=== PATIENT | male | born 1940 | race Caucasian/White ===

== ENCOUNTER 2024-06-07 18:46 | Emergency (ER) | payer MEDICARE ==
[2024-06-07 19:01] VITALS: RESP 18
--- NOTE | 2024-06-07 19:43 | ED ---
Abdominal Pain HPI - General Chief Complaint: Abdominal Pain Stated Complaint: abd pain Time Seen by Provider: 06/07/24 19:05 Source: patient, family, EMS, RN notes reviewed Mode of arrival: EMS Limitations: no limitations - History of Present Illness Initial Comments: This is an 83-year-old male who presents to the emergency department for abdominal pain. Patient reports that he has been having pain in the right groin region for several days and has also had a rash to this area. Today he noticed that when he stood up the pain became severe in the groin and right lower quadrant and he was unable to walk. Per his sister they also noticed him to be short of breath. EMS was ultimately contacted to bring the patient to the emergency department. Denies any nausea or vomiting. He does note increased urinary frequency. Denies any changes in bowel habits. His sister also notes that over the last few weeks his balance seems to be off. His Depakote was just increased and she is unsure if it may be related to that. MD Complaint: abdominal pain - Related Data Home Medications Medication Instructions Recorded Confirmed Aspirin EC [Ecotrin Low Dose] 81 mg PO DAILY@1200 06/07/24 06/07/24 Divalproex Sodium [Divalproex 500 mg PO BID 06/07/24 06/07/24 Sodium ER] Donepezil [Aricept] 10 mg PO DAILY 06/07/24 06/07/24 Nystatin 100,000 Unit/gm Powd 1 applic TOPICAL BID 06/07/24 06/07/24 [Mycostatin Powder] amLODIPine [Norvasc] 5 mg PO DAILY@1200 06/07/24 06/07/24 levETIRAcetam [Keppra] 1,000 mg PO Q12HR 06/07/24 06/07/24 Allergies Allergy/AdvReac Type Severity Reaction Status Date / Time No Known Allergies Allergy Verified 06/07/24 20:15 Review of Systems ROS Statement: Those systems with pertinent positive or pertinent negative responses have been documented in the HPI. ROS Other: All systems not noted in ROS Statement are negative. Past Medical History Past Medical History: Unable to Obtain, Hypertension History of Any Multi-Drug Resistant Organisms: None Reported Past Surgical History: Unable to Obtain Past Psychological History: No Psychological Hx Reported Smoking Status: Never smoker Past Alcohol Use History: Rare Past Drug Use History: None Reported General Exam Limitations: no limitations General appearance: alert, in no apparent distress Head exam: Present: atraumatic, normocephalic, normal inspection Respiratory exam: Present: normal lung sounds bilaterally. Absent: respiratory distress, wheezes, rales, rhonchi, stridor Cardiovascular Exam: Present: regular rate, normal rhythm, normal heart sounds. Absent: systolic murmur, diastolic murmur, rubs, gallop, clicks GI/Abdominal exam: Present: soft, tenderness (RLQ), normal bowel sounds, hernia. Absent: distended Neurological exam: Present: alert, oriented X3, CN II-XII intact Psychiatric exam: Present: normal affect, normal mood Skin exam: Present: warm, dry, intact, normal color. Absent: rash Course Vital Signs 06/07/24 06/07/24 18:57 21:53 Temperature 97.7 F 97.8 F Pulse Rate 58 L 63 Respiratory 18 18 Rate Blood Pressure 143/69 135/98 O2 Sat by Pulse 95 94 L Oximetry Medical Decision Making - Medical Decision Making This is an 83 year old male who presents to the emergency department for abdominal pain. Was pt. sent in by a medical professional or institution? @ -[facility] Did you speak to anyone other than the patient for history? @ -His sister provided the information about the Depakote level and shortness of breath Did you review nursing and triage notes? @ -Yes, and I agree, it is accurate with regards to the patient's symptoms. Were old charts reviewed? @ -No Differential Diagnosis? @ -Differential Dyspnea: Coronary syndrome, arrhythmia, tamponade, asthma, COPD, pulmonary embolism, pneumonia, pneumothorax, pulmonary effusion, anaphylaxis, diabetic ketoacidosis, flailed chest, pulmonary contusion, diaphragmatic rupture, anemia, neuromuscular, this is not meant to be an all-inclusive list. EKG interpreted by me (3pts min.)? @ -EKG interpreted by me demonstrating the following: Sinus bradycardia. Ventricular rate 59 bpm, NH interval 203 ms, QRS duration 103 ms, QTc 426 ms. X-rays interpreted by me (1pt min.)? @ -Chest x-ray obtained, my interpretation identifies no localized consolidations or infiltrates. CT interpreted by me (1pt min.)? @ -CT scan of the abdomen and pelvis obtained. My interpretation identifies a right inguinal hernia. U/S interpreted by me (1pt. min.)? @ -Not obtained What testing was considered but not performed? (CT, X-rays, U/S, labs)? Why? @ -None What meds were considered but not given? Why? @ -None Did you discuss the management of the patient with other professionals? @ -No Did you reconcile home meds? @ -No Was smoking cessation discussed for >3mins.? @ -No Was critical care preformed (if so, how long)? @ -No Were there social determinants of health that impacted care today? How? (Homelessness, low income, unemployed, alcoholism, drug addiction, transportation, low edu. Level, literacy, decrease access to med. care, [facility], rehab)? @ -No Was there de-escalation of care discussed even if they declined? (Discuss DNR or withdrawal of care, Hospice)? @ -No What co-morbidities impacted this encounter? (DM, HTN, Smoking, COPD, CAD, Cancer, CVA, Hep., AIDS, mental health diagnosis, sleep apnea, morbid obesity)? @ -HTN, seizure disorder Was patient admitted / discharged? @ -Discharged. Lab work unremarkable aside from Depakote level, which appears to be subtherapeutic. Urinalysis negative for signs of infection. Chest x-ray reveals no acute process. CT scan of the abdomen pelvis demonstrates a right inguinal hernia containing a loop of small bowel. No evidence of obstruction was identified. They advised correlation with physical exam for incarceration. He did have an inguinal hernia on exam, however this was easily reducible. P froylan was also not in any distress at that time. Advised that because this is reducible he can be discharged home. He was given information for follow-up with general surgery regarding the hernia and we discussed return parameters regarding it. Case discussed with ED attending, Dr. Gomes. Return precautions reviewed in depth, the patient is instructed to return to the emergency department with any new, worsening, or concerning symptoms. Patient verbalized understanding. Undiagnosed new problem with uncertain prognosis? @ -None Drug Therapy requiring intensive monitoring for toxicity (Heparin, Nitro, Insulin, Cardizem)? @ -None Were any procedures done? @ -None Diagnosis/symptom? @ -Right inguinal hernia Acute, or Chronic, or Acute on Chronic? @ -Acute Uncomplicated (without systemic symptoms) or Complicated (systemic symptoms)? @ -Uncomplicated Side effects of treatment? @ -None Exacerbation, Progression, or Severe Exacerbation] @ -Not applicable Poses a threat to life or bodily function? @ -No - Lab Data Result diagrams: 06/07/24 19:43 06/07/24 19:43 Lab Results 06/07/24 06/07/24 06/07/24 Range/Units 19:43 19:43 19:43 WBC 3.6 L (3.8-10.6) k/uL RBC 5.29 (4.30-5.90) m/uL Hgb 15.8 (13.0-17.5) gm/dL Hct 46.7 (39.0-53.0) % MCV 88.3 (80.0-100.0) fL MCH 29.8 (25.0-35.0) pg MCHC 33.8 (31.0-37.0) g/dL RDW 13.3 (11.5-15.5) % Plt Count 144 L (150-450) k/uL MPV 8.3 Neutrophils % 65 % Lymphocytes % 24 % Monocytes % 6 % Eosinophils % 3 % Basophils % 1 % Neutrophils # 2.3 (1.3-7.7) k/uL Lymphocytes # 0.9 L (1.0-4.8) k/uL Monocytes # 0.2 (0-1.0) k/uL Eosinophils # 0.1 (0-0.7) k/uL Basophils # 0.0 (0-0.2) k/uL Sodium 137 (137-145) mmol/L Potassium 4.1 (3.5-5.1) mmol/L Chloride 105 (98-107) mmol/L Carbon Dioxide 27 (22-30) mmol/L Anion Gap 5 mmol/L BUN 15 (9-20) mg/dL Creatinine 0.99 (0.66-1.25) mg/dL Est GFR (CKD-EPI)AfAm 82 (>60 ml/min/1.73 sqM) Est GFR (CKD-EPI)NonAf 71 (>60 ml/min/1.73 sqM) Glucose 111 H (74-99) mg/dL Plasma Lactic Acid Ryland 1.1 (0.7-2.0) mmol/L Calcium 9.3 (8.4-10.2) mg/dL Magnesium 2.3 (1.6-2.3) mg/dL Total Bilirubin 0.6 (0.2-1.3) mg/dL AST 29 (17-59) U/L ALT 23 (4-49) U/L Alkaline Phosphatase 63 (38-126) U/L Troponin I (0.000-0.034) ng/mL Total Protein 6.9 (6.3-8.2) g/dL Albumin 4.2 (3.5-5.0) g/dL Amylase 87 (30-110) U/L Lipase 73 (23-300) U/L Urine Color Urine Appearance (Clear) Urine pH (5.0-8.0) Ur Specific [place] (1.001-1.035) Urine Protein (Negative) Urine Glucose (UA) (Negative) Urine Ketones (Negative) Urine Blood (Negative) Urine Nitrite (Negative) Urine Bilirubin (Negative) Urine Urobilinogen (<2.0) mg/dL Ur Leukocyte Esterase (Negative) Valproic Acid 42.4 ug/mL 06/07/24 06/07/24 Range/Units 19:43 19:43 WBC (3.8-10.6) k/uL RBC (4.30-5.90) m/uL Hgb (13.0-17.5) gm/dL Hct (39.0-53.0) % MCV (80.0-100.0) fL MCH (25.0-35.0) pg MCHC (31.0-37.0) g/dL RDW (11.5-15.5) % Plt Count (150-450) k/uL MPV Neutrophils % % Lymphocytes % % Monocytes % % Eosinophils % % Basophils % % Neutrophils # (1.3-7.7) k/uL Lymphocytes # (1.0-4.8) k/uL Monocytes # (0-1.0) k/uL Eosinophils # (0-0.7) k/uL Basophils # (0-0.2) k/uL Sodium (137-145) mmol/L Potassium (3.5-5.1) mmol/L Chloride (98-107) mmol/L Carbon Dioxide (22-30) mmol/L Anion Gap mmol/L BUN (9-20) mg/dL Creatinine (0.66-1.25) mg/dL Est GFR (CKD-EPI)AfAm (>60 ml/min/1.73 sqM) Est GFR (CKD-EPI)NonAf (>60 ml/min/1.73 sqM) Glucose (74-99) mg/dL Plasma Lactic Acid [place] (0.7-2.0) mmol/L Calcium (8.4-10.2) mg/dL Magnesium (1.6-2.3) mg/dL Total Bilirubin (0.2-1.3) mg/dL AST (17-59) U/L ALT (4-49) U/L Alkaline Phosphatase (38-126) U/L Troponin I <0.012 (0.000-0.034) ng/mL Total Protein (6.3-8.2) g/dL Albumin (3.5-5.0) g/dL Amylase (30-110) U/L Lipase (23-300) U/L Urine Color Colorless Urine Appearance Clear (Clear) Urine pH 7.0 (5.0-8.0) Ur Specific [place] 1.017 (1.001-1.035) Urine Protein Negative (Negative) Urine Glucose (UA) Negative (Negative) Urine Ketones Trace H (Negative) Urine Blood Negative (Negative) Urine Nitrite Negative (Negative) Urine Bilirubin Negative (Negative) Urine Urobilinogen <2.0 (<2.0) mg/dL Ur Leukocyte Esterase Negative (Negative) Valproic Acid ug/mL - Radiology Data Radiology results: report reviewed, image reviewed Disposition Clinical Impression: Right inguinal hernia Disposition: HOME SELF-CARE Instructions (If sedation given, give patient instructions): Inguinal Hernia (ED) Additional Instructions: Return to the emergency department with any new, worsening, or concerning symptoms, especially if you develop severe pain over the right groin region or the bulge will not go back in. Contact the general surgery office listed below first thing tomorrow morning. Let them know that you were seen in the emergency department for right groin pain and found to have an inguinal hernia containing bowel loops that may need repair. Is patient prescribed a controlled substance at d/c from ED?: No Referrals: Willian Solis MD [Primary Care Provider] - 1-2 days Derek Madrid MD [STAFF PHYSICIAN] - 1-2 days Time of Disposition: 21:41
[2024-06-07 20:14] LABS: Appearance,Urine Clear (Clear); Bilirubin,Urine Negative (Negative); Blood,Urine Negative (Negative); Color,Urine Colorless; Glucose,Urine (UA) Negative (Negative); Ketones,Urine Trace (Negative); Leukocyte Esterase,Urine Negative (Negative); Nitrite,Urine Negative (Negative); Protein,Urine Negative (Negative); Specific Gravity,Urine 1.017 (1.001-1.035); Urobilinogen,Urine <2.0 mg/dL (<2.0)
[2024-06-07 20:24] LABS: Basophils % (A) 1 %; Eosinophils # (A) 0.1 k/uL (0-0.7); Eosinophils % (A) 3 %; HCT 46.7 % (39.0-53.0); HGB 15.8 gm/dL (13.0-17.5); Lymphocytes # (A) 0.9 k/uL (1.0-4.8); Lymphocytes % (A) 24 %; MCH 29.8 pg (25.0-35.0); MCHC 33.8 g/dL (31.0-37.0); MCV 88.3 fL (80.0-100.0); Mean Platelet Volume 8.3; Monocytes # (A) 0.2 k/uL (0-1.0); Monocytes % (A) 6 %; Neutrophils # (A) 2.3 k/uL (1.3-7.7); Neutrophils % (A) 65 %; Platelet Count 144 k/uL (150-450); RBC 5.29 m/uL (4.30-5.90); RDW 13.3 % (11.5-15.5); WBC 3.6 k/uL (3.8-10.6)
[2024-06-07 20:28] LABS: ALT 23 U/L (4-49); AST 29 U/L (17-59); African American GFR (CKD) 82 (>60 ml/min/1.73 sqM); Albumin 4.2 g/dL (3.5-5.0); Alkaline Phosphatase 63 U/L (38-126); Amylase 87 U/L (30-110); Anion Gap 5 mmol/L; Blood Urea Nitrogen 15 mg/dL (9-20); Calcium 9.3 mg/dL (8.4-10.2); Carbon Dioxide 27 mmol/L (22-30); Chloride 105 mmol/L (98-107); Glucose 111 mg/dL (74-99); Lipase 73 U/L (23-300); Magnesium 2.3 mg/dL (1.6-2.3); Non-African American GFR(CKD) 71 (>60 ml/min/1.73 sqM); Potassium 4.1 mmol/L (3.5-5.1); Sodium 137 mmol/L (137-145); Total Bilirubin 0.6 mg/dL (0.2-1.3); Total Protein 6.9 g/dL (6.3-8.2)
[2024-06-07 20:33] LABS: Valproic Acid (Depakene) 42.4 ug/mL
--- NOTE | 2024-06-07 20:42 | XR ---
EXAMINATION TYPE: XR chest 2V DATE OF EXAM: 06/07/2024 8:33 PM CLINICAL INDICATION:Male, 83 years old with history of LETTY; [facility] COMPARISON: None TECHNIQUE: XR chest 2V Frontal and lateral views of the chest. FINDINGS: Lungs/Pleura: There is no evidence of pleural effusion, focal consolidation, or pneumothorax. Pulmonary vascularity: Unremarkable. Heart/mediastinum: Cardiomediastinal silhouette is unremarkable. Musculoskeletal: No acute osseous pathology. IMPRESSION: No acute cardiopulmonary disease/process.
--- NOTE | 2024-06-07 21:16 | CT ---
EXAMINATION TYPE: CT abdomen pelvis w con CT DLP: 1124.3 mGycm, Automated exposure control for dose reduction was used. DATE OF EXAM: 06/07/2024 9:05 PM COMPARISON: None. CLINICAL INDICATION:Male, 83 years old with history of RLQ and right groin pain; RLQ and Rt side groi n pain. TECHNIQUE: Axial CT of the abdomen and pelvis. Sagittal and coronal reformats were created on a [employer] workstation. Contrast used:100ml mL of Isovue 300 with IV Contrast, (none if empty) Oral contrast used: without Oral Contrast (none if empty) FINDINGS: LOWER CHEST: Unremarkable ABDOMEN LIVER: Hepatic cysts are identified. GALLBLADDER AND BILE DUCTS: Unremarkable. PANCREAS: Unremarkable. SPLEEN: Unremarkable. ADRENAL GLANDS: Unremarkable. KIDNEYS AND URETERS: No evidence of hydronephrosis or renal calculus. The ureters are unremarkable. PELVIS BLADDER: Unremarkable REPRODUCTIVE: Prostate is enlarged in size measuring 6.5 cm in transverse dimension. ABDOMEN & PELVIS STOMACH AND BOWEL: Stomach and duodenum are unremarkable. There is a right normal hernia identified w ith a loop of small bowel seen entering. No evidence of upstream bowel dilation. The amount of simple fluid is noted within the hernia sac. Colonic diverticula are identified without inflammatory change . PERITONEUM/RETROPERITONEUM: No evidence of pneumoperitoneum or free fluid. VASCULATURE: No evidence of aortic aneurysm. MUSCULOSKELETAL: No acute osseous abnormalities. Mild disc degeneration changes are present throughou t the thoracolumbar spine. LYMPH NODES: No gross evidence for lymphadenopathy. SOFT TISSUE/ABDOMINAL WALL: Unremarkable IMPRESSION: 1. Right inguinal hernia containing a loop of small bowel. No evidence of obstruction. Correlate with physical exam findings for incarceration. 2. Prostatomegaly. 3. Colonic diverticulosis.
[2024-06-07 21:55] VITALS: BP 135/98; PULSE 63; TEMP 97.8
== END 2024-06-07 21:53 | disposition home or self-care (01) ==
LOC: EC 18:46
CPT/HCPCS: 36415; 71046; 74177; 80053; 80164; 81003; 82150; 83605; 83690; 83735; 84484; 85025; 93005; 99285

== ENCOUNTER 2024-06-28 10:30 | Emergency (ER) | payer MEDICARE ==
--- NOTE | 2024-06-28 11:59 | ED ---
Abdominal Pain HPI - General Chief Complaint: Abdominal Pain Stated Complaint: Abd/groin pain Time Seen by Provider: 06/28/24 11:50 Source: patient, family, RN notes reviewed Mode of arrival: ambulatory Limitations: no limitations - History of Present Illness Initial Comments: This is an 83-year-old male who presents to the emergency department for abdom inal pain. Patient was diagnosed with a right inguinal hernia last month. He has surgery scheduled with Dr. Madrid to have this repaired on 07/04. States that he was essentially asymptomatic after being discharged on the up until yesterday, when he started to develop pain to the right groin again. This is starting to spread across the abdomen. Denies any nausea, vomiting, diarrhea, or constipation. MD Complaint: abdominal pain - Related Data Home Medications Medication Instructions Recorded Confirmed Aspirin EC [Ecotrin Low Dose] 81 mg PO DAILY@1600 06/07/24 06/28/24 Divalproex Sodium [Divalproex 250 mg PO DAILY 06/07/24 06/28/24 Sodium ER] Nystatin 100,000 Unit/gm Powd 1 applic TOPICAL BID 06/07/24 06/28/24 [Mycostatin Powder] amLODIPine [Norvasc] 5 mg PO DAILY@1200 06/07/24 06/28/24 levETIRAcetam [Keppra] 1,000 mg PO Q12HR 06/07/24 06/28/24 Divalproex ER [Depakote ER] 500 mg PO HS 06/28/24 06/28/24 Donepezil [Aricept] 10 mg PO DAILY 06/28/24 06/28/24 Ginkgo Biloba [place] Extract [Ginkgo 125 mg PO PC-BRKFST 06/28/24 06/28/24 Biloba] Multivitamins, Thera [Multivitamin 1 tab PO DAILY 06/28/24 06/28/24 (formulary)] Vitamin B Complex 1 cap PO PC-BRKFST 06/28/24 06/28/24 Allergies Allergy/AdvReac Type Severity Reaction Status Date / Time No Known Allergies Allergy Verified 06/28/24 13:13 Review of Systems ROS Statement: Those systems with pertinent positive or pertinent negative responses have been documented in the HPI. ROS Other: All systems not noted in ROS Statement are negative. Past Medical History Past Medical History: Unable to Obtain, Hypertension, Prostate Disorder History of Any Multi-Drug Resistant Organisms: None Reported Past Surgical History: Unable to Obtain Past Psychological History: No Psychological Hx Reported Smoking Status: Never smoker Past Alcohol Use History: Rare Past Drug Use History: None Reported General Exam - General Exam Comments Initial Comments: Visual Physical Exam Vital signs reviewed General: Well-appearing, nontoxic, no acute distress. Head: Normocephalic, atraumatic Eyes: PERRLA, EOMI ENT: Airway patent Chest: Nonlabored breathing Skin: No visual rash, normal skin tone Neuro: Alert and oriented 3 Musculoskeletal: No gross abnormalities Limitations: no limitations General appearance: alert, in no apparent distress Head exam: Present: atraumatic, normocephalic, normal inspection Respiratory exam: Present: normal lung sounds bilaterally. Absent: respiratory distress, wheezes, rales, rhonchi, stridor Cardiovascular Exam: Present: regular rate, normal rhythm, normal heart sounds. Absent: systolic murmur, diastolic murmur, rubs, gallop, clicks GI/Abdominal exam: Present: soft, normal bowel sounds. Absent: distended, tenderness, guarding, rebound, rigid exam: Present: other (Right inguinal hernia) Neurological exam: Present: alert, oriented X3, CN II-XII intact Psychiatric exam: Present: normal affect, normal mood Skin exam: Present: warm, dry, intact, normal color. Absent: rash Course Vital Signs 06/28/24 06/28/24 06/28/24 10:39 13:43 15:48 Temperature 97.3 F L 98 F Pulse Rate 50 L 58 L 70 Respiratory 18 18 16 Rate Blood Pressure 131/72 128/74 150/88 O2 Sat by Pulse 96 96 98 Oximetry Medical Decision Making - Medical Decision Making This is an 83 year old male who presents to the emergency department for abdominal pain. Was pt. sent in by a medical professional or institution? @ -No Did you speak to anyone other than the patient for history? @ -No Did you review nursing and triage notes? @ -Yes, and I agree, it is accurate with regards to the patient's symptoms. Were old charts reviewed? @ -No Differential Diagnosis? @ -Differential Abdominal Pain Men: Appendicitis, cholecystitis, diverticulosis, ischemic bowel, pancreatitis, hepatitis, UTI, gastroenteritis, AAA, incarcerated hernia, bowel obstruction, constipation, inflammatory bowel, hepatitis, peptic ulcer disease, splenic infarction, perforated viscus, testicular torsion, this is not meant to be an all-inclusive list EKG interpreted by me (3pts min.)? @ -EKG interpreted by me demonstrating the following: Sinus rhythm. Ventric ular rate 60 bpm, MO interval 238 ms, QRS duration 116 ms, QTc 458 ms. X-rays interpreted by me (1pt min.)? @ -Not obtained CT interpreted by me (1pt min.)? @ -Not obtained U/S interpreted by me (1pt. min.)? @ -Ultrasound of the groin obtained. My interpretation identifies an inguinal hernia. What testing was considered but not performed? (CT, X-rays, U/S, labs)? Why? @ -None What meds were considered but not given? Why? @ -None Did you discuss the management of the patient with other professionals? @ -No Did you reconcile home meds? @ -No Was smoking cessation discussed for >3mins.? @ -No Was critical care preformed (if so, how long)? @ -No Were there social determinants of health that impacted care today? How? (Homelessness, low income, unemployed, alcoholism, drug addiction, transportation, low edu. Level, literacy, decrease access to med. care, longterm, rehab)? @ -No Was there de-escalation of care discussed even if they declined? (Discuss DNR or withdrawal of care, Hospice)? @ -No What co-morbidities impacted this encounter? (DM, HTN, Smoking, COPD, CAD, Cancer, CVA, Hep., AIDS, mental health diagnosis, sleep apnea, morbid obesity)? @ -None Was patient admitted / discharged? @ -Discharged. Lab work unremarkable. Urinalysis negative for signs of infection. Symptoms resolved with a dose of Toradol. Ultrasound of the groin obtained demonstrating the inguinal hernia, which was easily reduced with the ultrasound prope. On exam the hernia was easily reducible as well. Discussed with the patient that because the hernia is able to be reduced and there is no sign of strangulation or incarceration, he can be discharged home to follow-up outpatient. However, should he develop increasing pain or the hernia is nonreducible, he is advised he should return to the emergency department for further evaluation. Patient discharged home in stable condition. Case discussed with ED attending Dr. Adler. Return precautions reviewed in depth, the patient is instructed to return to the emergency department with any new, worsening, or concerning symptoms. Patient verbalized understanding. Undiagnosed new problem with uncertain prognosis? @ -None Drug Therapy requiring intensive monitoring for toxicity (Heparin, Nitro, Insulin, Cardizem)? @ -None Were any procedures done? @ -None Diagnosis/symptom? @ -Right inguinal hernia Acute, or Chronic, or Acute on Chronic? @ -Acute Uncomplicated (without systemic symptoms) or Complicated (systemic symptoms)? @ -Uncomplicated Side effects of treatment? @ -None Exacerbation, Progression, or Severe Exacerbation] @ -Not applicable Poses a threat to life or bodily function? @ -No - Lab Data Result diagrams: 06/28/24 11:49 06/28/24 11:49 Lab Results 06/28/24 06/28/24 06/28/24 Range/Units 11:49 11:49 11:49 WBC 5.8 (3.8-10.6) k/uL RBC 5.23 (4.30-5.90) m/uL Hgb 15.4 (13.0-17.5) gm/dL Hct 46.5 (39.0-53.0) % MCV 88.8 (80.0-100.0) fL MCH 29.3 (25.0-35.0) pg MCHC 33.0 (31.0-37.0) g/dL RDW 13.1 (11.5-15.5) % Plt Count 167 (150-450) k/uL MPV 7.6 Neutrophils % 79 % Lymphocytes % 13 % Monocytes % 5 % Eosinophils % 1 % Basophils % 0 % Neutrophils # 4.6 (1.3-7.7) k/uL Lymphocytes # 0.7 L (1.0-4.8) k/uL Monocytes # 0.3 (0-1.0) k/uL Eosinophils # 0.1 (0-0.7) k/uL Basophils # 0.0 (0-0.2) k/uL Sodium 140 (137-145) mmol/L Potassium 4.4 (3.5-5.1) mmol/L Chloride 103 (98-107) mmol/L Carbon Dioxide 28 (22-30) mmol/L Anion Gap 9 mmol/L BUN 19 (9-20) mg/dL Creatinine 1.11 (0.66-1.25) mg/dL Est GFR (CKD-EPI)AfAm 71 (>60 ml/min/1.73 sqM) Est GFR (CKD-EPI)NonAf 62 (>60 ml/min/1.73 sqM) Glucose 60 L (74-99) mg/dL Plasma Lactic Acid [place] (0.7-2.0) mmol/L Calcium 9.4 (8.4-10.2) mg/dL Total Bilirubin 0.6 (0.2-1.3) mg/dL AST 30 (17-59) U/L ALT 27 (4-49) U/L Alkaline Phosphatase 50 (38-126) U/L Total Protein 6.9 (6.3-8.2) g/dL Albumin 4.3 (3.5-5.0) g/dL Urine Color Yellow Urine Appearance Clear (Clear) Urine pH 6.0 (5.0-8.0) Ur Specific [place] 1.027 (1.001-1.035) Urine Protein Trace H (Negative) Urine Glucose (UA) Negative (Negative) Urine Ketones Negative (Negative) Urine Blood Negative (Negative) Urine Nitrite Negative (Negative) Urine Bilirubin Negative (Negative) Urine Urobilinogen <2.0 (<2.0) mg/dL Ur Leukocyte Esterase Negative (Negative) 06/28/24 Range/Units 11:49 WBC (3.8-10.6) k/uL RBC (4.30-5.90) m/uL Hgb (13.0-17.5) gm/dL Hct (39.0-53.0) % MCV (80.0-100.0) fL MCH (25.0-35.0) pg MCHC (31.0-37.0) g/dL RDW (11.5-15.5) % Plt Count (150-450) k/uL MPV Neutrophils % % Lymphocytes % % Monocytes % % Eosinophils % % Basophils % % Neutrophils # (1.3-7.7) k/uL Lymphocytes # (1.0-4.8) k/uL Monocytes # (0-1.0) k/uL Eosinophils # (0-0.7) k/uL Basophils # (0-0.2) k/uL Sodium (137-145) mmol/L Potassium (3.5-5.1) mmol/L Chloride (98-107) mmol/L Carbon Dioxide (22-30) mmol/L Anion Gap mmol/L BUN (9-20) mg/dL Creatinine (0.66-1.25) mg/dL Est GFR (CKD-EPI)AfAm (>60 ml/min/1.73 sqM) Est GFR (CKD-EPI)NonAf (>60 ml/min/1.73 sqM) Glucose (74-99) mg/dL Plasma Lactic Acid [place] 1.1 (0.7-2.0) mmol/L Calcium (8.4-10.2) mg/dL Total Bilirubin (0.2-1.3) mg/dL AST (17-59) U/L ALT (4-49) U/L Alkaline Phosphatase (38-126) U/L Total Protein (6.3-8.2) g/dL Albumin (3.5-5.0) g/dL Urine Color Urine Appearance (Clear) Urine pH (5.0-8.0) Ur Specific [place] (1.001-1.035) Urine Protein (Negative) Urine Glucose (UA) (Negative) Urine Ketones (Negative) Urine Blood (Negative) Urine Nitrite (Negative) Urine Bilirubin (Negative) Urine Urobilinogen (<2.0) mg/dL Ur Leukocyte Esterase (Negative) - Radiology Data Radiology results: report reviewed, image reviewed Disposition Clinical Impression: Right inguinal hernia Disposition: HOME SELF-CARE Instructions (If sedation given, give patient instructions): Inguinal Hernia (ED) Additional Instructions: Return to the emergency department with any new, worsening, or concerning symptoms. Take Tylenol as needed for pain relief. Follow-up with Dr. Madrid for surgery as scheduled. Is patient prescribed a controlled substance at d/c from ED?: No Referrals: Willian Solis MD [Primary Care Provider] - 1-2 days Time of Disposition: 14:56
[2024-06-28 12:43] LABS: Basophils % (A) 0 %; Eosinophils # (A) 0.1 k/uL (0-0.7); Eosinophils % (A) 1 %; HCT 46.5 % (39.0-53.0); HGB 15.4 gm/dL (13.0-17.5); Lymphocytes # (A) 0.7 k/uL (1.0-4.8); Lymphocytes % (A) 13 %; MCH 29.3 pg (25.0-35.0); MCV 88.8 fL (80.0-100.0); Mean Platelet Volume 7.6; Monocytes # (A) 0.3 k/uL (0-1.0); Monocytes % (A) 5 %; Neutrophils # (A) 4.6 k/uL (1.3-7.7); Neutrophils % (A) 79 %; Platelet Count 167 k/uL (150-450); RBC 5.23 m/uL (4.30-5.90); RDW 13.1 % (11.5-15.5); WBC 5.8 k/uL (3.8-10.6)
[2024-06-28 12:59] LABS: ALT 27 U/L (4-49); AST 30 U/L (17-59); African American GFR (CKD) 71 (>60 ml/min/1.73 sqM); Albumin 4.3 g/dL (3.5-5.0); Alkaline Phosphatase 50 U/L (38-126); Anion Gap 9 mmol/L; Blood Urea Nitrogen 19 mg/dL (9-20); Calcium 9.4 mg/dL (8.4-10.2); Carbon Dioxide 28 mmol/L (22-30); Chloride 103 mmol/L (98-107); Glucose 60 mg/dL (74-99); Non-African American GFR(CKD) 62 (>60 ml/min/1.73 sqM); Potassium 4.4 mmol/L (3.5-5.1); Sodium 140 mmol/L (137-145); Total Bilirubin 0.6 mg/dL (0.2-1.3); Total Protein 6.9 g/dL (6.3-8.2)
[2024-06-28] MEDS: KETOROLAC 15 MG/ML 1 ML VIAL IVP STA (13:35)
[2024-06-28 13:46] LABS: Appearance,Urine Clear (Clear); Bilirubin,Urine Negative (Negative); Blood,Urine Negative (Negative); Color,Urine Yellow; Glucose,Urine (UA) Negative (Negative); Ketones,Urine Negative (Negative); Leukocyte Esterase,Urine Negative (Negative); Nitrite,Urine Negative (Negative); Protein,Urine Trace (Negative); Specific Gravity,Urine 1.027 (1.001-1.035); Urobilinogen,Urine <2.0 mg/dL (<2.0)
--- NOTE | 2024-06-28 14:19 | US ---
EXAMINATION TYPE: US groin RT DATE OF EXAM: 06/28/2024 COMPARISON: CT 06/07/2024 CLINICAL INDICATION: Male, 83 years old with history of Increased pain with hernia; known hernia, mor e painful TECHNIQUE: several images taken at area of concern FINDINGS: there is a large bowel containing hernia at the right groin, herniating into the scrotum. It is mobile with valsalva maneuver, reducible with transducer pressure, and exhibits peristalsing kelsey wel. Neck measures 1.9cm, unable to obtain accurate size measurements due to large size extending beyond f ield of view. estimates made using curvilinear transducer: 9.4x5.9cm comparable to CT IMPRESSION: Large bowel containing hernia extending down into the scrotum as seen on prior CT 06/07/20 24. No wall thickening definitively visualized consider surgical evaluation. [facility], , 06/28/2024 2:17 PM
[2024-06-28 15:49] VITALS: BP 150/88; PULSE 70; RESP 16; TEMP 98
== END 2024-06-28 15:48 | disposition home or self-care (01) ==
LOC: EC 10:30
DX: K40.90 Unilateral inguinal hernia, without obstruction or gangrene, not specified as recurrent (principal)
CPT/HCPCS: 36415; 80053; 81003; 83605; 85025; 93005; 96374; 99284

== ENCOUNTER 2024-07-04 07:09 | Day surgery (SDC) | payer MEDICARE ==
[2024-06-30 08:44] VITALS: BMI 29.3
[2024-07-04] MEDS: LACTATED RINGERS 1,000 ML IV SCH (08:30)
[2024-07-04] MEDS: TAMSULOSIN 0.4 MG CAP.ER.24H PO STA (08:34)
[2024-07-04] MEDS: ONDANSETRON 4 MG/2 ML VIAL IVP STA (08:37)
[2024-07-04] MEDS: DEXAMETHASONE SOD PHOSPHATE 4 MG/ML 1 ML VIAL IVP STA (08:38)
[2024-07-04] MEDS: MIDAZOLAM 2 MG/2 ML VIAL IVP ONE (08:51)
--- NOTE | 2024-07-04 08:58 | P.ANPRN ---
Procedure Note - Anesthesia - Nerve Block Performed Bilateral Erector Spinae Single Time Out Performed: Yes (0850) Date of Procedure: 07/04/24 Procedure Start Time: 08:53 Procedure Stop Time: 09:00 Location of Patient: PreOp Indication: Acute Post-Operative Pain, Requested by Surgeon Sedation Type: Sedate with meaningful contact maintained Preparation: Sterile Prep, Sterile Dressing Position: Prone Catheter: None Needle Gauge: 21 Ultrasound used to visualize needle placement: Yes Ultrasound used to observe medication spread: Yes Injectate: 0.5% Ropivacaine (see comment for volume) (20 mL of block solution on each side. Preservative-free normal saline the block solution containing 10 mL of 0.5% ropivacaine mixed with 10 mL of) Blood Aspirated: No Pain Paresthesia on Injection Noted: No Resistance on Injection: Normal Image Stored and Saved: Yes Events: Uneventful and Well Tolerated
[2024-07-04] MEDS: HEPARIN SODIUM,PORCINE 5,000 UNIT/ML 1 ML VIAL SQ STA (09:15)
[2024-07-04] MEDS ORDERED: LIDOCAINE 1% INJ 10MG/ML (20 ML MDV) ONE (09:17)
[2024-07-04] MEDS ORDERED: GLYCOPYRROLATE 0.2 MG/ML 2 ML VIAL ONE (09:17)
[2024-07-04] MEDS ORDERED: ROPIVACAINE 5 MG/ML 30 ML VIAL ONE (09:17)
[2024-07-04] MEDS ORDERED: SUCCINYLCHOLINE CHLORIDE 200 MG/10 ML VIAL IV ONE (09:17)
[2024-07-04] MEDS ORDERED: fentaNYL (PF) 50 MCG/ML 2 ML AMP ONE (09:17)
[2024-07-04] MEDS ORDERED: PROPOFOL 10 MG/ML 20 ML VIAL IV ONE (09:17)
[2024-07-04] MEDS ORDERED: ROCURONIUM 10 MG/ML (5 ML VIAL) IV ONE (09:17)
[2024-07-04] MEDS ORDERED: SODIUM CHLORIDE 0.9% (PF) 10 ML VIAL ONE (09:17)
[2024-07-04] MEDS ORDERED: SUGAMMADEX SODIUM 200 MG/2 ML SDV IV ONE (09:17)
[2024-07-04] MEDS ORDERED: NEOSTIGMINE 1 MG/ML 10 ML VIAL ONE (09:17)
[2024-07-04] MEDS: LIDOCAINE 1%-EPI 1:100,000 20 ML VIAL SQ ONE (09:39)
--- NOTE | 2024-07-04 10:16 | P.OP ---
Date of Procedure: 07/04/24 Preoperative Diagnosis: right inguinal hernia Postoperative Diagnosis: Right inguinal hernia Procedure(s) Performed: Laparoscopic robotic cyst repair of right inguinal hernia Excision of cord lipoma Transversus abdominis plane block Anesthesia: NICK Surgeon: Derek Madrid Estimated Blood Loss (ml): 5 Pathology: other (Cord lipoma) Condition: stable Disposition: PACU Description of Procedure: The patient's placed on the operating table in the supine position. The patient received general anesthesia. The patient's abdomen was prepped and draped in usual sterile fashion. The skin was anesthetized 1% local Xylocaine at the incision sites. Using an 11 blade a skin incision was made at the umbilicus. The fascia was grasped with a Cintia and then the peritoneal cavity was entered with the Veress needle. Position of the Veress needle was confirmed with a positive drop test. After adequate insufflation a 5 mm trocar was placed into the peritoneal cavity. The Laparoscope was placed the peritoneal cavity. And a robotic 8 mm trocar was placed in the right lateral position and then another 8 mm robotic trochars placed in the left lateral position. The original 5 mm trocar was exchanged for a 12 mm trocar. The patient was placed in reverse Trendelenburg and then the patient was docked to the robot. A four-quadrant transversus abdominis plane block was performed 1% local Xylocaine. Next the peritoneum over top of the hernia was incised and then using blunt and sharp dissection and electrocautery the hernia sac was dissected free from the floor of the inguinal canal. Cord lipoma dissected free sent to pathology. The hernia sac was completely reduced into the peritoneal cavity. And then using the Pro deputy court clerk mesh the hernia was repaired. The peritoneum was then sutured with 20V lock suture. The patient was then undocked the robot. The needle was w ithdrawn from the peritoneal cavity. The umbilical trocar site was closed with 0 Ethibond suture. The skin was closed interrupted 3-0 Monocryl suture. Dermabond dressing was applied. Patient was sent to recovery in stable condition.
[2024-07-04 10:37] VITALS: TEMP 97.2
[2024-07-04] MEDS: HYDROmorphone 0.5 MG/0.5 ML SYRINGE IVP PRN (11:17)
[2024-07-04 14:20] VITALS: BP 111/73; PULSE 70; RESP 16
== END 2024-07-04 15:21 | disposition home or self-care (01) ==
LOC: OR 07:09
PROVIDERS: ATTEND Surgery
DX: K40.90 Unilateral inguinal hernia, without obstruction or gangrene, not specified as recurrent
CPT/HCPCS: 49650; 64999; 88304; S2900

== ENCOUNTER 2024-11-28 08:13 | Inpatient (IN) | payer MEDICARE ==
--- NOTE | 2024-11-28 08:44 | ED ---
General Adult HPI - General Chief complaint: Fall Stated complaint: Fall Time Seen by Provider: 11/28/24 08:15 Source: patient, EMS, RN notes reviewed Mode of arrival: EMS Limitations: no limitations - History of Present Illness Initial comments: Patient is an 84-year-old male present to the emergency department with concerns for being found on the ground. Patient states he does remember waking up this morning however does not recall how he got on the ground. Patient denies any trauma. No injury or pain. Patient states he feels normal at this time. Patient unclear last time he had a seizure. Patient does not feel confused or fatigued or achy. Patient did not bite his tongue or urinate on himself. No chest pain or dyspnea. No abdominal or back pain. No headache or weakness or confusion. - Related Data Home Medications Medication Instructions Recorded Confirmed Aspirin EC [Ecotrin Low Dose] 81 mg PO DAILY@1200 06/07/24 11/28/24 Divalproex Sodium [Divalproex 250 mg PO DAILY 06/07/24 11/28/24 Sodium ER] Nystatin 100,000 Unit/gm Powd 1 applic TOPICAL BID 06/07/24 11/28/24 [Mycostatin Powder] amLODIPine [Norvasc] 5 mg PO DAILY@1200 06/07/24 11/28/24 levETIRAcetam [Keppra] 1,000 mg PO Q12HR 06/07/24 11/28/24 Divalproex ER [Depakote ER] 500 mg PO HS 06/28/24 11/28/24 Donepezil [Aricept] 10 mg PO DAILY 06/28/24 11/28/24 Tamsulosin [Flomax] 0.4 mg PO PC-BID 11/28/24 11/28/24 Allergies Allergy/AdvReac Type Severity Reaction Status Date / Time No Known Allergies Allergy Verified 11/28/24 09:50 Review of Systems ROS Statement: Those systems with pertinent positive or pertinent negative responses have been documented in the HPI. ROS Other: All systems not noted in ROS Statement are negative. Constitutional: Denies: fever Eyes: Denies: eye pain ENT: Denies: ear pain Respiratory: Denies: dyspnea Cardiovascular: Denies: chest pain Endocrine: Denies: fatigue Gastrointestinal: Denies: abdominal pain Musculoskeletal: Denies: back pain Neurological: Reports: as per HPI. Denies: headache, weakness Past Medical History Past Medical History: Hypertension, Prostate Disorder History of Any Multi-Drug Resistant Organisms: None Reported Past Surgical History: Unable to Obtain Past Psychological History: No Psychological Hx Reported Smoking Status: Never smoker Past Alcohol Use History: None Reported Past Drug Use History: None Reported General Exam Limitations: no limitations General appearance: alert, in no apparent distress Head exam: Present: atraumatic, normocephalic Eye exam: Present: normal appearance, PERRL, EOMI ENT exam: Present: mucous membranes dry Neck exam: Present: normal inspection. Absent: tenderness Respiratory exam: Present: normal lung sounds bilaterally Cardiovascular Exam: Present: regular rate, normal rhythm, normal heart sounds Expanded Peripheral pulses: 2+: Radial (R), Radial (L), Posterior Tibialis (R), Posterior Tibialis (L) GI/Abdominal exam: Present: soft. Absent: tenderness Extremities exam: Present: normal inspection. Absent: pedal edema, calf tenderness Neurological exam: Present: alert, oriented X3. Absent: motor sensory deficit Expanded Neurological exam: Present: protecting the airway Patient oriented to: Present: person, place, time Speech: Present: fluid speech Cranial nerves: EOM's Intact: Normal, Facial Palsy with Forehead Movement: Abnormal Left (Forehead movement is normal) Motor strength exam: RUE: 5, LUE: 5, RLE: 5, LLE: 5 Eye Response: (4) open spontaneously Motor Response: (6) obeys commands Verbal Response: (5) oriented Psychiatric exam: Present: normal affect, normal mood Skin exam: Present: normal color Course Vital Signs 11/28/24 11/28/24 08:20 09:23 Temperature 98.1 F Pulse Rate 79 80 Respiratory 16 18 Rate Blood Pressure 136/78 136/76 O2 Sat by Pulse 92 L 97 Oximetry EKG Findings - EKG Results: EKG: interpreted by ERMD (Frequent PVCs), sinus rhythm, normal axis, normal QRS, normal ST/T Medical Decision Making - Medical Decision Making On exam there does appear to be mild left facial weakness. Patient last known well is unclear and therefore is not considered candidate for tenecteplase. Risks felt to outweigh the benefits. Was pt. sent in by a medical professional or institution (, PA, SUBSTATION OPERATOR TRANSFORMING, urgent care, hospital, or snf...) When possible be specific @ -Patient sent from snf Did you speak to anyone other than the patient for history (EMS, parent, family, police, friend...)? What history was obtained from this source @ -No Did you review nursing and triage notes (agree or disagree)? Why? @ -I reviewed and agree with nursing and triage notes Were old charts reviewed (outside hosp., previous admission, EMS record, old EKG, old radiological studies, urgent care reports/EKG's, snf records)? Report findings @ -No old charts were reviewed Differential Diagnosis (chest pain, altered mental status, abdominal pain women, abdominal pain men, vaginal bleeding, weakness, fever, dyspnea, syncope, headache, dizziness, GI bleed, back pain, seizure, CVA, palpatations, mental health, musculoskeletal)? @ -Differential Syncope: Valvular disease, hypertrophic cardiomyopathy, pulmonary embolism, tamponade, tachycardia, bradycardia, IL, hypovolemia, hemorrhage, dissection, anemia, intracranial hemorrhage, seizure, hypoglycemia, carbon monoxide poisoning, this is not meant to be an all-inclusive list. EKG interpreted by me (3pts min.). @ -As above X-rays interpreted by me (1pt min.). @ -Chest x-ray shows no acute process CT interpreted by me (1pt min.). @ -CT scan of brain and cervical spine without acute abnormality U/S interpreted by me (1pt. min.). @ -None done What testing was considered but not performed or refused? (CT, X-rays, U/S, labs)? Why? @ -None What meds were considered but not given or refused? Why? @ -None Did you discuss the management of the patient with other professionals (professionals i.e. , PA, SUBSTATION OPERATOR TRANSFORMING, lab, RT, psych nurse, director social welfare, admiralty lawyer, teacher, fire officer, case specialist)? Give summary @ -Case discussed with Dr. Butts who will admit covering Dr. Solis Was smoking cessation discussed for >3mins.? @ -No Was critical care preformed (if so, how long)? @ -No Were there social determinants of health that impacted care today? How? (Homelessness, low income, unemployed, alcoholism, drug addiction, tra nsportation, low edu. Level, literacy, decrease access to med. care, [facility], rehab)? @ -No Was there de-escalation of care discussed even if they declined (Discuss DNR or withdrawal of care, Hospice)? DNR status @ -No What co-morbidities impacted this encounter? (DM, HTN, Smoking, COPD, CAD, Cancer, CVA, ARF, Chemo, Hep., AIDS, mental health diagnosis, sleep apnea, morbid obesity)? @ -History of seizure disorder Was patient admitted / discharged? Hospital course, mention meds given and route, prescriptions, significant lab abnormalities, going to OR and other pertinent info. @ -Patient presents found on the floor. Unclear if patient could have had seizure or syncope. Patient has no complaints at this time. Troponin is slightly elevated. Patient will be admitted with consults with both cardiology and neurology. Patient reevaluated. Patient and family updated. Undiagnosed new problem with uncertain prognosis? @ -No Drug Therapy requiring intensive monitoring for toxicity (Heparin, Nitro, Insulin, Cardizem)? @ -No Were any procedures done? @ -No Diagnosis/symptom? @ -Syncope versus seizure Acute, or Chronic, or Acute on Chronic? @ -Acute Uncomplicated (without systemic symptoms) or Complicated (systemic symptoms)? @ -Default Side effects of treatment? @ -No Exacerbation, Progression, or Severe Exacerbation? @ -No Poses a threat to life or bodily function? How? (Chest pain, USA, IL, pneumonia, PE, COPD, DKA, ARF, appy, cholecystitis, CVA, Diverticulitis, Homicidal, Suicidal, threat to staff... and all critical care pts) @ -Threat to neurological or cardiac function - Lab Data Result diagrams: 11/28/24 08:42 11/28/24 08:42 Lab Results 11/28/24 11/28/24 11/28/24 Range/Units 08:42 08:42 08:42 WBC 6.9 (3.8-10.6) k/uL RBC 4.93 (4.30-5.90) m/uL Hgb 14.5 (13.0-17.5) gm/dL Hct 43.2 (39.0-53.0) % MCV 87.6 (80.0-100.0) fL MCH 29.5 (25.0-35.0) pg MCHC 33.6 (31.0-37.0) g/dL RDW 13.4 (11.5-15.5) % Plt Count 122 L (150-450) k/uL MPV 7.8 Neutrophils % 82 % Lymphocytes % 8 % Monocytes % 8 % Eosinophils % 0 % Basophils % 0 % Neutrophils # 5.6 (1.3-7.7) k/uL Lymphocytes # 0.5 L (1.0-4.8) k/uL Monocytes # 0.6 (0-1.0) k/uL Eosinophils # 0.0 (0-0.7) k/uL Basophils # 0.0 (0-0.2) k/uL PT 11.9 (10.0-12.5) sec INR 1.1 (<1.2) APTT 24.8 (22.0-30.0) sec Sodium 139 (137-145) mmol/L Potassium 3.3 L (3.5-5.1) mmol/L Chloride 108 H (98-107) mmol/L Carbon Dioxide 23 (22-30) mmol/L Anion Gap 8 mmol/L BUN 21 H (9-20) mg/dL Creatinine 0.91 (0.66-1.25) mg/dL Est GFR (CKD-EPI)AfAm 90 (>60 ml/min/1.73 sqM) Est GFR (CKD-EPI)NonAf 78 (>60 ml/min/1.73 sqM) Glucose 84 (74-99) mg/dL Calcium 8.2 L (8.4-10.2) mg/dL Magnesium 1.9 (1.6-2.3) mg/dL Total Bilirubin 0.9 (0.2-1.3) mg/dL AST 185 H (17-59) U/L ALT 90 H (4-49) U/L Alkaline Phosphatase 52 (38-126) U/L Troponin I (0.000-0.034) ng/mL Total Protein 5.8 L (6.3-8.2) g/dL Albumin 3.3 L (3.5-5.0) g/dL Valproic Acid 31.1 ug/mL 11/28/24 Range/Units 08:42 WBC (3.8-10.6) k/uL RBC (4.30-5.90) m/uL Hgb (13.0-17.5) gm/dL Hct (39.0-53.0) % MCV (80.0-100.0) fL MCH (25.0-35.0) pg MCHC (31.0-37.0) g/dL RDW (11.5-15.5) % Plt Count (150-450) k/uL MPV Neutrophils % % Lymphocytes % % Monocytes % % Eosinophils % % Basophils % % Neutrophils # (1.3-7.7) k/uL Lymphocytes # (1.0-4.8) k/uL Monocytes # (0-1.0) k/uL Eosinophils # (0-0.7) k/uL Basophils # (0-0.2) k/uL PT (10.0-12.5) sec INR (<1.2) APTT (22.0-30.0) sec Sodium (137-145) mmol/L Potassium (3.5-5.1) mmol/L Chloride (98-107) mmol/L Carbon Dioxide (22-30) mmol/L Anion Gap mmol/L BUN (9-20) mg/dL Creatinine (0.66-1.25) mg/dL Est GFR (CKD-EPI)AfAm (>60 ml/min/1.73 sqM) Est GFR (CKD-EPI)NonAf (>60 ml/min/1.73 sqM) Glucose (74-99) mg/dL Calcium (8.4-10.2) mg/dL Magnesium (1.6-2.3) mg/dL Total Bilirubin (0.2-1.3) mg/dL AST (17-59) U/L ALT (4-49) U/L Alkaline Phosphatase (38-126) U/L Troponin I 0.072 H* (0.000-0.034) ng/mL Total Protein (6.3-8.2) g/dL Albumin (3.5-5.0) g/dL Valproic Acid ug/mL Disposition Clinical Impression: Syncope Disposition: ADMITTED IP TO THIS [facility] Is patient prescribed a controlled substance at d/c from ED?: No Referrals: Willian Solis MD [Primary Care Provider] - 1-2 days Time of Disposition: 10:30
[2024-11-28 09:18] LABS: Basophils % (A) 0 %; Eosinophils % (A) 0 %; HCT 43.2 % (39.0-53.0); HGB 14.5 gm/dL (13.0-17.5); Lymphocytes # (A) 0.5 k/uL (1.0-4.8); Lymphocytes % (A) 8 %; MCH 29.5 pg (25.0-35.0); MCHC 33.6 g/dL (31.0-37.0); MCV 87.6 fL (80.0-100.0); Mean Platelet Volume 7.8; Monocytes # (A) 0.6 k/uL (0-1.0); Monocytes % (A) 8 %; Neutrophils # (A) 5.6 k/uL (1.3-7.7); Neutrophils % (A) 82 %; Platelet Count 122 k/uL (150-450); RBC 4.93 m/uL (4.30-5.90); RDW 13.4 % (11.5-15.5); WBC 6.9 k/uL (3.8-10.6)
[2024-11-28 09:41] LABS: INR 1.1 (<1.2); Partial Thromboplastin Time 24.8 sec (22.0-30.0); Prothrombin Time 11.9 sec (10.0-12.5)
--- NOTE | 2024-11-28 09:47 | CT ---
EXAMINATION TYPE: CT brain cspine wo con DATE OF EXAM: 11/28/2024 9:19 AM COMPARISON: None. CLINICAL INDICATION: Male, 84 years old with history of syncope, Fall, possible seizure, pain TECHNIQUE: CT of the brain is performed utilizing 3 mm thick sections through the posterior fossa and 3 mm thick sections through the remaining calvarium. Study is performed within 24 hours of arrival to the hospital. Motion artifact causes some limitation. Contrast used: mL of , (none if empty) CT DLP: 1577.5 mGycm, Automated exposure control for dose reduction was used. FINDINGS: No abnormal hyperdensity is present to suggest an acute intracranial hemorrhage. No mass lesion is evident. No acute infarcts are evident. Some periventricular white matter hypodensity is present, likely on t he basis of chronic white matter ischemic changes. Ventricles and sulci are prominent for the patient age. There may be some soft tissue swelling over the right posterior parietal vertex. No underlying fractu res evident. Paranasal sinuses and mastoid air cells within the [id number] are clear. IMPRESSIONS: 1. No acute intracranial process. Follow-up MRI can be performed as clinically indicated. 2. Atrophy with chronic appearing periventricular white matter ischemic type changes. CT cervical spine. COMPARISON: None TECHNIQUE: CT of the cervical spine is performed in the axial plane at 2 mm thick sections. Reconstr ucted images in the coronal, and sagittal plane are reviewed on the computer. FINDINGS: No acute fractures are evident. Vertebral body alignment is normal. There is narrowing of the disc height at C5-6. Mild posterior endplate spurring is present. Small kaley tral spur is present without spinal canal stenosis C5-6. Vertebral body heights are preserved. No spinal canal stenosis is evident. Uncovertebral joint hypertrophy on the right at C3-4 has moderate to severe foraminal narrowing. Bila teral foraminal narrowing is present C5-6, greater on the left. IMPRESSION: 1. No acute osseous abnormality cervical spine. 2. Mild degenerative disc changes C5-6. 3. Foraminal narrowing discussed above, greatest on the right at C3-4. [facility], , 11/28/2024 9:45 AM
--- NOTE | 2024-11-28 10:01 | XR ---
EXAMINATION TYPE: XR chest 2V DATE OF EXAM: 11/28/2024 9:19 AM COMPARISON: 06/07/2024 CLINICAL INDICATION: Male, 84 years old with history of syncope, TECHNIQUE: XR chest 2V view(s) obtained. FINDINGS: The heart size is normal. The pulmonary vasculature is normal. The lungs are clear. IMPRESSION: 1. No acute pulmonary process. [facility], , 11/28/2024 9:59 AM
[2024-11-28 10:06] LABS: ALT 90 U/L (4-49); AST 185 U/L (17-59); African American GFR (CKD) 90 (>60 ml/min/1.73 sqM); Albumin 3.3 g/dL (3.5-5.0); Alkaline Phosphatase 52 U/L (38-126); Anion Gap 8 mmol/L; Blood Urea Nitrogen 21 mg/dL (9-20); Calcium 8.2 mg/dL (8.4-10.2); Carbon Dioxide 23 mmol/L (22-30); Chloride 108 mmol/L (98-107); Glucose 84 mg/dL (74-99); Magnesium 1.9 mg/dL (1.6-2.3); Non-African American GFR(CKD) 78 (>60 ml/min/1.73 sqM); Potassium 3.3 mmol/L (3.5-5.1); Sodium 139 mmol/L (137-145); Total Bilirubin 0.9 mg/dL (0.2-1.3); Total Protein 5.8 g/dL (6.3-8.2)
[2024-11-28 10:11] LABS: Valproic Acid (Depakene) 31.1 ug/mL
[2024-11-28] MEDS ORDERED: NALOXONE 0.4 MG/ML 1 ML VIAL IV PRN (10:30)
[2024-11-28] MEDS: ASPIRIN 81 MG PO STA (10:41)
[2024-11-28] MEDS: SODIUM CHLORIDE 0.9% 1,000 ML IV SCH (10:42)
[2024-11-28 12:12] LABS: Creatine Kinase 13667 U/L (55-170)
[2024-11-28] MEDS: amLODIPine 5 MG TAB PO SCH (12:23)
[2024-11-28] MEDS: POTASSIUM CHLORIDE ER 20 MEQ TAB.ER PO STA (12:23)
--- NOTE | 2024-11-28 14:15 | P.CRDCN ---
History of Present Illness Consult date: 11/28/24 Reason for Consult (text): Syncope versus seizure History of present illness: This is an 84-year-old male patient with past medical history of hypertension, dementia, seizure disorder. We have been asked to evaluate the patient for syncope versus seizure. Patient's sister Eve is at the bedside and she states that she saw the patient last evening at around 4:00 and then when staff went into his room at [facility] at 7:30 in the morning, they found him on the ground. Patient does not remember anything that happened. He does not recall having chest pain, shortness of breath, palpitations, lightheadedness or dizziness. He denies any nausea or vomiting. He apparently did have some diarrhea yesterday and had an accident in his bed and was feeling tired most of the day. Patient sister states that he has been having seizures for the past 3 years where he has major blacking out episodes and feels tired afterwards. When patient is asked why he is here he states that he is here because he had a seizure but this episode was not witnessed. Blood pressure 114/71, heart rate 84, pulse ox 96% on 2 L nasal cannula. Patient is seen today in the emergency center waiting for bed on the observation unit. -EKG: Sinus rhythm with frequent PVCs. -Chest x-ray: No acute process. -CT brain and cervical spine: No acute intracranial process. Chronic white matter ischemic changes. No acute osseous abnormality of the cervical spine. Mild degenerative disc disease. Foraminal narrowing. -Laboratory studies: WBC 6.9, hemoglobin 14.5, platelet count 122. Sodium 139, potassium 3.3, BUN 21 creatinine 0.91. Troponin 0.072, AST 185, ALT 90. -Home cardiac medications: Amlodipine 5 mg daily at noon, aspirin 81 mg daily at noon. Review Of Systems: At the time of my exam: CONSTITUTIONAL: Denies fever or chills. HEENT: Denies blurred vision, vision changes, or eye pain. Denies hemoptysis CARDIOVASCULAR: Denies chest pain. Denies orthopnea. Denies PND. Denies palpitations RESPIRATORY: Denies shortness of breath. GASTROINTESTINAL: Denies abdominal pain. Denies nausea or vomiting. HEMATOLOGIC: Denies bleeding disorders. GENITOURINARY: Denies any blood in urine. SKIN: Denies puritis. Denies rash. Physical examination: Gen: This is an 84-year-old male in no acute distress VS: reviewed HEENT: Head is atraumatic, normocephalic. Pupils equal, round. Sclerae is anicteric. NECK: Supple. No JVD. LUNGS: Clear to auscultation. No wheezes or rhonchi. No intercostal retractions. HEART: Regular rate and rhythm. No murmur. ABDOMEN: Soft No tenderness. EXTREMITIES: No pedal edema. No calf tenderness. NEUROLOGICAL: Patient is awake, alert and oriented x2. Assessment: Seizure versus syncope. Seizure is most likely due to patient's history Diarrhea Thrombocytopenia Hypertension Dementia Seizure disorder Plan: Resume patient's home cardiac medications Obtain 2-D echocardiogram and Doppler study to assess cardiac structure and function Continue telemetry monitoring Further recommendations to follow based upon clinical course Thank you kindly for this consultation. Nurse practitioner note has been reviewed, I agree with documented findings and plan of care. Patient was seen and examined. Past Medical History Past Medical History: Hypertension, Prostate Disorder Additional Past Medical History / Comment(s): dementia History of Any Multi-Drug Resistant Organisms: None Reported Past Surgical History: Unable to Obtain Past Psychological History: No Psychological Hx Reported Smoking Status: Never smoker Past Alcohol Use History: None Reported Past Drug Use History: None Reported Medications and Allergies Home Medications Medication Instructions Recorded Confirmed Type Aspirin EC [Ecotrin Low Dose] 81 mg PO DAILY@1200 06/07/24 11/28/24 History Divalproex Sodium [Divalproex 250 mg PO DAILY 06/07/24 11/28/24 History Sodium ER] Nystatin 100,000 Unit/gm Powd 1 applic TOPICAL BID 06/07/24 11/28/24 History [Mycostatin Powder] amLODIPine [Norvasc] 5 mg PO DAILY@1200 06/07/24 11/28/24 History levETIRAcetam [Keppra] 1,000 mg PO Q12HR 06/07/24 11/28/24 History Divalproex ER [Depakote ER] 500 mg PO HS 06/28/24 11/28/24 History Donepezil [Aricept] 10 mg PO DAILY 06/28/24 11/28/24 History Tamsulosin [Flomax] 0.4 mg PO PC-BID 11/28/24 11/28/24 History Allergies Allergy/AdvReac Type Severity Reaction Status Date / Time No Known Allergies Allergy Verified 11/28/24 09:50 Physical Exam Vitals: Vital Signs Temp Pulse Resp BP Pulse Ox 11/28/24 10:30 84 18 114/71 96 11/28/24 09:23 80 18 136/76 97 11/28/24 08:20 98.1 F 79 16 136/78 92 L Intake and Output 11/27/24 11/28/24 11/28/24 22:59 06:59 14:59 Other: Weight 99.79 kg Results 11/28/24 08:42 11/28/24 08:42 Cardiac Enzymes 11/28/24 11/28/24 Range/Units 08:42 08:42 AST 185 H (17-59) U/L Troponin I 0.072 H* (0.000-0.034) ng/mL Coagulation 11/28/24 Range/Units 08:42 PT 11.9 (10.0-12.5) sec APTT 24.8 (22.0-30.0) sec CBC 11/28/24 Range/Units 08:42 WBC 6.9 (3.8-10.6) k/uL RBC 4.93 (4.30-5.90) m/uL Hgb 14.5 (13.0-17.5) gm/dL Hct 43.2 (39.0-53.0) % Plt Count 122 L (150-450) k/uL Comprehensive Metabolic Panel 11/28/24 Range/Units 08:42 Sodium 139 (137-145) mmol/L Potassium 3.3 L (3.5-5.1) mmol/L Chloride 108 H (98-107) mmol/L Carbon Dioxide 23 (22-30) mmol/L BUN 21 H (9-20) mg/dL Creatinine 0.91 (0.66-1.25) mg/dL Glucose 84 (74-99) mg/dL Calcium 8.2 L (8.4-10.2) mg/dL AST 185 H (17-59) U/L ALT 90 H (4-49) U/L Alkaline Phosphatase 52 (38-126) U/L Total Protein 5.8 L (6.3-8.2) g/dL Albumin 3.3 L (3.5-5.0) g/dL Current Medications Generic Name Dose Route Start Last Admin Trade Name Freq PRN Reason Stop Dose Admin Amlodipine Besylate 5 mg 11/28/24 12:00 Amlodipine 5 Mg Tab PO DAILY@1200 BÁRBARA Aspirin 81 mg 11/29/24 12:00 Aspirin 81 Mg PO DAILY@1200 BÁRBARA Divalproex Sodium 250 mg 11/29/24 09:00 Divalproex Er 250 Mg Tab.Er.24h PO DAILY BÁRBARA Divalproex Sodium 500 mg 11/28/24 21:00 Divalproex Er 500 Mg Tab.Er.24h PO HS BÁRBARA Donepezil HCl 10 mg 11/29/24 09:00 Donepezil 10 Mg Tab PO DAILY [facility] Sodium Chloride 1,000 mls @ 75 mls/hr 11/28/24 10:30 11/28/24 10:42 Saline 0.9% IV 75 mls/hr .[id number] BÁRBARA Administration Levetiracetam 1,000 mg 11/28/24 21:00 Levetiracetam 500 Mg Tab PO Q12HR BÁRBARA Naloxone HCl 0.2 mg 11/28/24 10:30 Naloxone 0.4 Mg/Ml 1 Ml Vial IV Q2M PRN Opioid Reversal Tamsulosin HCl 0.4 mg 11/28/24 18:30 Tamsulosin 0.4 Mg Cap.Er.24h PO PC-BID BÁRBARA Intake and Output 11/27/24 11/28/24 11/28/24 22:59 06:59 14:59 Other: Weight 99.79 kg Patient Weight 11/29/24 06:59 Weight 99.79 kg 11/28/24 08:42 11/28/24 08:42
--- NOTE | 2024-11-28 14:41 | P.HPIM ---
History of Present Illness 84-year-old male came in with a questionable syncope versus seizure. Patient was admitted for evaluation was found found on the ground patient did not have any witnessed seizure but he does have seizure history on Keppra patient had few similar episodes where he blacks out followed by tiredness afterwards patient denied any loss of bowel or bladder continence or tongue biting at this time denied any chest pain shortness of breath palpitations. Patient had diarrhea yesterday. Lactic acid was not obtained but patient's anion gap was within normal limits CT of the brain and cervical spine did not show any significant abnormality chest x-ray no significant abnormality patient has elevated troponin to 0.060 because of which cardiology was consulted they evaluated the patient patient does not have any type I ND may have type II myocardial infarction AST and ALT are elevated to 185 and 90 respectively. Patient has highly elevated CK of 12,000. I do not have any urine available at this time valproic acid level was obtained which is 31 patient is also on valproic acid along with Keppra. 31 years below the therapeutic level of 50 REVIEW OF SYSTEMS: All other systems are negative except those mentioned in the HPI PHYSICAL EXAMINATION: GENERAL: The patient is alert and oriented x3, not in any acute distress. Well developed, well nourished. HEENT: Pupils are round and equally reacting to light. EOMI. No scleral icterus. No conjunctival pallor. Normocephalic, atraumatic. No pharyngeal erythema. No thyromegaly. CARDIOVASCULAR: S1 and S2 present. No murmurs, rubs, or gallops. PULMONARY: Chest is clear to auscultation, no wheezing or crackles. ABDOMEN: Soft, nontender, nondistended, normoactive bowel sounds. No palpable organomegaly. MUSCULOSKELETAL: No joint swelling or deformity. EXTREMITIES: No cyanosis, clubbing, or pedal edema. NEUROLOGICAL: Gross neurological examination did not reveal any focal deficits. SKIN: No rashes. Assessment and plan -Possibility of seizure neurology was consulted patient will need EEG titration of Keppra and valproic acid as per neurology -Elevated CK possible rhabdomyolysis will obtain urine myoglobin, urine analysis patient's IV fluids will be increased to 100 cc/h monitor CK and kidney function -Troponin elevation probably type II ND, cardiology evaluated the patient, echocardiogram will be obtained -Thrombocytopenia -Hypokalemia potassium will be supplemented -Mild transaminitis will repeat liver enzymes again tomorrow can be secondary to valproic acid -History of dementia DVT prophylaxis: Lovenox Past Medical History Past Medical History: Hypertension, Prostate Disorder Additional Past Medical History / Comment(s): dementia History of Any Multi-Drug Resistant Organisms: None Reported Past Surgical History: Unable to Obtain Past Psychological History: No Psychological Hx Reported Smoking Status: Never smoker Past Alcohol Use History: None Reported Past Drug Use History: None Reported Medications and Allergies Home Medications Medication Instructions Recorded Confirmed Type Aspirin EC [Ecotrin Low Dose] 81 mg PO DAILY@1200 06/07/24 11/28/24 History Divalproex Sodium [Divalproex 250 mg PO DAILY 06/07/24 11/28/24 History Sodium ER] Nystatin 100,000 Unit/gm Powd 1 applic TOPICAL BID 06/07/24 11/28/24 History [Mycostatin Powder] amLODIPine [Norvasc] 5 mg PO DAILY@1200 06/07/24 11/28/24 History levETIRAcetam [Keppra] 1,000 mg PO Q12HR 06/07/24 11/28/24 History Divalproex ER [Depakote ER] 500 mg PO HS 06/28/24 11/28/24 History Donepezil [Aricept] 10 mg PO DAILY 06/28/24 11/28/24 History Tamsulosin [Flomax] 0.4 mg PO PC-BID 11/28/24 11/28/24 History Allergies Allergy/AdvReac Type Severity Reaction Status Date / Time No Known Allergies Allergy Verified 11/28/24 09:50 Physical Exam Vitals: Vital Signs Temp Pulse Resp BP Pulse Ox 11/28/24 12:00 81 18 130/80 96 11/28/24 10:30 84 18 114/71 96 11/28/24 09:23 80 18 136/76 97 11/28/24 08:20 98.1 F 79 16 136/78 92 L Intake and Output 11/27/24 11/28/24 11/28/24 22:59 06:59 14:59 Other: Weight 99.79 kg Results CBC & Chem 7: 11/28/24 08:42 11/28/24 08:42 Labs: Abnormal Lab Results - Last 24 Hours (Table) 11/28/24 11/28/24 11/28/24 Range/Units 08:42 08:42 08:42 Plt Count 122 L (150-450) k/uL Lymphocytes # 0.5 L (1.0-4.8) k/uL Potassium 3.3 L (3.5-5.1) mmol/L Chloride 108 H (98-107) mmol/L BUN 21 H (9-20) mg/dL Calcium 8.2 L (8.4-10.2) mg/dL AST 185 H (17-59) U/L ALT 90 H (4-49) U/L Creatine Kinase 69761 H* (55-170) U/L Troponin I 0.072 H* (0.000-0.034) ng/mL Total Protein 5.8 L (6.3-8.2) g/dL Albumin 3.3 L (3.5-5.0) g/dL 11/28/24 Range/Units 11:56 Plt Count (150-450) k/uL Lymphocytes # (1.0-4.8) k/uL Potassium (3.5-5.1) mmol/L Chloride (98-107) mmol/L BUN (9-20) mg/dL Calcium (8.4-10.2) mg/dL AST (17-59) U/L ALT (4-49) U/L Creatine Kinase (55-170) U/L Troponin I 0.060 H* (0.000-0.034) ng/mL Total Protein (6.3-8.2) g/dL Albumin (3.5-5.0) g/dL
[2024-11-28] MEDS: TAMSULOSIN 0.4 MG CAP.ER.24H PO SCH (19:54)
[2024-11-28] MEDS: DIVALPROEX ER 500 MG TAB.ER.24H PO SCH (20:35)
[2024-11-28] MEDS: levETIRAcetam 500 MG TAB PO SCH (20:35)
[2024-11-29 06:25] LABS: HCT 43.8 % (39.0-53.0); HGB 14.6 gm/dL (13.0-17.5); MCH 29.3 pg (25.0-35.0); MCHC 33.4 g/dL (31.0-37.0); Platelet Count 105 k/uL (150-450); RBC 4.98 m/uL (4.30-5.90); RDW 13.4 % (11.5-15.5); WBC 6.4 k/uL (3.8-10.6)
[2024-11-29 06:41] LABS: ALT 114 U/L (4-49); AST 193 U/L (17-59); African American GFR (CKD) 29 (>60 ml/min/1.73 sqM); Albumin 3.1 g/dL (3.5-5.0); Alkaline Phosphatase 41 U/L (38-126); Anion Gap 11 mmol/L; Blood Urea Nitrogen 31 mg/dL (9-20); Calcium 8.2 mg/dL (8.4-10.2); Carbon Dioxide 20 mmol/L (22-30); Chloride 109 mmol/L (98-107); Glucose 97 mg/dL (74-99); Non-African American GFR(CKD) 25 (>60 ml/min/1.73 sqM); Sodium 140 mmol/L (137-145); Total Bilirubin 0.8 mg/dL (0.2-1.3); Total Protein 5.5 g/dL (6.3-8.2)
--- NOTE | 2024-11-29 07:59 | CA ---
Transthoracic Echo Report Name: Colby Calles Age: 84 Gender: M : 1940 Exam Date: 11/28/2024 17:35 Exam Location: [facility] Ht (in): 72 Wt (lb): 220 Ordering Physician: Kaila Monson Attending/Referring Phys: [id number], Ermias Teletypewriter Installer Elana Howard RDCS Procedure CPT: Indications: LVF, valvular abnormality, syncope Cardiac Hx: Technical Quality: Fair Contrast 1: Total Dose (mL): Contrast 2: Total Dose (mL): MEASUREMENTS (Male / Female) Normal Values 2D ECHO LV Diastolic Diameter PLAX 5.1 cm 4.2 - 5.9 / 3.9 - 5.3 cm LV Systolic Diameter PLAX 3.5 cm IVS Diastolic Thickness 1.4 cm 0.6 - 1.0 / 0.6 - 0.9 cm LVPW Diastolic Thickness 1.2 cm 0.6 - 1.0 / 0.6 - 0.9 cm LV Relative Wall Thickness 0.5 RV Internal Dim ED PLAX 3.6 cm LA Systolic Diameter LX 4.9 cm 3.0 - 4.0 / 2.7 - 3.8 cm M-MODE Aortic Root Diameter MM 3.7 cm DOPPLER AV Peak Velocity 114.2 cm/s AV Peak Gradient 5.2 mmHg MV Area PHT 3.2 cm??? Mitral E Point Velocity 67.9 cm/s Mitral A Point Velocity 107.4 cm/s Mitral E to A Ratio 0.6 MV Deceleration Time 236.5 ms TR Peak Velocity 277.8 cm/s TR Peak Gradient 30.9 mmHg Right Ventricular Systolic Press 35.9 mmHg FINDINGS Left Ventricle Left ventricular ejection fraction is estimated at 55-60 %. Left ventricular cavity size normal. Mildly increased septal wall thickness. No obvious regional wall motion abnormalities. Right Ventricle Mild right ventricular dilatation. Mild pulmonary hypertension. Right Atrium Normal right atrial size. No right atrial thrombus or mass seen. Left Atrium Moderately increased left atrial diameter. Mildly increased left atrial area. No left atrial thrombus or mass present. Mitral Valve Structurally normal mitral valve. Mild mitral regurgitation. Aortic Valve Thickened aortic valve without stenosis. Tricuspid Valve Structurally normal tricuspid valve. Mild tricuspid regurgitation. Pulmonic Valve Pulmonic valve not well visualized. No pulmonic regurgitation. Pericardium No pericardial effusion. Aorta Normal size aortic root and proximal ascending aorta. CONCLUSIONS Technically difficult study for interpretation Normal LV systolic function Poorly visualized intracardiac valves No pericardial effusion Normal aortic root and proximal ascending aorta Previewed by: Dr. Irving Martinez MD (Electronically Signed) Final Date: 29 November 2024 07:58
[2024-11-29] MEDS: ENOXAPARIN 40 MG/0.4 ML SYRINGE SQ SCH (09:29)
[2024-11-29] MEDS: DIVALPROEX ER 250 MG TAB.ER.24H PO SCH (09:29)
[2024-11-29] MEDS: DONEPEZIL 10 MG TAB PO SCH (09:29)
--- NOTE | 2024-11-29 10:23 | P.PN ---
Subjective HISTORY OF PRESENT ILLNESS: This is an 84-year-old male patient with past medical history of hypertension, dementia, seizure disorder. We have been asked to evaluate the patient for syncope versus seizure. Patient's sister Eve is at the bedside and she states that she saw the patient last evening at around 4:00 and then when staff went into his room at [facility] at 7:30 in the morning, they found him on the ground. Patient does not remember anything that happened. He does not recall having chest pain, shortness of breath, palpitations, lightheadedness or dizziness. He denies any nausea or vomiting. He apparently did have some d iarrhea yesterday and had an accident in his bed and was feeling tired most of the day. Patient sister states that he has been having seizures for the past 3 years where he has major blacking out episodes and feels tired afterwards. When patient is asked why he is here he states that he is here because he had a seizure but this episode was not witnessed. Blood pressure 114/71, heart rate 84, pulse ox 96% on 2 L nasal cannula. Patient is seen today in the emergency center waiting for bed on the observation unit. -EKG: Sinus rhythm with frequent PVCs. -Chest x-ray: No acute process. -CT brain and cervical spine: No acute intracranial process. Chronic white matter ischemic changes. No acute osseous abnormality of the cervical spine. Mild degenerative disc disease. Foraminal narrowing. -Laboratory studies: WBC 6.9, hemoglobin 14.5, platelet count 122. Sodium 139, potassium 3.3, BUN 21 creatinine 0.91. Troponin 0.072, AST 185, ALT 90. -Home cardiac medications: Amlodipine 5 mg daily at noon, aspirin 81 mg daily at noon. 11/29/2024 Patient examined this morning at the bedside in the emergency room. Patient currently denies any chest pain or pressure. He denies any shortness of breath. Creatinine today worsened at 2.34. Patient has been receiving IV fluids at 100 cc an hour. Vital signs are stable. Echocardiogram completed revealing ejection fraction 55 to 60%, no obvious regional wall motion abnormalities, mild pulmonary hypertension, mild MR, mild TR, no pericardial effusion. Per nursing, patient did have issues with urinary retention overnight and required insertion of indwelling urinary catheter PHYSICAL EXAM: VITAL SIGNS: Reviewed. GENERAL: Well-developed in no acute distress. NECK: Supple. No JVD or thyromegaly LUNGS: Respirations even and unlabored. Lungs essentially clear to auscultation bilaterally. HEART: Regular rate and rhythm. S1 and S2 heard. EXTREMITIES: Normal range of motion. No clubbing or cyanosis. Peripheral pulses intact. No lower extremity edema ASSESSMENT: Seizure versus syncope. Seizure is most likely due to patient's history Elevated creatinine kinase, suspected rhabdomyolysis Acute renal failure Diarrhea Thrombocytopenia Hypertension Dementia Seizure disorder Mild pulmonary hypertension Urinary retention requiring indwelling urinary catheter insertion PLAN: 2D echo obtained and reviewed Continue telemetry monitoring Continue current cardiac medications Continue IV fluids Repeat BMP and creatinine kinase in a.m. Further recommendations pending patient course Nurse practitioner note has been reviewed by physician. Signing provider agrees with the documented findings, assessment, and plan of care documented by SEWING TEACHER as a scribe. Objective - Vital Signs Vital signs: Vital Signs Temp 98.2 F 11/29/24 06:21 Pulse 68 11/29/24 07:47 Resp 18 11/29/24 07:47 BP 134/83 11/29/24 06:21 Pulse Ox 95 11/29/24 06:21 FiO2 Intake & Output 11/28/24 11/29/24 11/29/24 18:59 06:59 18:59 Output Total 1000 Balance -1000 Weight 99.79 kg Output: Urine 1000 Uretheral (Cabrera) 1000 Other: Voiding Method Indwelling Catheter - Labs CBC & Chem 7: 11/29/24 06:06 11/29/24 06:06 Labs: Abnormal Lab Results - Last 24 Hours (Table) 11/28/24 11/28/24 11/28/24 Range/Units 08:42 08:42 08:42 Plt Count 122 L (150-450) k/uL Lymphocytes # 0.5 L (1.0-4.8) k/uL Potassium 3.3 L (3.5-5.1) mmol/L Chloride 108 H (98-107) mmol/L Carbon Dioxide (22-30) mmol/L BUN 21 H (9-20) mg/dL Creatinine (0.66-1.25) mg/dL Calcium 8.2 L (8.4-10.2) mg/dL AST 185 H (17-59) U/L ALT 90 H (4-49) U/L Creatine Kinase [id number] H* (55-170) U/L Troponin I 0.072 H* (0.000-0.034) ng/mL Total Protein 5.8 L (6.3-8.2) g/dL Albumin 3.3 L (3.5-5.0) g/dL 11/28/24 11/28/24 11/29/24 Range/Units 11:56 14:41 06:06 Plt Count 105 L (150-450) k/uL Lymphocytes # (1.0-4.8) k/uL Potassium (3.5-5.1) mmol/L Chloride (98-107) mmol/L Carbon Dioxide (22-30) mmol/L BUN (9-20) mg/dL Creatinine (0.66-1.25) mg/dL Calcium (8.4-10.2) mg/dL AST (17-59) U/L ALT (4-49) U/L Creatine Kinase (55-170) U/L Troponin I 0.060 H* 0.045 H* (0.000-0.034) ng/mL Total Protein (6.3-8.2) g/dL Albumin (3.5-5.0) g/dL 11/29/24 Range/Units 06:06 Plt Count (150-450) k/uL Lymphocytes # (1.0-4.8) k/uL Potassium (3.5-5.1) mmol/L Chloride 109 H (98-107) mmol/L Carbon Dioxide 20 L (22-30) mmol/L BUN 31 H (9-20) mg/dL Creatinine 2.34 H (0.66-1.25) mg/dL Calcium 8.2 L (8.4-10.2) mg/dL AST 193 H (17-59) U/L ALT 114 H (4-49) U/L Creatine Kinase (55-170) U/L Troponin I (0.000-0.034) ng/mL Total Protein 5.5 L (6.3-8.2) g/dL Albumin 3.1 L (3.5-5.0) g/dL
[2024-11-29] MEDS: ASPIRIN 81 MG PO SCH (11:51)
--- NOTE | 2024-11-29 20:40 | EEG ---
ELECTROENCEPHALOGRAM REPORT PREAMBLE: This is an 84-year-old male with breakthrough seizure. CURRENT MEDICATIONS: 1. Depakote. 2. Keppra. 3. Flomax. EEG FINDINGS: This is a 21-channel digital EEG recorded with video component, utilizing 10/20 international system with referential and bipolar montages. Background consists of moderately well-developed and regulated, predominantly low amplitude 5 to 6 hertz theta activity seen in bihemispheric region. Background does not seem to be clearly reactive to eye opening or closing. Photic driving response was not clearly seen. Some stage 2 sleep was seen with presence of sleep spindles. No focal or generalized epileptiform activity was seen. IMPRESSION: This is an abnormal EEG due to background slowing of mild to moderate degree. This is suggestive of generalized cerebral dysfunction as can be seen with various encephalopathy of metabolic, vascular, or degenerative etiology. Clinical correlation is recommended. No epileptiform activity was seen. MMODL / IJN: [id number] /
--- NOTE | 2024-11-30 05:51 | P.PN ---
Subjective Progress Note Date: 11/29/24 84-year-old male came in with a questionable syncope versus seizure. Patient was admitted for evaluation was found found on the ground patient did not have any witnessed seizure but he does have seizure history on Keppra patient had few similar episodes where he blacks out followed by tiredness afterwards patient denied any loss of bowel or bladder continence or tongue biting at this time denied any chest pain shortness of breath palpitations. Patient had diarrhea yesterday. Lactic acid was not obtained but patient's anion gap was within normal limits CT of the brain and cervical spine did not show any significant abnormality chest x-ray no significant abnormality patient has elevated troponin to 0.060 because of which cardiology was consulted they evaluated the patient patient does not have any type I [place] may have type II myocardial infarction AST and ALT are elevated to 185 and 90 respectively. Patient has highly elevated CK of 12,000. I do not have any urine available at this time valproic acid level was obtained which is 31 patient is also on valproic acid along with Keppra. 31 years below the therapeutic level of 50 11/29/2024 Patient is seen in follow-up this morning with cardiology following ordered 2D echo which is pending. Apparently per nursing staff patient had some retention overnight requiring indwelling Cabrera catheter and has had large volume output. Creatinine worsened up to 2.3 today likely secondary to retention. Will continue IV hydration and follow-up on repeat labs. Patient will need PT/OT therapy evaluation and at the bedside reports plans on returning to [facility] where he resides. Continue indwelling Cabrera catheter for now and will add Flomax. Patient does have history of enlarged prostate. No further seizure-like activity noted. Review of systems: Constitutional: No reports of fatigue, fever, or chills Cardiovascular: No reports of chest pain or palpitations Respiratory: No reports of shortness of breath or cough GI: No reports of nausea, vomiting, or diarrhea : No reports of dysuria, reports improved retention after Cabrera catheter placement Neurovascular: reports of weakness All medications have been reviewed PHYSICAL EXAMINATION: GENERAL: The patient is alert and oriented x 23, baseline. Well developed, well nourished. Elderly appearing HEENT: Pupils are round and equally reacting to light. EOMI. No scleral icterus. No conjunctival pallor. Normocephalic, atraumatic. No pharyngeal erythema. No thyromegaly. CARDIOVASCULAR: S1 and S2 muffled PULMONARY: Diminished breath sounds bilaterally otherwise chest is clear to auscultation, no wheezing or crackles. ABDOMEN: Soft, nontender, nondistended, normoactive bowel sounds. No palpable organomegaly. MUSCULOSKELETAL: No joint swelling or deformity. EXTREMITIES: No cyanosis, clubbing, or pedal edema. NEUROLOGICAL: Gross neurological examination did not reveal any focal deficits. Diffusely weak SKIN: No rashes. Pale Assessment: -Possibility of seizure, possible breakthrough seizure as patient does have history of seizure disorder. -Elevated CK, rhabdomyolysis, traumatic with fall and prolonged downtime -Troponin elevation, type II WA, per cardiology -Thrombocytopenia -Hypokalemia potassium will be supplemented -Mild transaminitis will repeat liver enzymes again tomorrow can be secondary to valproic acid -History of dementia DVT prophylaxis: Lovenox all Plan: Neurology following undergoing further workup and patient is status post EEG awaiting official report. Medications being adjusted including titration of Keppra and valproic acid as per neurology Kidney functions worsened overnight and patient was noted to be retaining requ iring indwelling Cabrera catheter with large amounts of output. Will add Flomax and continue Cabrera for now Cardiology following recommending to continue current regimen Continue telemetry monitoring and patient awaiting a MedSurg bed Will continue gentle hydration and follow-up with repeat labs and monitor kidney functions. Replace electrolytes per protocol Recommend PT/OT therapy evaluation with social work consult as patient does reside at [facility] with plans on returning. Patient may need rehab and will await PT/OT therapy evaluation The impression and plan of care has been dictated by Mellisa Sharp, Nurse Practitioner as directed. Dr. Carmen MD I have performed a history and examination and MDM of this patient, discussed the same with the dictator, and agree with the dictator's assessment and plan as written ,documented as a scribe. Based on total visit time, I have performed more than 50% of the visit. Objective - Vital Signs Vital signs: Vital Signs Temp 98.2 F 11/29/24 06:21 Pulse 67 11/29/24 09:00 Resp 18 11/29/24 09:00 BP 150/92 11/29/24 09:00 Pulse Ox 95 11/29/24 09:00 FiO2 Intake & Output 02/18/25 02/19/25 02/19/25 18:59 06:59 18:59 Output Total 1000 500 Balance -1000 -500 Weight 99.79 kg Output: Urine 1000 500 Uretheral (Cabrera) 1000 500 Other: Voiding Method Indwelling Catheter - Labs CBC & Chem 7: 11/29/24 06:06 11/29/24 06:06 Labs: Abnormal Lab Results - Last 24 Hours (Table) 11/28/24 11/28/24 11/28/24 Range/Units 08:42 11:56 14:41 Plt Count (150-450) k/uL Potassium 3.3 L (3.5-5.1) mmol/L Chloride 108 H (98-107) mmol/L Carbon Dioxide (22-30) mmol/L BUN 21 H (9-20) mg/dL Creatinine (0.66-1.25) mg/dL Calcium 8.2 L (8.4-10.2) mg/dL AST 185 H (17-59) U/L ALT 90 H (4-49) U/L Creatine Kinase [id number] H* (55-170) U/L Troponin I 0.060 H* 0.045 H* (0.000-0.034) ng/mL Total Protein 5.8 L (6.3-8.2) g/dL Albumin 3.3 L (3.5-5.0) g/dL 11/29/24 11/29/24 Range/Units 06:06 06:06 Plt Count 105 L (150-450) k/uL Potassium (3.5-5.1) mmol/L Chloride 109 H (98-107) mmol/L Carbon Dioxide 20 L (22-30) mmol/L BUN 31 H (9-20) mg/dL Creatinine 2.34 H (0.66-1.25) mg/dL Calcium 8.2 L (8.4-10.2) mg/dL AST 193 H (17-59) U/L ALT 114 H (4-49) U/L Creatine Kinase (55-170) U/L Troponin I (0.000-0.034) ng/mL Total Protein 5.5 L (6.3-8.2) g/dL Albumin 3.1 L (3.5-5.0) g/dL
--- NOTE | 2024-11-30 08:32 | P.CNNES ---
History of Present Illness Consult date: 11/29/24 Requesting physician: Anmol Valentin Reason for Consult: seizure v syncope, questionable L facial droop History of Present Illness: Patient is a 84-year-old right-handed male with history of seizure disorder, came to the hospital by ambulance yesterday at 8:13 AM for a fall. Patient's sister who is a caregiver was present by the bedside. Patient is very hard of hearing. His sister mentioned that patient had a bout of diarrhea started Wednesday afternoon and continued till Wednesday morning. As a result he was feeling very weak. She got him to eat some applesauce yogurt and juice. Later in the afternoon on Wednesday, he was feeling okay. Patient's sister states that he is currently living in [facility]. Someone checks on him 3 times a day. Yesterday, on Wednesday, when the caregiver came, saw him on the floor on his hands and knees, undressed. He just had his room on which was out. He was confused, not aware of what was going on therefore he was brought to the hospital. Unsure if he had a seizure or passed out. As per EMS flowsheet, when EMS arrived, staff mentioned they found patient on his knees and was not able to get himself up. Per staff it appears patient crawled out of the bathroom. Patient was unable to recall what happened. Patient was lethargic and answers alert oriented x 2-3. Patient is unable to stand on his own. Per staff normally patient is independent. There was no obvious injuries. Denied any neck head or back pain. Denied hitting his head. There was no chest pain or shortness of breath. Patient's vitals at the scene was blood pressure 122/71, pulse rate 90, respiration 28, saturation 93%. Temperature 99.0. Vital signs on arrival blood pressure 136/78 pulse is 79 temperature 98.1. Blood test shows normal CBC, PT PTT, normal sodium, potassium 3.3. Renal function with BUN 21 creatinine 0.91. AST 185, ALT 90. CK was 13,000 667. Troponins elevated. Depakote level 31.1 and Keppra 14.7 (3-60). Patient's CT head showed no acute intracranial process. Atrophy with chronic appearing periventricular white matter ischemic type changes. I personally reviewed CT head, agree with the findings. There is definite generalized cerebral atrophy left slightly more prominent than the right.. CT of the cervical spine showed no acute osseous abnormality of the cervical spine. Mild degenerative disc changes C5-6. Foraminal narrowing greatest on the right at C3-4. Chest x-ray showed no acute pulmonary process. Patient has not urinated all night. Once Cabrera's was placed, the whole bag was full. He has enlarged prostate. He was quite uncomfortable yesterday evening but today is better. Home medications include Depakote 500 mg at bedtime and 250 mg the morning. Aricept 10 mg, Keppra 1000 mg every 12 hours, aspirin 81 mg and amlodipine. Patient sister says that he has history of seizures for the last 3 years. Initially it was thought that he was having a TIA. 1 time he was sitting and patient's [id number] witnessed an event, in which she was having repetitive movement of his head mouth and hands which look very much like a seizure. He started following up with Dr. Mccullough. With his seizure, he blanks out for about 1 to 3 minutes. He has an appointment with his neurologist in January 2025. His last seizure was about a few months ago. Patient is not , has no children. He used to live in [place], and moved to [place] in January 2024. Review of Systems All pertinent positive and negative review of systems mentioned in the HPI. Past Medical History Past Medical History: Hypertension, Prostate Disorder Additional Past Medical History / Comment(s): dementia History of Any Multi-Drug Resistant Organisms: None Reported Past Surgical History: Unable to Obtain Past Psychological History: No Psychological Hx Reported Smoking Status: Never smoker Past Alcohol Use History: None Reported Past Drug Use History: None Reported Medications and Allergies Home Medications Medication Instructions Recorded Confirmed Type Aspirin EC [Ecotrin Low Dose] 81 mg PO DAILY@1200 06/07/24 11/28/24 History Divalproex Sodium [Divalproex 250 mg PO DAILY 06/07/24 11/28/24 History Sodium ER] Nystatin 100,000 Unit/gm Powd 1 applic TOPICAL BID 06/07/24 11/28/24 History [Mycostatin Powder] amLODIPine [Norvasc] 5 mg PO DAILY@1200 06/07/24 11/28/24 History levETIRAcetam [Keppra] 1,000 mg PO Q12HR 06/07/24 11/28/24 History Divalproex ER [Depakote ER] 500 mg PO HS 06/28/24 11/28/24 History Donepezil [Aricept] 10 mg PO DAILY 06/28/24 11/28/24 History Tamsulosin [Flomax] 0.4 mg PO PC-BID 11/28/24 11/28/24 History Allergies Allergy/AdvReac Type Severity Reaction Status Date / Time No Known Allergies Allergy Verified 11/28/24 09:50 Physical Examination - Vital Signs Vital Signs: Vital Signs Temp Pulse Pulse Resp BP Pulse Ox 11/29/24 18:20 61 16 110/61 98 11/29/24 15:00 66 16 114/61 98 11/29/24 14:00 58 L 18 11/29/24 09:00 67 18 150/92 95 11/29/24 07:47 68 18 11/29/24 06:21 98.2 F 72 18 134/83 95 11/29/24 00:51 137/67 11/29/24 00:00 81 18 11/28/24 23:00 88 18 161/78 Intake and Output 11/29/24 11/29/24 11/29/24 06:59 14:59 22:59 Output Total 1000 1700 400 Balance -1000 -1700 -400 Output: Urine 1000 1700 400 Uretheral (Cabrera) 1000 500 400 Other: Voiding Method Indwelling Catheter Patient is an elderly male, in no acute distress. Patient is alert awake oriented to time place and person. He knows it is November 2024 and that he is in [facility] in [facility]. At first he thought he was in [facility] but then he was able to tolerate his [facility]. Speech and language functions are normal. Patient can name all objects presented and repeat very well. No aphasia or dysarthria. Attention, concentration and fund of knowledge is adequate. On cranial nerve examination, pupils are equal, round and reacting to light, visual johns are full on confrontation, with no neglect on double simultaneous stimulation. Extraocular muscles are intact with no nystagmus. Face is symmetric, tongue protrudes to the midline. Palatal elevation and sensation normal, hearing is moderately decreased and shoulder shrug normal, facial sensation normal. On muscle strength testing, there is no pronator drift and the strength is normal in arms and legs distally and proximally. Deep tendon reflexes are symmetric 1 all over and plantars downgoing. Sensory to touch is equal with no neglect on double simultaneous stimulation. Cerebellar function showed no ataxia for [id number] testing. No dysdiadochokinesia. No ataxia for [id number] testing on either side. Tone and bulk of muscles normal. Patient has mild metabolic tremors of outstretched hands. Gait deferred.. On general examination, there is no carotid bruit or murmur, S1-S2 audible. Chest is clear on consultation. Abdomen is soft nontender. No organomegaly, bowel sounds present. Peripheral pulses are present. No peripheral edema. Results - Laboratory Findings CBC and BMP: 11/29/24 06:06 11/29/24 06:06 Abnormal Lab Findings: Abnormal Labs 11/28/24 11/28/24 11/28/24 08:42 08:42 08:42 Plt Count 122 L Lymphocytes # 0.5 L Potassium 3.3 L Chloride 108 H Carbon Dioxide BUN 21 H Creatinine Calcium 8.2 L AST 185 H ALT 90 H Creatine Kinase 35920 H* Troponin I 0.072 H* Total Protein 5.8 L Albumin 3.3 L 11/28/24 11/28/24 11/29/24 11:56 14:41 06:06 Plt Count 105 L Lymphocytes # Potassium Chloride Carbon Dioxide BUN Creatinine Calcium AST ALT Creatine Kinase Troponin I 0.060 H* 0.045 H* Total Protein Albumin 11/29/24 06:06 Plt Count Lymphocytes # Potassium Chloride 109 H Carbon Dioxide 20 L BUN 31 H Creatinine 2.34 H Calcium 8.2 L AST 193 H ALT 114 H Creatine Kinase Troponin I Total Protein 5.5 L Albumin 3.1 L Assessment and Plan Assessment: * 84-year-old male came with syncopal episode and loss of memory. Rule out syncope versus seizure. Patient does have history of seizure disorder, therefore seizure more likely possibility. Breakthrough seizure likely due to metabolic reason from severe diarrhea, dehydration and acute kidney injury. * Acute kidney injury * Rhabdomyolysis * Thrombocytopenia * Elevated cardiac enzymes * Hypertension * Seizure disorder * BPH with urinary retention Plan: * Patient had an EEG performed today, which was abnormal due to background slowing of mild to moderate degree. This suggestive of generalized cerebral dysfunction as can be seen with various encephalopathy of metabolic, vascular or degenerative etiology. Clinical correlation is recommended. No epileptiform activity was seen. * Patient currently on Keppra 1000 mg twice daily, and Depakote 250 mg in the morning, 500 mg at night. * Keppra level is 14.7 (3-60), Depakote level 31.1 (50-100). * Patient has acute kidney failure, therefore Keppra dose needs to be adjusted. We will decrease Keppra to 750 mg twice daily. Once renal function normalizes, can go back to Keppra 1000 mg twice daily. * D echo revealed normal LV systolic function with EF 55 to 60%. Mildly increased septal wall thickness. No obvious regional wall motion abn ormalities. Moderately increased left atrial diameter. Poorly visualized intracardiac valves. * We will check carotid Doppler. * Neurology will follow. Thank you for the consult.
[2024-11-30] MEDS: ENOXAPARIN 30 MG/0.3 ML SYRINGE SQ SCH (08:52)
[2024-11-30] MEDS ORDERED: levETIRAcetam 500 MG TAB PO SCH (09:00)
[2024-11-30 09:17] LABS: Blood Urea Nitrogen 20.2 mg/dL (9.0-27.0); Carbon Dioxide 23.5 mmol/L (21.6-31.8); Chloride 114 mmol/L (96-109); Creatine Kinase 1962 U/L (35-257); Glucose 78 mg/dL (70-110); Potassium 3.7 mmol/L (3.5-5.5); Sodium 148 mmol/L (135-145)
--- NOTE | 2024-11-30 09:36 | US ---
EXAMINATION TYPE: US carotid duplex BILAT DATE OF EXAM: 11/30/2024 Exam done portable COMPARISON: NONE CLINICAL INDICATION: Male, 84 years old with history of Syncope; TECHNIQUE: Grayscale, color Doppler and spectral Doppler evaluation of the bilateral carotid systems and vertebral arteries. Indirect Doppler criteria was utilized. FINDINGS: EXAM MEASUREMENTS: RIGHT: Peak Systolic Velocity (PSV) cm/sec ----- Right CCA: 82.0 ----- Right ICA: 93.2 ----- Right ECA: 93.7 ICA/CCA ratio: 1.1 RIGHT: End Diastole cm/sec ----- Right CCA: 16.0 ----- Right ICA: 19.7 ----- Right ECA: 4.5 LEFT: Peak Systolic Velocity (PSV) cm/sec ----- Left CCA: 98.6 ----- Left ICA: 102.5 ----- Left ECA: 83.2 ICA/CCA ratio: 1.0 LEFT: End Diastole cm/sec ----- Left CCA: 14.0 ----- Left ICA: 23.4 ----- Left ECA: 7.7 VERTEBRALS (direction of flow): Right Vertebral: Antegrade Left Vertebral: Antegrade Rhythm: Arrhythmia Distal right ICA not visualized due to patient position and vessel depth IMPRESSION: 1. Atheromatous plaquing without significant flow-limiting stenosis based on velocities within the ca rotid bifurcations. Criteria for Assigning % of Stenosis / Diameter reduction (Estimation based on the indirect measurements of the internal carotid artery velocities (ICA PSV). 1. Normal (no stenosis)=ICA PSV < 125 cm/s: ratio < 2.0: ICA EDV<40 cm/s. 2. Less than 50% stenosis=ICA PSV < 125 cm/s: ratio < 2.0: ICA EDV<40 cm/s. 3. 50 to 69% stenosis=ICA PSV of 125 to 230 cm/s: ration 2.0 ? 4.0: ICA EDV 40-100 cm/s. 4. Greater than 70% stenosis to near occlusion= ICA PSV > 230 cm/s: ratio > 4.0: ICA EDV > 100 cm/s. 5. Near occlusion= ICA PSV velocities may be low or undetectable: variable ratio and ICA EDV. 6. Total occlusion=unable to detect flow. [facility], , 11/30/2024 9:33 AM
--- NOTE | 2024-11-30 10:15 | P.PN ---
Subjective Progress Note Date: 11/30/24 HISTORY OF PRESENT ILLNESS: This is an 84-year-old male patient with past medical history of hypertension, dementia, seizure disorder. We have been asked to evaluate the patient for syncope versus seizure. Patient's sister Eve is at the bedside and she states that she saw the patient last evening at around 4:00 and then when staff went into his room at [facility] at 7:30 in the morning, they found him on the ground. Patient does not remember anything that happened. He does not recall having chest pain, shortness of breath, palpitations, lightheadedness or dizziness. He denies any nausea or vomiting. He apparently did have some diarrhea yesterday and had an accident in his bed and was feeling tired most of the day. Patient sister states that he has been having seizures for the past 3 years where he has major blacking out episodes and feels tired afterwards. When patient is asked why he is here he states that he is here because he had a seizure but this episode was not witnessed. Blood pressure 114/71, heart rate 84, pulse ox 96% on 2 L nasal cannula. Patient is seen today in the emergency center waiting for bed on the observation unit. -EKG: Sinus rhythm with frequent PVCs. -Chest x-ray: No acute process. -CT brain and cervical spine: No acute intracranial process. Chronic white matter ischemic changes. No acute osseous abnormality of the cervical spine. Mild degenerative disc disease. Foraminal narrowing. -Laboratory studies: WBC 6.9, hemoglobin 14.5, platelet count 122. Sodium 139, potassium 3.3, BUN 21 creatinine 0.91. Troponin 0.072, AST 185, ALT 90. -Home cardiac medications: Amlodipine 5 mg daily at noon, aspirin 81 mg daily at noon. 11/29/2024 Patient examined this morning at the bedside in the emergency room. Patient currently denies any chest pain or pressure. He denies any shortness of breath. Creatinine today worsened at 2.34. Patient has been receiving IV fluids at 100 cc an hour. Vital signs are stable. Echocardiogram completed revealing ejection fraction 55 to 60%, no obvious regional wall motion abnormalities, mild pulmonary hypertension, mild MR, mild TR, no pericardial effusion. Per nursing, patient did have issues with urinary retention overnight and required insertion of indwelling urinary catheter 11/30 Patient seen and examined on the [facility] floor. Patient is currently on oxygen. He denies shortness of breath. No chest pain or chest pressure. Blood pressure 153/77, heart rate 56, pulse ox 95% on 2 L nasal cannula. Repeat blood work reveals sodium 148, potassium 3.7, creatinine is improved at 1.0. CK is 1962 which is improved. Echocardiogram reveals technically difficult study, normal LV systolic function, poorly visualized intracardiac valves. No pericardial effusion. Normal aorta root and proximal ascending aorta. PHYSICAL EXAM: VITAL SIGNS: Reviewed. GENERAL: Well-developed in no acute distress. NECK: Supple. No JVD or thyromegaly LUNGS: Respirations even and unlabored. Lungs essentially clear to auscultation bilaterally. HEART: Regular rate and rhythm. S1 and S2 heard. EXTREMITIES: Normal range of motion. No clubbing or cyanosis. Peripheral pulses intact. No lower extremity edema ASSESSMENT: Seizure versus syncope. Seizure is most likely due to patient's history Rhabdomyolysis Acute renal failure Elevated troponins most likely secondary to acute kidney injury and rhabdomyoly sis Diarrhea Thrombocytopenia Hypertension Dementia Seizure disorder Mild pulmonary hypertension Urinary retention requiring indwelling urinary catheter insertion PLAN: Continue current cardiac medications No statin due to elevated CK No further cardiac workup at this time Plan is for medical treatment of elevated troponins in the face of acute renal failure and patient is chest pain-free. Cardiology will sign off this case and follow on an as-needed basis. Please reconsult for any new concerns. Patient may follow-up in the office in one to [address] Martinez. Nurse practitioner note has been reviewed by physician. Signing provider agrees with the documented findings, assessment, and plan of care documented by TELEPHONE TRIAGE NURSE as a scribe. Objective - Vital Signs Vital signs: Vital Signs Temp 97.7 F 11/30/24 07:12 Pulse 56 L 11/30/24 07:12 Resp 18 11/30/24 07:12 BP 153/77 11/30/24 07:12 Pulse Ox 95 11/30/24 07:12 FiO2 Intake & Output 11/29/24 11/30/24 11/30/24 18:59 06:59 18:59 Intake Total 240 Output Total 2100 800 Balance -2100 -560 Weight 85.5 kg Intake: Oral 240 Output: Urine 2100 800 Uretheral (Cabrera) 900 Other: Voiding Method Indwelling Catheter Indwelling Catheter - Labs CBC & Chem 7: 11/29/24 06:06 11/30/24 04:20 Labs: Abnormal Lab Results - Last 24 Hours (Table) 11/30/24 Range/Units 04:20 Sodium 148 H (135-145) mmol/L Chloride 114 H (96-109) mmol/L BUN/Creatinine Ratio 20.20 H (12.00-20.00) Ratio Calcium 8.0 L (8.7-10.3) mg/dL Creatine Kinase 1962 H (35-257) U/L
[2024-11-30] MEDS: levETIRAcetam 500 MG TAB PO SCH (20:36)
--- NOTE | 2024-12-01 05:30 | P.PN ---
Subjective Progress Note Date: 11/30/24 84-year-old male came in with a questionable syncope versus seizure. Patient was admitted for evaluation was found found on the ground patient did not have any witnessed seizure but he does have seizure history on Keppra patient had few similar episodes where he blacks out followed by tiredness afterwards patient denied any loss of bowel or bladder continence or tongue biting at this time denied any chest pain shortness of breath palpitations. Patient had diarrhea yesterday. Lactic acid was not obtained but patient's anion gap was within normal limits CT of the brain and cervical spine did not show any significant abnormality chest x-ray no significant abnormality patient has elevated troponin to 0.060 because of which cardiology was consulted they evaluated the patient patient does not have any type I WA may have type II myocardial infarction AST and ALT are elevated to 185 and 90 respectively. Patient has highly elevated CK of 12,000. I do not have any urine available at this time valproic acid level was obtained which is 31 patient is also on valproic acid along with Keppra. 31 years below the therapeutic level of 50 11/29/2024 Patient is seen in follow-up this morning with cardiology following ordered 2D echo which is pending. Apparently per nursing staff patient had some retention overnight requiring indwelling Cabrera catheter and has had large volume output. Creatinine worsened up to 2.3 today likely secondary to retention. Will continue IV hydration and follow-up on repeat labs. Patient will need PT/OT therapy evaluation and at the bedside reports plans on returning to [facility] where he resides. Continue indwelling Cabrera catheter for now and will add Flomax. Patient does have history of enlarged prostate. No further seizure-like activity noted. 11/30/2024 Patient is seen in follow-up today with cardiology following. Kidney functions have improved maintained on hydration although sodium slightly up we will discontinue fluids as patient is eating and drinking. Monitor CPK and repeat labs in AM. Patient reports to feeling significantly weak and discussing possible ECF prior to returning to [facility]. Await PT/OT therapy evaluation and case management is following. Patient will require 3 night hospitalization according to Medicare guidelines prior to discharging to ECF. Review of systems: Constitutional: No reports of fatigue, fever, or chills Cardiovascular: No reports of chest pain or palpitations Respiratory: No reports of shortness of breath or cough GI: No reports of nausea, vomiting, or diarrhea : No reports of dysuria, reports improved retention after Cabrera catheter placement Neurovascular: reports of weakness All medications have been reviewed PHYSICAL EXAMINATION: GENERAL: The patient is alert and oriented x 23, baseline. Well developed, well nourished. Elderly appearing HEENT: Pupils are round and equally reacting to light. EOMI. No scleral icterus. No conjunctival pallor. Normocephalic, atraumatic. No pharyngeal erythema. No thyromegaly. CARDIOVASCULAR: S1 and S2 muffled PULMONARY: Diminished breath sounds bilaterally otherwise chest is clear to auscultation, no wheezing or crackles. ABDOMEN: Soft, nontender, nondistended, normoactive bowel sounds. No palpable organomegaly. MUSCULOSKELETAL: No joint swelling or deformity. EXTREMITIES: No cyanosis, clubbing, or pedal edema. NEUROLOGICAL: Gross neurological examination did not reveal any focal deficits. Diffusely weak SKIN: No rashes. Pale Assessment: -Possibility of seizure, possible breakthrough seizure as patient does have history of seizure disorder. -Elevated CK, rhabdomyolysis, traumatic with fall and prolonged downtime, improving -Troponin elevation, type II WA, per cardiology -Thrombocytopenia -Hypokalemia potassium will be supplemented -Mild transaminitis will repeat liver enzymes again tomorrow can be secondary to valproic acid -Falls with generalized weakness and gait dysfunction -History of dementia DVT prophylaxis: Lovenox GI prophylaxis Full code Plan: Neurology following undergoing further workup and patient is status post EEG. Medications being adjusted including titration of Keppra and valproic acid as per neurology Kidney functions have improved after gentle hydration although sodium slightly elevated at 146. Will discontinue IV fluids. Repeat labs ordered for a.m. including CK level which is trending down Continue indwelling Cabrera catheter as patient was retaining and will continue Flomax Cardiology following recommending to continue current regimen Recommend PT/OT therapy evaluation daily as patient does reside at [facility] with plans on returning. Patient may need rehab as he is significantly weak and having falls although normally is ambulatory with a walker while at [facility]. Case management consulted will await PT/OT therapy evaluation. Patient will also require 3 night hospitalization according to Medicare guidelines and would be able to discharge to [facility] on 12/02/2024 The impression and plan of care has been dictated by Mellisa Sharp, Nurse Practitioner as directed. Dr. Carmen MD I have performed a history and examination and MDM of this patient, discussed the same with the dictator, and agree with the dictator's assessment and plan as written ,documented as a scribe. Based on total visit time, I have performed more than 50% of the visit. Objective - Vital Signs Vital signs: Vital Signs Temp 97.7 F 11/30/24 07:12 Pulse 56 L 11/30/24 07:12 Resp 18 11/30/24 07:12 BP 153/77 11/30/24 07:12 Pulse Ox 95 11/30/24 07:12 FiO2 Intake & Output 11/29/24 11/30/24 11/30/24 18:59 06:59 18:59 Intake Total 240 Output Total 2100 800 Balance -2100 -560 Weight 85.5 kg Intake: Oral 240 Output: Urine 2100 800 Uretheral (Cabrera) 900 Other: Voiding Method Indwelling Catheter Indwelling Catheter - Labs CBC & Chem 7: 11/29/24 06:06 11/30/24 04:20 Labs: Abnormal Lab Results - Last 24 Hours (Table) 11/30/24 Range/Units 04:20 Sodium 148 H (135-145) mmol/L Chloride 114 H (96-109) mmol/L BUN/Creatinine Ratio 20.20 H (12.00-20.00) Ratio Calcium 8.0 L (8.7-10.3) mg/dL Creatine Kinase 1962 H (35-257) U/L
[2024-12-01] MEDS: ENOXAPARIN 40 MG/0.4 ML SYRINGE SQ SCH (08:16)
[2024-12-01 10:50] LABS: BUN/Creat Ratio 18.29 Ratio (12.00-20.00); Blood Urea Nitrogen 12.8 mg/dL (9.0-27.0); Carbon Dioxide 26.2 mmol/L (21.6-31.8); Chloride 108 mmol/L (96-109); Glucose 80 mg/dL (70-110); Potassium 3.1 mmol/L (3.5-5.5); Sodium 144 mmol/L (135-145)
--- NOTE | 2024-12-01 11:14 | P.PN ---
Subjective Progress Note Date: 11/30/24 Patient was seen for a follow-up. Patient is laying in the bed. Offers no complaints. No further seizure or syncope. No new concerns. Objective - Vital Signs Vital signs: Vital Signs Temp 97.7 F 11/30/24 13:08 Pulse 55 L 11/30/24 13:08 Resp 18 11/30/24 13:08 BP 143/81 11/30/24 13:08 Pulse Ox 95 11/30/24 13:08 FiO2 Intake & Output 11/29/24 11/30/24 11/30/24 18:59 06:59 18:59 Intake Total 240 Output Total 2100 800 Balance -2100 -560 Weight 85.5 kg Intake: Oral 240 Output: Urine 2100 800 Uretheral (Cabrera) 900 Other: Voiding Method Indwelling Catheter Indwelling Catheter Indwelling Catheter - Exam Patient is much more alert and awake. Patient is fully oriented. Overall mentation appears better than yesterday and normal. Detailed cognitive function testing deferred. Speech and language functions normal. Patient is hard of hearing. Examination is essentially unchanged otherwise. - Labs CBC & Chem 7: 11/29/24 06:06 12/01/24 03:06 Labs: Abnormal Lab Results - Last 24 Hours (Table) 11/30/24 Range/Units 04:20 Sodium 148 H (135-145) mmol/L Chloride 114 H (96-109) mmol/L BUN/Creatinine Ratio 20.20 H (12.00-20.00) Ratio Calcium 8.0 L (8.7-10.3) mg/dL Creatine Kinase 1962 H (35-257) U/L Assessment and Plan Assessment: * 84-year-old male came with syncopal episode and loss of memory. Rule out syncope versus seizure. Patient does have history of seizure disorder, therefore seizure more likely possibility. Breakthrough seizure likely due to metabolic reason from severe diarrhea, dehydration and acute kidney injury. * Acute kidney injury, resolved * Rhabdomyolysis, improved * Thrombocytopenia * Elevated cardiac enzymes * Hypertension * Seizure disorder * BPH with urinary retention Plan: * EEG 11/29/2024 was abnormal due to background slowing of mild to moderate degree. This suggestive of generalized cerebral dysfunction as can be seen with various encephalopathy of metabolic, vascular or degenerative etiology. Clinical correlation is recommended. No epileptiform activity was seen. * Patient currently on Keppra 1000 mg twice daily, and Depakote 250 mg in the morning, 500 mg at night. * Keppra level is 14.7 (3-60), Depakote level 31.1 (50-100). * Patient's renal functions have normalized. We will resume Keppra 1000 mg twice daily. * Renal functions normalized. CK also improved 1961. * 2D echo revealed normal LV systolic function with EF 55 to 60%. Mildly increased septal wall thickness. No obvious regional wall motion abnormalities. Moderately increased left atrial diameter. Poorly visualized intracardiac valves. * Carotid Doppler revealed atheromatous plaquing without significant flow- limiting stenosis based on velocities within the carotid bifurcations. Antegrade flow in both vertebral arteries * Neurologically clear for discharge, if medically cleared.
[2024-12-01] MEDS ORDERED: Potassium Replacement Protocol 1 EACH MISC MISCELLANE PRN (20:02)
[2024-12-01] MEDS ORDERED: ACETAMINOPHEN TAB 325 MG TAB PO PRN (20:04)
[2024-12-01] MEDS: POTASSIUM CHLORIDE ER 20 MEQ TAB.ER PO SCH (20:54)
--- NOTE | 2024-12-02 05:43 | P.PN ---
Subjective Progress Note Date: 12/01/24 84-year-old male came in with a questionable syncope versus seizure. Patient was admitted for evaluation was found found on the ground patient did not have any witnessed seizure but he does have seizure history on Keppra patient had few similar episodes where he blacks out followed by tiredness afterwards patient denied any loss of bowel or bladder continence or tongue biting at this time denied any chest pain shortness of breath palpitations. Patient had diarrhea yesterday. Lactic acid was not obtained but patient's anion gap was within normal limits CT of the brain and cervical spine did not show any significant abnormality chest x-ray no significant abnormality patient has elevated troponin to 0.060 because of which cardiology was consulted they evaluated the patient patient does not have any type I TX may have type II myocardial infarction AST and ALT are elevated to 185 and 90 respectively. Patient has highly elevated CK of 12,000. I do not have any urine available at this time valproic acid level was obtained which is 31 patient is also on valproic acid along with Keppra. 31 years below the therapeutic level of 50 11/29/2024 Patient is seen in follow-up this morning with cardiology following ordered 2D echo which is pending. Apparently per nursing staff patient had some retention overnight requiring indwelling Gurera catheter and has had large volume output. Creatinine worsened up to 2.3 today likely secondary to retention. Will continue IV hydration and follow-up on repeat labs. Patient will need PT/OT therapy evaluation and at the bedside reports plans on returning to [facility] where he resides. Continue indwelling Guerra catheter for now and will add Flomax. Patient does have history of enlarged prostate. No further seizure-like activity noted. 11/30/2024 Patient is seen in follow-up today with cardiology following. Kidney functions have improved maintained on hydration although sodium slightly up we will discontinue fluids as patient is eating and drinking. Monitor CPK and repeat labs in AM. Patient reports to feeling significantly weak and discussing possible ECF prior to returning to [facility]. Await PT/OT therapy evaluation and case management is following. Patient will require 3 night hospitalization according to Medicare guidelines prior to discharging to ECF. 12/01/2024 Patient is seen in follow-up today currently sitting up in the chair. Patient is weak and will be going to ecf on discharge prior to returning to [facility]. Patient continues with indwelling guerra catheter for retention although does have some mild hematuria noted. Appears traumatic as patient has guerra catheter in his hand on exam. Patient does have history of dementia. Maintained on flomax and will discontinue guerra catheter and monitor for further retention. Continue protocol. Patient requires 3 night hospitalization and plans on going to [facility] 12/02. Review of systems: Constitutional: No reports of fatigue, fever, or chills Cardiovascular: No reports of chest pain or palpitations Respiratory: No reports of shortness of breath or cough GI: No reports of nausea, vomiting, or diarrhea : No reports of dysuria, reports improved retention after Guerra catheter placement Neurovascular: reports of weakness All medications have been reviewed PHYSICAL EXAMINATION: GENERAL: The patient is alert and oriented x 2, baseline. Well developed, well nourished. Elderly appearing HEENT: Pupils are round and equally reacting to light. EOMI. No scleral icterus. No conjunctival pallor. Normocephalic, atraumatic. No pharyngeal erythema. No thyromegaly. CARDIOVASCULAR: S1 and S2 muffled PULMONARY: Diminished breath sounds bilaterally otherwise chest is clear to auscultation, no wheezing or crackles. ABDOMEN: Soft, nontender, nondistended, normoactive bowel sounds. No palpable organomegaly. MUSCULOSKELETAL: No joint swelling or deformity. EXTREMITIES: No cyanosis, clubbing, or pedal edema. NEUROLOGICAL: Gross neurological examination did not reveal any focal deficits. Diffusely weak SKIN: No rashes. Pale Assessment: -Possibility of seizure, possible breakthrough seizure as patient does have history of seizure disorder. -Elevated CK, rhabdomyolysis, traumatic with fall and prolonged downtime, improving -Troponin elevation, type II TX, per cardiology -urinary retention requiring indwelling guerra catheter now with hematuria secondary to trauma as patient was pulling at catheter. -Thrombocytopenia -Hypokalemia, improving -Mild transaminitis, trending down, possibly secondary to valproic acid -Falls with generalized weakness and gait dysfunction -History of dementia DVT prophylaxis: Lovenox GI prophylaxis Full code Plan: Neurology following undergoing further workup and patient is status post EEG. Medications being adjusted including titration of Keppra and valproic acid as per neurology Kidney functions have improved Patient Continues with indwelling Guerra catheter as patient had retention on admission. maintained on flomax. some mild hematuria noted in the guerra likely secondary to trauma as patient had catheter in his hand on exam. Will dc guerra and follow protocol for retention as needed. Hemoglobin is stable. Cardiology following recommending to continue current regimen PT/OT therapy evaluated and patient needs ECF on discharge. Case management following with plans to [facility] on discharge. Patient requires 3 night hospitalization according to Medicare guidelines and would be able to discharge to ECF on 12/02/2024 The impression and plan of care has been dictated by Mellisa Sharp, Nurse Practitioner as directed. Dr. Carmen MD I have performed a history and examination and MDM of this patient, discussed the same with the dictator, and agree with the dictator's assessment and plan as written ,documented as a scribe. Based on total visit time, I have performed more than 50% of the visit. Objective - Vital Signs Vital signs: Vital Signs Temp 97.5 F L 12/01/24 07:13 Pulse 52 L 12/01/24 07:13 Resp 18 12/01/24 07:13 BP 137/70 12/01/24 07:13 Pulse Ox 95 12/01/24 07:13 FiO2 Intake & Output 11/30/24 12/01/24 12/01/24 18:59 06:59 18:59 Intake Total 1430 Output Total 650 2125 Balance -650 -695 Weight 84.5 kg Intake: Oral 1430 Output: Urine 650 2125 Other: Voiding Method Indwelling Catheter Indwelling Catheter Indwelling Catheter # Bowel Movements 1 2 - Labs CBC & Chem 7: 11/29/24 06:06 12/01/24 03:06
[2024-12-02] MEDS: PANTOPRAZOLE 40 MG TABLET PO SCH (06:29)
[2024-12-02 10:09] LABS: Basophils # (A) 0.02 X 10*3/uL (0.00-0.10); Basophils % (A) 0.6 %; Eosinophils # (A) 0.12 X 10*3/uL (0.04-0.35); Eosinophils % (A) 3.7 %; HCT 38.9 % (39.6-50.0); HGB 13.4 g/dL (13.0-17.0); Lymphocytes # (A) 1.05 X 10*3/uL (0.90-5.00); MCH 29.5 pg (27.0-32.0); MCHC 34.4 g/dL (32.0-37.0); MCV 85.7 FL (80.0-97.0); Mean Platelet Volume 10.7 FL (9.5-12.2); Monocytes # (A) 0.36 X 10*3/uL (0.20-1.00); NRBC Per 100 WBC 0 X 10*3/uL (0.00-0.01); Neutrophils # (A) 1.71 X 10*3/uL (1.80-7.70); Neutrophils % (A) 52.1 %; Platelet Count 135 X 10*3/uL (140-440); RBC 4.54 X 10*6/uL (4.40-5.60); RDW 13.1 % (11.5-14.5); WBC 3.28 X 10*3/uL (4.50-10.00)
[2024-12-02 12:14] LABS: BUN/Creat Ratio 15.12 Ratio (12.00-20.00); Blood Urea Nitrogen 12.1 mg/dL (9.0-27.0); Calcium 8.1 mg/dL (8.7-10.3); Carbon Dioxide 26.7 mmol/L (21.6-31.8); Chloride 107 mmol/L (96-109); Glucose 82 mg/dL (70-110); Potassium 3.5 mmol/L (3.5-5.5); Sodium 142 mmol/L (135-145)
--- NOTE | 2024-12-02 13:01 | P.PN ---
Subjective Progress Note Date: 12/01/24 Patient was seen for a follow-up. Patient is laying in the bed. Offers no complaints. No further seizure or syncope. No new concerns. Objective - Vital Signs Vital signs: Vital Signs Temp 97.6 F 12/01/24 13:54 Pulse 44 L 12/01/24 13:54 Resp 18 12/01/24 13:54 BP 132/70 12/01/24 13:54 Pulse Ox 97 12/01/24 13:54 FiO2 Intake & Output 11/30/24 12/01/24 12/01/24 18:59 06:59 18:59 Intake Total 1430 Output Total 650 2125 450 Balance -650 -695 -450 Weight 84.5 kg Intake: Oral 1430 Output: Urine 650 2125 450 Other: Voiding Method Indwelling Catheter Indwelling Catheter Indwelling Catheter # Bowel Movements 1 2 - Exam Patient is much more alert and awake. Patient is fully oriented. He knows it is November and the year is 2024 and that he is in [facility] in [place]. Overall mentation appears better than yesterday and normal. Detailed cognitive function testing deferred. Speech and language functions normal. Patient is hard of hearing. Examination is essentially unchanged otherwise. - Labs CBC & Chem 7: 12/02/24 04:04 12/02/24 04:04 Labs: Abnormal Lab Results - Last 24 Hours (Table) 11/29/24 12/01/24 Range/Units 06:06 03:06 Potassium 3.1 L (3.5-5.5) mmol/L Calcium 8.0 L (8.7-10.3) mg/dL Total Creatine Kinase 6203 H (30-223) u/L Assessment and Plan Assessment: * 84-year-old male came with syncopal episode and loss of memory. Rule out syncope versus seizure. Patient does have history of seizure disorder, therefore seizure more likely possibility. Breakthrough seizure likely due to metabolic reason from severe diarrhea, dehydration and acute kidney injury. * Acute kidney injury, resolved * Rhabdomyolysis, improved * Thrombocytopenia * Elevated cardiac enzymes * Hypertension * Seizure disorder * BPH with urinary retention Plan: * EEG 11/29/2024 was abnormal due to background slowing of mild to moderate degree. This suggestive of generalized cerebral dysfunction as can be seen with various encephalopathy of metabolic, vascular or degenerative etiology. Clinical correlation is recommended. No epileptiform activity was seen. * Patient currently on Keppra 1000 mg twice daily, and Depakote 250 mg in the morning, 500 mg at night. * Keppra level is 14.7 (3-60), Depakote level 31.1 (50-100). * Patient's renal functions have normalized. We will resume Keppra 1000 mg twice daily. * CK also improved 1961. * 2D echo revealed normal LV systolic function with EF 55 to 60%. Mildly increased septal wall thickness. No obvious regional wall motion abnormalities. Moderately increased left atrial diameter. Poorly visualized intracardiac valves. * Carotid Doppler revealed atheromatous plaquing without significant flow- limiting stenosis based on velocities within the carotid bifurcations. Antegrade flow in both vertebral arteries * Continue aspirin 81 mg. * DVT prophylaxis: Patient on Lovenox 40 mg subcu daily * Neurologically clear for discharge, if medically cleared. Neurology will sign off.
--- NOTE | 2024-12-02 13:51 | P.DS ---
Providers Date of admission: 11/29/24 11:54 Attending physician: Deejay Cobb MD Consults: 11/28/24 10:30 Consult Physician Routine Consulting Provider: Irving Martinez Consult Reason/Comments: syncope v sz Do you want consulting provider notified?: Yes Consult Physician Routine Consulting Provider: Yanni Manning Consult Reason/Comments: seizure v syncope, questionable L facial droop Do you want consulting provider notified?: Yes Primary care physician: Willian Solis Hospital Course: Final Diagnosis -Possibility of seizure, possible breakthrough seizure as patient does have history of seizure disorder. -Per neurology Breakthrough seizure likely due to metabolic reason from severe diarrhea, dehydration and acute kidney injury. -Elevated CK, rhabdomyolysis, traumatic with fall and prolonged downtime, improving -Troponin elevation, type II VA, per cardiology -urinary retention requiring indwelling guerra catheter now with hematuria secondary to trauma as patient was pulling at catheter. -Thrombocytopenia -Hypokalemia, improving -Mild transaminitis, trending down, possibly secondary to valproic acid -Falls with generalized weakness and gait dysfunction -History of dementia Discharge Disposition Patient is stable for discharge home. He has been cleared by all consultations. Patient to see his usual seamer Dr. Martinez in the office in 1 week. Patient to see his known neurologist Dr Mccullough in 1 week. Follow up with PCP Dr Willian Solis in 1 to 2 days. Continue to monitor for urinary retention at the [facility]. Hospital Course 84-year-old male came in with a questionable syncope versus seizure. Patient was admitted for evaluation was found found on the ground patient did not have any witnessed seizure, however he does have seizure history. Patient is maintained on Keppra as an outpatient and follows with neurologist Dr. Calos Mccullough. Patient had few similar episodes where he blacks out followed by tiredness afterwards. Patient denied any loss of bowel or bladder continence or tongue biting at this time, denied any chest pain shortness of breath palpitations. Patient had diarrhea yesterday. Lactic acid was not obtained but patient's anion gap was within normal limits. CT of the brain and cervical spine did not show any significant abnormality. chest x-ray no significant abnormality. patient has elevated troponin to 0.060 because of which cardiology was consulted they evaluated the patient patient does not have any type I VA may have type II myocardial infarction. AST and ALT are elevated to 185 and 90 respectively. Patient has highly elevated CK of 12,000. He was also evaluated by neurology. The rest of the work was obtained he had EEG completed was abnormal due to background slowing of mild to moderate degree. This suggestive of generalized cerebral dysfunction as can be seen with various encephalopathy of metabolic, vascular or degenerative etiology. Clinical correlation is recommended. No epileptiform activity was seen. 2D echo revealed normal LV sy stolic function with EF 55 to 60%. Mildly increased septal wall thickness. No obvious regional wall motion abnormalities. Moderately increased left atrial diameter. Poorly visualized intracardiac valves. Carotid Doppler revealed atheromatous plaquing without significant flow-limiting stenosis based on velocities within the carotid bifurcations. Antegrade flow in both vertebral arteries. Patient was neurologically cleared for DC and recommending to continue aspirin 81 mg daily. His REINA has resolved with hydration and creatinine is down to 0.8 from 2.34. Indwelling guerra catheter has been removed and patient urinating without difficulty. The rest of the labs are essentially unremarkable. He is awake and alert sitting up in the chair. No acute complaints today. PT/OT evaluated the patient recommended subacute rehab and he will be discharged to [facility] on the [place] today. Please see medication reconciliation for a list of current medications. Thank you for allowing us to participate in the care of this patient. The impression and plan of care has been dictated by Yolanda Chao, Nurse Practitioner as directed. Dr. Carmen MD I have performed a history and physical examination and medical decision making of this patient, discussed the same with the dictator, and agree with the dictators assessment and plan as written, documented as a scribe. Based on total visit time, I have performed more than 50% of this visit. Patient Condition at Discharge: Stable Plan - Discharge Summary Discharge Rx Participant: Yes New Discharge Prescriptions: New Pantoprazole [Protonix] 40 mg PO AC-BRKFST tab Enoxaparin [Lovenox] 40 mg SQ DAILY each Continue Aspirin EC [Ecotrin Low Dose] 81 mg PO DAILY@1200 levETIRAcetam [Keppra] 1,000 mg PO Q12HR Nystatin 100,000 Unit/gm Powd [Mycostatin Powder] 1 applic TOPICAL BID Donepezil [Aricept] 10 mg PO DAILY amLODIPine [Norvasc] 5 mg PO DAILY@1200 Divalproex Sodium [Divalproex Sodium ER] 250 mg PO DAILY Divalproex ER [Depakote ER] 500 mg PO HS Tamsulosin [Flomax] 0.4 mg PO PC-BID Discharge Medication List Aspirin EC [Ecotrin Low Dose] 81 mg PO DAILY@1200 06/07/24 [History] Divalproex Sodium [Divalproex Sodium ER] 250 mg PO DAILY 06/07/24 [History] Nystatin 100,000 Unit/gm Powd [Mycostatin Powder] 1 applic TOPICAL BID 06/07/24 [History] amLODIPine [Norvasc] 5 mg PO DAILY@1200 06/07/24 [History] levETIRAcetam [Keppra] 1,000 mg PO Q12HR 06/07/24 [History] Divalproex ER [Depakote ER] 500 mg PO HS 06/28/24 [History] Donepezil [Aricept] 10 mg PO DAILY 06/28/24 [History] Tamsulosin [Flomax] 0.4 mg PO PC-BID 11/28/24 [History] Enoxaparin [Lovenox] 40 mg SQ DAILY each 12/02/24 [Rx] Pantoprazole [Protonix] 40 mg PO AC-BRKFST tab 12/02/24 [Rx] Follow up Appointment(s)/Referral(s): Willian Solis MD [Primary Care Provider] - 1-2 days Irving Martinez MD [STAFF PHYSICIAN] - 2 Weeks [facility], [NON-STAFF] - As Needed Calos Mccullough DO [STAFF PHYSICIAN] - 1 Week Ambulatory/Diagnostic Orders: Basic Metabolic Panel [LAB.AMB] Time Frame: 3 Days, Location: None Selected Discharge Disposition: TRANSFER TO SNF/ECF
[2024-12-02] MEDS: POTASSIUM CHLORIDE ER 20 MEQ TAB.ER PO STA (18:23)
--- NOTE | 2024-12-03 20:11 | P.PN ---
Subjective Progress Note Date: 12/03/24 84-year-old male came in with a questionable syncope versus seizure. Patient was admitted for evaluation was found found on the ground patient did not have any witnessed seizure but he does have seizure history on Keppra patient had few similar episodes where he blacks out followed by tiredness afterwards patient denied any loss of bowel or bladder continence or tongue biting at this time denied any chest pain shortness of breath palpitations. Patient had diarrhea yesterday. Lactic acid was not obtained but patient's anion gap was within normal limits CT of the brain and cervical spine did not show any significant abnormality chest x-ray no significant abnormality patient has elevated troponin to 0.060 because of which cardiology was consulted they evaluated the patient patient does not have any type I TN may have type II myocardial infarction AST and ALT are elevated to 185 and 90 respectively. Patient has highly elevated CK of 12,000. I do not have any urine available at this time valproic acid level was obtained which is 31 patient is also on valproic acid along with Keppra. 31 years below the therapeutic level of 50 11/29/2024 Patient is seen in follow-up this morning with cardiology following ordered 2D echo which is pending. Apparently per nursing staff patient had some retention overnight requiring indwelling Guerra catheter and has had large volume output. Creatinine worsened up to 2.3 today likely secondary to retention. Will continue IV hydration and follow-up on repeat labs. Patient will need PT/OT therapy evaluation and at the bedside reports plans on returning to [facility] where he resides. Continue indwelling Guerra catheter for now and will add Flomax. Patient does have history of enlarged prostate. No further seizure-like activity noted. 11/30/2024 Patient is seen in follow-up today with cardiology following. Kidney functions have improved maintained on hydration although sodium slightly up we will discontinue fluids as patient is eating and drinking. Monitor CPK and repeat labs in AM. Patient reports to feeling significantly weak and discussing possible ECF prior to returning to [facility]. Await PT/OT therapy evaluation and case management is following. Patient will require 3 night hospitalization according to Medicare guidelines prior to discharging to ECF. 12/01/2024 Patient is seen in follow-up today currently sitting up in the chair. Patient is weak and will be going to ecf on discharge prior to returning to [facility]. Patient continues with indwelling guerra catheter for retention although does have some mild hematuria noted. Appears traumatic as patient has guerra catheter in his hand on exam. Patient does have history of dementia. Maintained on flomax and will discontinue guerra catheter and monitor for further retention. Continue protocol. Patient requires 3 night hospitalization and plans on going to [facility] possible 12/02. 12/03/2023 Patients disharge was held yesterday as [facility] was unaware of the wednesday discharge. Patient was found to have significant urinary retention and indwelling guerra catheter was replaced and patient continues with hematuria although improving. Hisnreal function is WNL. He has no acute complaints today. Review of systems: Constitutional: No reports of fatigue, fever, or chills Cardiovascular: No reports of chest pain or palpitations Respiratory: No reports of shortness of breath or cough GI: No reports of nausea, vomiting, or diarrhea : No reports of dysuria, reports improved retention after Guerra catheter placement Neurovascular: reports of weakness All medications have been reviewed PHYSICAL EXAMINATION: GENERAL: The patient is alert and oriented x 2, baseline. Well developed, well nourished. Elderly appearing HEENT: Pupils are round and equally reacting to light. EOMI. No scleral icterus. No conjunctival pallor. Normocephalic, atraumatic. No pharyngeal erythema. No thyromegaly. CARDIOVASCULAR: S1 and S2 muffled PULMONARY: Diminished breath sounds bilaterally otherwise chest is clear to auscultation, no wheezing or crackles. ABDOMEN: Soft, nontender, nondistended, normoactive bowel sounds. No palpable organomegaly. MUSCULOSKELETAL: No joint swelling or deformity. EXTREMITIES: No cyanosis, clubbing, or pedal edema. NEUROLOGICAL: Gross neurological examination did not reveal any focal deficits. Diffusely weak SKIN: No rashes. Pale Assessment: -Possibility of seizure, possible breakthrough seizure as patient does have h istory of seizure disorder. -Elevated CK, rhabdomyolysis, traumatic with fall and prolonged downtime, improving -Troponin elevation, type II TN, per cardiology -urinary retention requiring indwelling guerra catheter now with hematuria secondary to trauma as patient was pulling at catheter. -Thrombocytopenia -Hypokalemia, improving -Mild transaminitis, trending down, possibly secondary to valproic acid -Falls with generalized weakness and gait dysfunction -History of dementia DVT prophylaxis: Lovenox GI prophylaxis Full code Plan: Neurology following undergoing further workup and patient is status post EEG. Medications being adjusted including titration of Keppra and valproic acid as p er neurology Kidney functions have improved Patient Continues with indwelling Guerra catheter as patient had retention on admission. maintained on flomax. some mild hematuria noted in the guerra likely secondary to trauma as patient had catheter in his hand on exam. ugerra catheter has been replaced and patient was found to have urinary retention. Cardiology following recommending to continue current regimen PT/OT therapy evaluated and patient needs ECF on discharge. Case management following with plans to [facility] on discharge. Patient requires 3 night hospitalization according to Medicare guidelines and would be able to discharge to ECF on 12/02/2024. Discharge held as [facility] unaware of wednesday discharge. Plans for DC to [facility] on Wednesday when Social work and liason available to coordinate discharge. The impression and plan of care has been dictated by Yolanda Chao, Nurse Practitioner as directed. Dr. Carmen MD I have performed a history and examination and MDM of this patient, discussed the same with the dictator, and agree with the dictator's assessment and plan as written ,documented as a scribe. Based on total visit time, I have performed more than 50% of the visit. Objective - Vital Signs Vital signs: Vital Signs Temp 98.0 F 12/03/24 14:00 Pulse 70 12/03/24 14:00 Resp 17 12/03/24 14:00 BP 132/65 12/03/24 14:00 Pulse Ox 95 12/03/24 14:00 FiO2 Intake & Output 12/03/24 12/03/24 12/04/24 06:59 18:59 06:59 Intake Total 1080 600 Output Total 1800 2000 Balance -720 -1400 Weight 84.5 kg Intake: Oral 1080 600 Output: Urine 1800 2000 Uretheral (Guerra) 1000 Other: Voiding Method Indwelling Catheter Indwelling Catheter - Labs CBC & Chem 7: 12/02/24 04:04 12/02/24 04:04 Assessment and Plan Time with Patient: Less than 30
[2024-12-04 08:43] VITALS: BP 125/68; PULSE 55; RESP 17; TEMP 98.8
--- NOTE | 2024-12-04 14:16 | P.DS ---
Providers Date of admission: 11/29/24 11:54 Expected date of discharge: 12/04/24 Attending physician: Deejay Cobb MD Consults: 11/28/24 10:30 Consult Physician Routine Consulting Provider: Irving Martinez Consult Reason/Comments: syncope v sz Do you want consulting provider notified?: Yes Consult Physician Routine Consulting Provider: Yanni Manning Consult Reason/Comments: seizure v syncope, questionable L facial droop Do you want consulting provider notified?: Yes Primary care physician: Willian Solis Hospital Course: Final Diagnosis -Possibility of seizure, possible breakthrough seizure as patient does have history of seizure disorder. -Per neurology Breakthrough seizure likely due to metabolic reason from severe diarrhea, dehydration and acute kidney injury. -Elevated CK, rhabdomyolysis, traumatic with fall and prolonged downtime, improving -Troponin elevation, type II OK, per cardiology -urinary retention requiring indwelling guerra catheter -Thrombocytopenia -Hypokalemia, improving -Mild transaminitis, trending down, possibly secondary to valproic acid -Falls with generalized weakness and gait dysfunction -History of dementia Discharge Disposition Patient is stable for discharge home. He has been cleared by all consultations. Patient to see his usual concrete paver Dr. Martinez in the office in 1 week. Patient to see his known neurologist Dr Mccullough in 1 week. Follow up with PCP Dr Willian Solis in 1 to 2 days. Continue to monitor for urinary retention at the [facility]. Hospital Course 84-year-old male came in with a questionable syncope versus seizure. Patient was admitted for evaluation was found found on the ground patient did not have any witnessed seizure, however he does have seizure history. Patient is maintained on Keppra as an outpatient and follows with neurologist Dr. Calos Mccullough. Patient had few similar episodes where he blacks out followed by tiredness afterwards. Patient denied any loss of bowel or bladder continence or tongue biting at this time, denied any chest pain shortness of breath palpitations. Patient had diarrhea yesterday. Lactic acid was not obtained but patient's anion gap was within normal limits. CT of the brain and cervical spine did not show any significant abnormality. chest x-ray no significant abnormality. patient has elevated troponin to 0.060 because of which cardiology was consulted they evaluated the patient patient does not have any type I OK may have type II myocardial infarction. AST and ALT are elevated to 185 and 90 respectively. Patient has highly elevated CK of 12,000. He was also evaluated by neurology. The rest of the work was obtained he had EEG completed was abnormal due to background slowing of mild to moderate degree. This suggestive of generalized cerebral dysfunction as can be seen with various encephalopathy of metabolic, vascular or degenerative etiology. Clinical correlation is recommended. No epileptiform activity was seen. 2D echo revealed normal LV systolic function with EF 55 to 60%. Mildly increased septal wall thickness. No obvious regional wall motion abnormalities. Moderately increased left atrial diameter. Poorly visualized intracardiac valves. Carotid Doppler revealed atheromatous plaquing without significant flow-limiting stenosis based on velocities within the carotid bifurcations. Antegrade flow in both vertebral arteries. Patient was neurologically cleared for DC and recommending to continue aspirin 81 mg daily. His REINA has resolved with hydration and creatinine is down to 0.8 from 2.34. Indwelling guerra catheter was placed as patient continues to have retention and recommend to continue with indwelling Guerra catheter and continue with Flomax 0.8 mg daily and possible outpatient follow-up with urology or trial void in the outpatient setting once patient is more mobile. The rest of the labs are essentially unremarkable. He is awake and alert sitting up in the chair. No acute complaints today. PT/OT evaluated the patient recommended subacute rehab and he will be discharged to [facility] on the [address] today. Physical exam: Gen: This is a 84-year-old male who is awake, alert and oriented x 2, baseline, well-developed, elderly appearing HEENT: Head is atraumatic, normocephalic. Pupils equal, round. Sclerae is anicteric. NECK: Supple. No JVD. No lymphadenopathy. No thyromegaly. LUNGS: Diminished breath sounds bilaterally otherwise clear to auscultation. No wheezes or rhonchi. No intercostal retractions. HEART: S1, S2 are muffled ABDOMEN: Soft. Bowel sounds are present. No masses. No tenderness. EXTREMITIES: No pedal edema. No calf tenderness. NEUROLOGICAL: Patient is awake, alert and oriented x2 Cranial nerves 2 through 12 are grossly intact. Diffusely weak Please see medication reconciliation for a list of current medications. Thank you for allowing us to participate in the care of this patient. The impression and plan of care has been dictated by Mellisa Sharp, Nurse Practitioner as directed. Dr. Carmen MD I have performed a history and examination and MDM of this patient, discussed the same with the dictator, and agree with the dictator's assessment and plan as written ,documented as a scribe. Based on total visit time, I have performed more than 50% of the visit. Patient Condition at Discharge: Stable Plan - Discharge Summary Discharge Rx Participant: Yes New Discharge Prescriptions: New Pantoprazole [Protonix] 40 mg PO AC-BRKFST tab Enoxaparin [Lovenox] 40 mg SQ DAILY each Continue Aspirin EC [Ecotrin Low Dose] 81 mg PO DAILY@1200 levETIRAcetam [Keppra] 1,000 mg PO Q12HR Nystatin 100,000 Unit/gm Powd [Mycostatin Powder] 1 applic TOPICAL BID Donepezil [Aricept] 10 mg PO DAILY amLODIPine [Norvasc] 5 mg PO DAILY@1200 Divalproex Sodium [Divalproex Sodium ER] 250 mg PO DAILY Divalproex ER [Depakote ER] 500 mg PO HS Tamsulosin [Flomax] 0.4 mg PO PC-BID Discharge Medication List Aspirin EC [Ecotrin Low Dose] 81 mg PO DAILY@1200 06/07/24 [History] Divalproex Sodium [Divalproex Sodium ER] 250 mg PO DAILY 06/07/24 [History] Nystatin 100,000 Unit/gm Powd [Mycostatin Powder] 1 applic TOPICAL BID 06/07/24 [History] amLODIPine [Norvasc] 5 mg PO DAILY@1200 06/07/24 [History] levETIRAcetam [Keppra] 1,000 mg PO Q12HR 06/07/24 [History] Divalproex ER [Depakote ER] 500 mg PO HS 06/28/24 [History] Donepezil [Aricept] 10 mg PO DAILY 06/28/24 [History] Tamsulosin [Flomax] 0.4 mg PO PC-BID 11/28/24 [History] Enoxaparin [Lovenox] 40 mg SQ DAILY each 12/02/24 [Rx] Pantoprazole [Protonix] 40 mg PO AC-BRKFST tab 12/02/24 [Rx] Follow up Appointment(s)/Referral(s): Willian Solis MD [Primary Care Provider] - 1-2 days (ECF please call for follow-up appointment.) Irving Martinez MD [STAFF PHYSICIAN] - 2 Weeks (Office stated they will call patient with appointment time and date.) [facility], [NON-STAFF] - As Needed Calos Mccullough DO [STAFF PHYSICIAN] - 1 Week Ambulatory/Diagnostic Orders: Basic Metabolic Panel [LAB.AMB] Time Frame: 3 Days, Location: None Selected Activity/Diet/Wound Care/Special Instructions: Patient is going to [facility] Activity as tolerated Recommend to continue with indwelling Guerra catheter for retention and patient is maintained on Flomax twice daily Recommend trial void once patient is more mobile Continue Guerra catheter care If patient continuing to retain, recommend outpatient follow-up with urology Discharge Disposition: TRANSFER TO SNF/ECF
== END 2024-12-04 13:02 | DRG 100 ==
LOC: EC 08:13 → 1SOBS 10:32 → 3SCARD 16:11 → 4SSUR 11-29 11:47 → OBSVTOIN 11-29 11:54 → 4SSUR 11-29 17:59
PROVIDERS: ADMIT Internal Medicine; ATTEND Internal Medicine
DX: G40.909 Epilepsy, unspecified, not intractable, without status epilepticus (principal); G93.41 Metabolic encephalopathy; I21.A1 Myocardial infarction type 2; D69.6 Thrombocytopenia, unspecified; N17.9 Acute kidney failure, unspecified; I27.20 Pulmonary hypertension, unspecified; F03.90 Unspecified dementia, unspecified severity, without behavioral disturbance, psychotic disturbance, mood disturbance, and anxiety; I10 Essential (primary) hypertension; E86.0 Dehydration; H91.90 Unspecified hearing loss, unspecified ear; R26.9 Unspecified abnormalities of gait and mobility; E87.6 Hypokalemia; I49.3 Ventricular premature depolarization; N40.1 Benign prostatic hyperplasia with lower urinary tract symptoms; R33.8 Other retention of urine; T42.6X5A Adverse effect of other antiepileptic and sedative-hypnotic drugs, initial encounter; R74.01 Elevation of levels of liver transaminase levels; T79.6XXA Traumatic ischemia of muscle, initial encounter; Z79.82 Long term (current) use of aspirin; Z79.899 Other long term (current) drug therapy; Z91.81 History of falling
CPT/HCPCS: 36415; 51702; 70450; 71046; 72125; 80048; 80053; 80164; 80177; 82550; 82552; 83735; 84484; 85025; 85027; 85610; 85730; 93005; 93306; 93880; 94760; 95819; 96360; 96361; 99285

== ENCOUNTER 2025-02-26 12:32 | Emergency (ER) | payer MEDICARE ==
--- NOTE | 2025-02-26 13:07 | ED ---
General Adult HPI - General Chief complaint: Chest Pain Stated complaint: Chest pain Time Seen by Provider: 02/26/25 12:49 Source: patient Mode of arrival: ambulatory Limitations: no limitations - History of Present Illness Initial comments: Dictation was produced using [employer] dictation software. please excuse any grammatical, word or spelling errors. Chief Complaint: 84-year-old male presents with bradycardia History of Present Illness: Patient is 84-year-old male with multiple comorbidities. He was seen at primary care physician's office. Apparently patient's initial vital signs showed heart rate into the 30s. He was being seen there today for persistent diarrhea and urinary symptoms. Sister who is at the bedside states that patient's normal heart rate is in the 50s. The ROS documented in this emergency department record has been reviewed and confirmed by me. Those systems with pertinent positive or negative responses have been documented in the HPI. All other systems are other negative and/or noncontributory. - Related Data Home Medications Medication Instructions Recorded Confirmed Aspirin EC [Ecotrin Low Dose] 81 mg PO DAILY@1200 06/07/24 02/26/25 Nystatin 100,000 Unit/gm Powd 1 applic TOPICAL BID 06/07/24 02/26/25 [Mycostatin Powder] amLODIPine [Norvasc] 5 mg PO DAILY@1200 06/07/24 02/26/25 Tamsulosin [Flomax] 0.4 mg PO PC-BID 11/28/24 02/26/25 Divalproex [Depakote] 500 mg PO BID 02/26/25 02/26/25 Donepezil [Aricept] 10 mg PO DAILY 02/26/25 02/26/25 levETIRAcetam [Keppra] 750 mg PO BID 02/26/25 02/26/25 Allergies Allergy/AdvReac Type Severity Reaction Status Date / Time No Known Allergies Allergy Verified 02/26/25 14:11 Review of Systems ROS Statement: Those systems with pertinent positive or pertinent negative responses have been documented in the HPI. ROS Other: All systems not noted in ROS Statement are negative. Past Medical History Past Medical History: Hypertension, Prostate Disorder Additional Past Medical History / Comment(s): dementia History of Any Multi-Drug Resistant Organisms: None Reported Past Surgical History: Unable to Obtain Past Psychological History: No Psychological Hx Reported Smoking Status: Never smoker Past Alcohol Use History: None Reported Past Drug Use History: None Reported General Exam - General Exam Comments Initial Comments: PHYSICAL EXAM: General Impression: Alert and oriented x3, not in acute distress HEENT: Normocephalic atraumatic, extra-ocular movements intact, pupils equal and reactive to light bilaterally, mucous membranes moist. Cardiovascular: Heart regular rate and rhythm Chest: Able to complete full sentences, no retractions, no tachypnea Abdomen: abdomen soft, non-tender, non-distended, no organomegaly Musculoskeletal: Pulses present and equal in all extremities, no peripheral edema Motor: no focal deficits noted Neurological: CN II-XII grossly intact, no focal motor or sensory deficits noted Skin: Intact with no visualized rashes Psych: Normal affect and mood Limitations: no limitations Course Vital Signs 02/26/25 02/26/25 02/26/25 12:33 13:00 14:00 Temperature 97.7 F Pulse Rate 36 L 60 54 L Respiratory 18 18 18 Rate Blood Pressure 131/73 122/90 O2 Sat by Pulse 98 96 95 Oximetry EKG Findings - EKG Comments: EKG Findings:: My EKG interpretation: Ventricular rate 54, sinus bradycardia,. Over 200, QRS 113, QTc 425. No [place] prolongation, no QTC prolongation, no ST or T- wave changes noted. Overall, this EKG is unremarkable Medical Decision Making - Medical Decision Making Was pt. sent in by a medical professional or institution (BETINA Thomas, BUSINESS INSURANCE AGENT, urgent care, hospital, or [place] health care facility...) When possible be specific @ -No Did you speak to anyone other than the patient for history (EMS, parent, family, police, friend...)? What history was obtained from this source @ -see above Did you review nursing and triage notes (agree or disagree)? Why? @ -I reviewed and agree with nursing and triage notes Were old charts reviewed (outside hosp., previous admission, EMS record, old EKG, old radiological studies, urgent care reports/EKG's, [place] [facility] facility records)? Report findings @ -No old charts were reviewed Differential Diagnosis (chest pain, altered mental status, abdominal pain women, abdominal pain men, vaginal bleeding, musculoskeletal, weakness, fever, dyspnea, syncope, headache, dizziness, GI bleed, back pain, seizure, CVA, palpatations, mental health)? @ - Differential Palpitations: Ventricular arrhythmias, atrial arrhythmias, myocardial infarction, anemia, thyrotoxicosis, electrolyte imbalance, hypokalemia, pulmonary embolism, pulmonary disease, drugs, alcohol, anxiety, stress.... This is not meant to be an all-inclusive list. EKG interpreted by me (3pts min.). @ -See above X-rays interpreted by me (1pt min.). @ -Chest x-ray is nonacute CT interpreted by me (1pt min.). @ -None done U/S interpreted by me (1pt. min.). @ -None done What testing was considered but not performed or refused? (CT, X-rays, U/S, labs)? Why? @ -None What meds were considered but not given or refused? Why? @ -None Was smoking cessation discussed for >3mins.? @ -No Were there social determinants of health that impacted care today? How? (Homelessness, low income, unemployed, alcoholism, drug addiction, transportation, low edu. Level, literacy, decrease access to med. care, halfway, rehab)? @ -No Was there de-escalation of care discussed even if they declined (Discuss DNR or withdrawal of care, Hospice)? DNR status @ -No What co-morbidities impacted this encounter? (DM, HTN, Smoking, COPD, CAD, Cancer, CVA, ARF, Chemo, Hep., AIDS, mental health diagnosis, sleep apnea, morbid obesity)? @ -None Was patient admitted / discharged? Hospital course, mention meds given and route, prescriptions, significant lab abnormalities, going to OR and other pertinent info. @ -84-year-old male sent in from the primary care clinic for evaluation of bradycardia. Patient feels at baseline he went to the clinic to be evaluated for diarrhea and urinary symptoms. Vital signs in triage shows heart rate of 36. However when patient got back to the room heart rate was 60. There was significant artifact initially however the 60s seems to be more of an accurate reading. Patient is heart rate. Sister at the bedside states that his heart rate is usually 50s and above. Patient has no complaints. Laboratory evaluation is unremarkable. Urinalysis negative. Patient feels well feels to be at baseline will be discharged to follow-up with primary care doctor Did you discuss the management of the patient with other professionals (professionals i.e. , PA, BUSINESS INSURANCE AGENT, lab, RT, psych nurse, social media coordinator, resin painter, teacher, dairy quality assurance officer, block and case maker)? Give summary @ -No Was critical care preformed (if so, how long)? @ -No Undiagnosed new problem with uncertain prognosis? @ -No Drug Therapy requiring intensive monitoring for toxicity (Heparin, Nitro, Insulin, Cardizem)? @ -No Were any procedures done? @ -No Diagnosis/symptom? Acute, or Chronic, or Acute on Chronic? Uncomplicated (without systemic symptoms) or Complicated (systemic symptoms)? @ -bradycardia Side effects of treatment? @ -No Exacerbation, Progression, or Severe Exacerbation? @ -No Poses a threat to life or bodily function? How? (Chest pain, [place], [place], pneumonia, PE, COPD, DKA, ARF, appy, cholecystitis, CVA, Diverticulitis, Homicidal, Suicidal, threat to staff... and all critical care pts) @ -No - Lab Data Result diagrams: 02/26/25 13:00 02/26/25 14:17 Lab Results 02/26/25 02/26/25 02/26/25 Range/Units 13:00 13:00 13:00 WBC 4.37 L (4.50-10.00) 10*3/uL RBC 4.95 (4.40-5.60) 10*6/uL Hgb 14.8 (13.0-17.0) g/dL Hct 41.7 (39.6-50.0) % MCV 84.2 (80.0-97.0) fL MCH 29.9 (27.0-32.0) pg MCHC 35.5 (32.0-37.0) g/dL Plt Count 141 (140-440) 10*3/uL MPV 10.0 (9.5-12.2) fL Immature Gran % (Auto) 0.2 % Neutrophils % 60.2 % Lymphocytes % 27.2 % Monocytes % 10.1 % Eosinophils % 1.8 % Basophils % 0.5 % Immature Gran # 0.01 (0.00-0.04) 10*3/uL Neutrophils # 2.63 (1.80-7.70) 10*3/uL Lymphocytes # 1.19 (0.90-5.00) 10*3/uL Monocytes # 0.44 (0.20-1.00) 10*3/uL Eosinophils # 0.08 (0.04-0.35) 10*3/uL Basophils # 0.02 (0.00-0.10) 10*3/uL PT 11.1 (10.0-12.5) sec INR 1.0 (<1.2) APTT 26.4 (22.0-30.0) sec Sodium (137-145) mmol/L Potassium (3.5-5.1) mmol/L Chloride (98-107) mmol/L Carbon Dioxide (22-30) mmol/L Anion Gap mmol/L BUN (9-20) mg/dL Creatinine (0.66-1.25) mg/dL Est GFR (CKD-EPI)AfAm (>60 ml/min/1.73 sqM) Est GFR (CKD-EPI)NonAf (>60 ml/min/1.73 sqM) Glucose (74-99) mg/dL Calcium (8.4-10.2) mg/dL Magnesium (1.6-2.3) mg/dL Total Bilirubin (0.2-1.3) mg/dL AST (17-59) U/L ALT (4-49) U/L Alkaline Phosphatase (38-126) U/L Troponin I 0.014 (0.000-0.034) ng/mL Total Protein (6.3-8.2) g/dL Albumin (3.5-5.0) g/dL Urine Color Urine Appearance (Clear) Urine pH (5.0-8.0) Ur Specific Velva (1.001-1.035) Urine Protein (Negative) Urine Glucose (UA) (Negative) Urine Ketones (Negative) Urine Blood (Negative) Urine Nitrite (Negative) Urine Bilirubin (Negative) Urine Urobilinogen (<2.0) mg/dL Ur Leukocyte Esterase (Negative) 02/26/25 02/26/25 Range/Units 14:17 15:00 WBC (4.50-10.00) 10*3/uL RBC (4.40-5.60) 10*6/uL Hgb (13.0-17.0) g/dL Hct (39.6-50.0) % MCV (80.0-97.0) fL MCH (27.0-32.0) pg MCHC (32.0-37.0) g/dL Plt Count (140-440) 10*3/uL MPV (9.5-12.2) fL Immature Gran % (Auto) % Neutrophils % % Lymphocytes % % Monocytes % % Eosinophils % % Basophils % % Immature Gran # (0.00-0.04) 10*3/uL Neutrophils # (1.80-7.70) 10*3/uL Lymphocytes # (0.90-5.00) 10*3/uL Monocytes # (0.20-1.00) 10*3/uL Eosinophils # (0.04-0.35) 10*3/uL Basophils # (0.00-0.10) 10*3/uL PT (10.0-12.5) sec INR (<1.2) APTT (22.0-30.0) sec Sodium 138 (137-145) mmol/L Potassium 3.9 (3.5-5.1) mmol/L Chloride 104 (98-107) mmol/L Carbon Dioxide 26 (22-30) mmol/L Anion Gap 8 mmol/L BUN 17 (9-20) mg/dL Creatinine 0.78 (0.66-1.25) mg/dL Est GFR (CKD-EPI)AfAm >90 (>60 ml/min/1.73 sqM) Est GFR (CKD-EPI)NonAf 84 (>60 ml/min/1.73 sqM) Glucose 76 (74-99) mg/dL Calcium 8.9 (8.4-10.2) mg/dL Magnesium 2.1 (1.6-2.3) mg/dL Total Bilirubin 0.7 (0.2-1.3) mg/dL AST 25 (17-59) U/L ALT 16 (4-49) U/L Alkaline Phosphatase 34 L (38-126) U/L Troponin I (0.000-0.034) ng/mL Total Protein 6.0 L (6.3-8.2) g/dL Albumin 3.4 L (3.5-5.0) g/dL Urine Color Yellow Urine Appearance Clear (Clear) Urine pH 6.5 (5.0-8.0) Ur Specific Velva 1.020 (1.001-1.035) Urine Protein Negative (Negative) Urine Glucose (UA) Negative (Negative) Urine Ketones 1+ H (Negative) Urine Blood Negative (Negative) Urine Nitrite Negative (Negative) Urine Bilirubin Negative (Negative) Urine Urobilinogen 2.0 (<2.0) mg/dL Ur Leukocyte Esterase Negative (Negative) Disposition Clinical Impression: Bradycardia Disposition: HOME SELF-CARE Condition: Fair Instructions (If sedation given, give patient instructions): Bradycardia (ED) Is patient prescribed a controlled substance at d/c from ED?: No Referrals: Willian Solis MD [Primary Care Provider] - 1-2 days Time of Disposition: 15:27
[2025-02-26 13:19] LABS: Basophils # (A) 0.02 10*3/uL (0.00-0.10); Basophils % (A) 0.5 %; Eosinophils # (A) 0.08 10*3/uL (0.04-0.35); Eosinophils % (A) 1.8 %; HCT 41.7 % (39.6-50.0); HGB 14.8 g/dL (13.0-17.0); Lymphocytes # (A) 1.19 10*3/uL (0.90-5.00); Lymphocytes % (A) 27.2 %; MCH 29.9 pg (27.0-32.0); MCHC 35.5 g/dL (32.0-37.0); MCV 84.2 fL (80.0-97.0); Monocytes # (A) 0.44 10*3/uL (0.20-1.00); Monocytes % (A) 10.1 %; Neutrophils # (A) 2.63 10*3/uL (1.80-7.70); Neutrophils % (A) 60.2 %; Platelet Count 141 10*3/uL (140-440); RBC 4.95 10*6/uL (4.40-5.60); RDW 13.2 % (11.5-14.5); WBC 4.37 10*3/uL (4.50-10.00)
[2025-02-26 13:33] LABS: Partial Thromboplastin Time 26.4 sec (22.0-30.0); Prothrombin Time 11.1 sec (10.0-12.5)
--- NOTE | 2025-02-26 13:34 | XR ---
EXAMINATION TYPE: XR chest 2V DATE OF EXAM: 02/26/2025 1:28 PM COMPARISON: 11/28/2024 CLINICAL INDICATION: Male, 84 years old with history of dysrhythmia, , TECHNIQUE: AP and lateral views FINDINGS: Heart upper limits of normal in size. Low lung volumes with crowded vascular markings. No consolidati on or pleural effusion. IMPRESSION: Low lung volumes with hypoventilatory changes. No definite acute process. [facility], Workstation: [facility], 02/26/2025 1:32 PM
[2025-02-26 14:33] LABS: ALT 16 U/L (4-49); African American GFR (CKD) >90 (>60 ml/min/1.73 sqM); Albumin 3.4 g/dL (3.5-5.0); Anion Gap 8 mmol/L; Blood Urea Nitrogen 17 mg/dL (9-20); Calcium 8.9 mg/dL (8.4-10.2); Carbon Dioxide 26 mmol/L (22-30); Chloride 104 mmol/L (98-107); Glucose 76 mg/dL (74-99); Non-African American GFR(CKD) 84 (>60 ml/min/1.73 sqM); Sodium 138 mmol/L (137-145); Total Bilirubin 0.7 mg/dL (0.2-1.3)
[2025-02-26 14:37] LABS: AST 25 U/L (17-59); Alkaline Phosphatase 34 U/L (38-126); Magnesium 2.1 mg/dL (1.6-2.3); Potassium 3.9 mmol/L (3.5-5.1)
[2025-02-26 15:16] LABS: Appearance,Urine Clear (Clear); Bilirubin,Urine Negative (Negative); Blood,Urine Negative (Negative); Color,Urine Yellow; Glucose,Urine (UA) Negative (Negative); Ketones,Urine 1+ (Negative); Leukocyte Esterase,Urine Negative (Negative); Nitrite,Urine Negative (Negative); PH, Urine 6.5 (5.0-8.0); Protein,Urine Negative (Negative)
[2025-02-26 15:41] VITALS: BP 145/79; PULSE 64; RESP 17; TEMP 97.5
== END 2025-02-26 15:46 | disposition home or self-care (01) ==
LOC: EC 12:32
DX: R00.1 Bradycardia, unspecified (principal)
CPT/HCPCS: 36415; 71046; 80053; 81003; 83735; 84484; 85025; 85610; 85730; 93005; 99285

== ENCOUNTER 2025-04-30 21:09 | Emergency (ER) | payer MEDICARE ==
[2025-04-30 21:20] VITALS: TEMP 98.4
--- NOTE | 2025-04-30 22:10 | ED ---
Fall HPI - General Chief Complaint: Fall Stated Complaint: Fall Time Seen by Provider: 04/30/25 21:17 Source: patient, EMS Mode of arrival: EMS - History of Present Illness Initial Comments: This patient is an 84-year-old man brought from assisted living facility to have evaluation after he had fallen twice. Most of the history comes from the patient's sister though the patient is able to recall some details of the fall. He had reportedly fallen this morning striking the anterior aspect of his left shoulder. The patient had another fall later in the day when he struck his head. Unknown if there was loss of consciousness. The patient currently is denying having any pains. The patient's sister states that his speech sounds different today. Patient does have history of moderate dementia and the sister does not notice any other obvious deficit at the moment. MD Complaint: fall -: hour(s) Fall From: standing When Fall Occurred: recurrent falls Fall Witnessed: no Place Fall Occurred: home Loss of Consciousness: unsure Prolonged Down Time?: unclear Location: head Location - Extremities: Left: Shoulder Severity scale (1-10): 0 Context: history of frequent falls - Related Data Home Medications Medication Instructions Recorded Confirmed Aspirin EC [Ecotrin Low Dose] 81 mg PO DAILY@1200 06/07/24 02/26/25 Nystatin 100,000 Unit/gm Powd 1 applic TOPICAL BID 06/07/24 02/26/25 [Mycostatin Powder] amLODIPine [Norvasc] 5 mg PO DAILY@1200 06/07/24 02/26/25 Tamsulosin [Flomax] 0.4 mg PO PC-BID 11/28/24 02/26/25 Divalproex [Depakote] 500 mg PO BID 02/26/25 02/26/25 Donepezil [Aricept] 10 mg PO DAILY 02/26/25 02/26/25 levETIRAcetam [Keppra] 750 mg PO BID 02/26/25 02/26/25 Allergies Allergy/AdvReac Type Severity Reaction Status Date / Time No Known Allergies Allergy Verified 05/09/25 21:28 Review of Systems ROS Statement: Those systems with pertinent positive or pertinent negative responses have been documented in the HPI. ROS Other: All systems not noted in ROS Statement are negative. Limitations: ROS unobtainable due to patients medical condition Constitutional: Denies: fever Respiratory: Denies: cough, dyspnea Cardiovascular: Denies: chest pain, syncope Gastrointestinal: Denies: abdominal pain, vomiting Musculoskeletal: Denies: back pain Neurological: Denies: headache, weakness Past Medical History Past Medical History: Hypertension, Myocardial Infarction ([place]), Prostate Disorde r, Seizure Disorder Additional Past Medical History / Comment(s): dementia History of Any Multi-Drug Resistant Organisms: None Reported Past Surgical History: Unable to Obtain Additional Past Surgical History / Comment(s): Unknown by patient Past Psychological History: No Psychological Hx Reported Smoking Status: Never smoker Past Alcohol Use History: Rare Past Drug Use History: None Reported General Exam General appearance: alert, in no apparent distress Head exam: Present: atraumatic, normocephalic Eye exam: Present: normal appearance, PERRL, EOMI. Absent: scleral icterus, conjunctival injection, nystagmus ENT exam: Present: normal oropharynx Neck exam: Present: normal inspection, full ROM. Absent: tenderness, meningismus Respiratory exam: Present: normal lung sounds bilaterally. Absent: respiratory distress, wheezes, rales, rhonchi, stridor, accessory muscle use Cardiovascular Exam: Present: regular rate, normal rhythm, normal heart sounds. Absent: systolic murmur, diastolic murmur, rubs, gallop GI/Abdominal exam: Present: soft. Absent: distended, tenderness, guarding, rebound, rigid, mass Extremities exam: Present: full ROM, normal capillary refill, other (Contusion to the anterior aspect of left shoulder no real tenderness, full range of motion. Contusion with abrasion to anterior aspect left knee. No tenderness, full range of motion.). Absent: tenderness, calf tenderness Neurological exam: Present: alert, CN II-XII intact. Absent: oriented X3 (Patient is oriented to person, could not state the date. He did not recognize the location), motor sensory deficit Skin exam: Present: warm, dry, normal color, abrasion Course Vital Signs 04/30/25 05/01/25 21:16 01:19 Temperature 98.4 F Pulse Rate 82 78 Respiratory 17 16 Rate Blood Pressure 134/72 98/64 O2 Sat by Pulse 96 97 Oximetry Medical Decision Making - Medical Decision Making The patient had chest x-ray that I interpreted as negative for acute infiltrate, pneumothorax, congestive heart failure The patient had CT scan of the brain that I interpreted as negative for acute intracranial hemorrhage, mass effect, midline shift. Was pt. sent in by a medical professional or institution (BETINA Thomas, VINEYARD WORKER, urgent care, hospital, or correction...) When possible be specific @ -[No] Did you speak to anyone other than the patient for history (EMS, parent, family, police, friend...)? What history was obtained from this source @ -[The patient's family member did give history Did you review nursing and triage notes (agree or disagree)? Why? @ -[I reviewed and agree with nursing and triage notes] Were old charts reviewed (outside hosp., previous admission, EMS record, old EKG, old radiological studies, urgent care reports/EKG's, correction records)? Report findings @ -[No old charts were reviewed] Differential Diagnosis (chest pain, altered mental status, abdominal pain women, abdominal pain men, vaginal bleeding, weakness, fever, dyspnea, syncope, headache, dizziness, GI bleed, back pain, seizure, CVA, palpatations, mental health, musculoskeletal)? @ -[Differential Musculoskeletal Muscular strain, contusion, ligament sprain, fracture, arthritis, septic arthritis, bursitis, cellulitis, muscle spasm, nerve compression, DVT, arterial occlusion, herpes zoster, electrolyte abnormality, tumor.... This is not meant to be in all inclusive list EKG interpreted by me (3pts min.). @ -[As above] X-rays interpreted by me (1pt min.). @ -[I interpreted as above CT interpreted by me (1pt min.). @ -[I interpreted as above U/S interpreted by me (1pt. min.). @ -[None done] What testing was considered but not performed or refused? (CT, X-rays, U/S, labs)? Why? @ -[None] What meds were considered but not given or refused? Why? @ -[None] Did you discuss the management of the patient with other professionals (professionals i.e. BETINA Thomas, VINEYARD WORKER, lab, RT, psych nurse, social secretary, alarm signal operator, teacher, articulation officer, field case manager)? Give summary @ -[No] Was smoking cessation discussed for >3mins.? @ -[No] Was critical care preformed (if so, how long)? @ -[No] Were there social determinants of health that impacted care today? How? (Homelessness, low income, unemployed, alcoholism, drug addiction, transportation, low edu. Level, literacy, decrease access to med. care, snf, rehab)? @ -[No] Was there de-escalation of care discussed even if they declined (Discuss DNR or withdrawal of care, Hospice)? DNR status @ -[No] What co-morbidities impacted this encounter? (DM, HTN, Smoking, COPD, CAD, Cancer, CVA, ARF, Chemo, Hep., AIDS, mental health diagnosis, sleep apnea, mor bid obesity)? @ -[None] Was patient admitted / discharged? Hospital course, mention meds given and route, prescriptions, significant lab abnormalities, going to OR and other pertinent info. @ -[Patient is an 84-year-old man, resident of long-term care facility brought to have evaluation after fall. The patient is not able to fully respond and during the neurologic exam and therefore CT scan of the brain is ordered. Following studies he does appear stable to have discharge back to his long-term care facility. Undiagnosed new problem with uncertain prognosis? @ -[No] Drug Therapy requiring intensive monitoring for toxicity (Heparin, Nitro, Insulin, Cardizem)? @ -[No] Were any procedures done? @ -[No] Diagnosis/symptom? @ -[Acute fall injury. Acute knee contusion Acute shoulder contusion Acute, or Chronic, or Acute on Chronic? @ -[ acute Uncomplicated (without systemic symptoms) or Complicated (systemic symptoms)? @ -[Uncomplicated Side effects of treatment? @ -[No] Exacerbation, Progression, or Severe Exacerbation? @ -[No] Poses a threat to life or bodily function? How? (Chest pain, [place], [place], pneumonia, PE, COPD, DKA, ARF, appy, cholecystitis, CVA, Diverticulitis, Homicidal, Suicidal, threat to staff... and all critical care pts) @ -[No] All treatments are based on ideal body weight as in ED triage - Lab Data Result diagrams: 04/30/25 23:08 04/30/25 23:08 Lab Results 04/30/25 04/30/25 04/30/25 Range/Units 22:39 23:08 23:08 WBC 8.84 (4.50-10.00) 10*3/uL RBC 5.11 (4.40-5.60) 10*6/uL Hgb 15.4 (13.0-17.0) g/dL Hct 43.9 (39.6-50.0) % MCV 85.9 (80.0-97.0) fL MCH 30.1 (27.0-32.0) pg MCHC 35.1 (32.0-37.0) g/dL Plt Count 154 (140-440) 10*3/uL MPV 9.8 (9.5-12.2) fL Immature Gran % (Auto) 0.2 % Neutrophils % 82.7 % Lymphocytes % 8.3 % Monocytes % 8.5 % Eosinophils % 0.1 % Basophils % 0.2 % Immature Gran # 0.02 (0.00-0.04) 10*3/uL Neutrophils # 7.31 (1.80-7.70) 10*3/uL Lymphocytes # 0.73 L (0.90-5.00) 10*3/uL Monocytes # 0.75 (0.20-1.00) 10*3/uL Eosinophils # 0.01 L (0.04-0.35) 10*3/uL Basophils # 0.02 (0.00-0.10) 10*3/uL PT 10.4 (10.0-12.5) sec INR 0.9 (<1.2) APTT 25.1 (22.0-30.0) sec Sodium (137-145) mmol/L Potassium (3.5-5.1) mmol/L Chloride (98-107) mmol/L Carbon Dioxide (22-30) mmol/L Anion Gap mmol/L BUN (9-20) mg/dL Creatinine (0.66-1.25) mg/dL Est GFR (CKD-EPI)AfAm (>60 ml/min/1.73 sqM) Est GFR (CKD-EPI)NonAf (>60 ml/min/1.73 sqM) Glucose (74-99) mg/dL POC Glucose (mg/dL) 115 H (70-110) mg/dL POC Glu Scissors Sharpener ID Rhezie Emie Calcium (8.4-10.2) mg/dL Total Bilirubin (0.2-1.3) mg/dL AST (17-59) U/L ALT (4-49) U/L Alkaline Phosphatase (38-126) U/L Troponin I (0.000-0.034) ng/mL Total Protein (6.3-8.2) g/dL Albumin (3.5-5.0) g/dL Serum Alcohol mg/dL 04/30/25 04/30/25 Range/Units 23:08 23:08 WBC (4.50-10.00) 10*3/uL RBC (4.40-5.60) 10*6/uL Hgb (13.0-17.0) g/dL Hct (39.6-50.0) % MCV (80.0-97.0) fL MCH (27.0-32.0) pg MCHC (32.0-37.0) g/dL Plt Count (140-440) 10*3/uL MPV (9.5-12.2) fL Immature Gran % (Auto) % Neutrophils % % Lymphocytes % % Monocytes % % Eosinophils % % Basophils % % Immature Gran # (0.00-0.04) 10*3/uL Neutrophils # (1.80-7.70) 10*3/uL Lymphocytes # (0.90-5.00) 10*3/uL Monocytes # (0.20-1.00) 10*3/uL Eosinophils # (0.04-0.35) 10*3/uL Basophils # (0.00-0.10) 10*3/uL PT (10.0-12.5) sec INR (<1.2) APTT (22.0-30.0) sec Sodium 137 (137-145) mmol/L Potassium 4.0 (3.5-5.1) mmol/L Chloride 99 (98-107) mmol/L Carbon Dioxide 24 (22-30) mmol/L Anion Gap 14 mmol/L BUN 18 (9-20) mg/dL Creatinine 0.70 (0.66-1.25) mg/dL Est GFR (CKD-EPI)AfAm >90 (>60 ml/min/1.73 sqM) Est GFR (CKD-EPI)NonAf 88 (>60 ml/min/1.73 sqM) Glucose 105 H (74-99) mg/dL POC Glucose (mg/dL) (70-110) mg/dL POC Glu Scissors Sharpener ID Calcium 9.6 (8.4-10.2) mg/dL Total Bilirubin 1.1 (0.2-1.3) mg/dL AST 36 (17-59) U/L ALT 17 (4-49) U/L Alkaline Phosphatase 52 (38-126) U/L Troponin I 0.033 (0.000-0.034) ng/mL Total Protein 7.2 (6.3-8.2) g/dL Albumin 4.2 (3.5-5.0) g/dL Serum Alcohol <10 mg/dL - EKG Data -: EKG Interpreted by Me EKG shows normal: sinus rhythm (With occasional PVC), axis (Normal), intervals (AL interval 201 ms, borderline prolonged. QRS duration 114 ms, borderline. QTc 428 ms.), QRS complexes (Moderate interventricular conduction delay) Rate: normal (Rate 80 bpm) Disposition Clinical Impression: Fall, Contusion of left knee, Contusion of left shoulder Disposition: HOME SELF-CARE Condition: Good Instructions (If sedation given, give patient instructions): Fall Prevention for Older Adults (ED), Contusion in Adults (ED) Is patient prescribed a controlled substance at d/c from ED?: No Referrals: Willian Solis MD [Primary Care Provider] - 1-2 days
[2025-04-30 22:41] LABS: Glucose,Whole Blood 115 mg/dL (70-110)
[2025-04-30 23:16] LABS: Basophils # (A) 0.02 10*3/uL (0.00-0.10); Basophils % (A) 0.2 %; Eosinophils # (A) 0.01 10*3/uL (0.04-0.35); Eosinophils % (A) 0.1 %; HCT 43.9 % (39.6-50.0); HGB 15.4 g/dL (13.0-17.0); Lymphocytes # (A) 0.73 10*3/uL (0.90-5.00); Lymphocytes % (A) 8.3 %; MCH 30.1 pg (27.0-32.0); MCHC 35.1 g/dL (32.0-37.0); MCV 85.9 fL (80.0-97.0); Monocytes # (A) 0.75 10*3/uL (0.20-1.00); Monocytes % (A) 8.5 %; Neutrophils # (A) 7.31 10*3/uL (1.80-7.70); Neutrophils % (A) 82.7 %; Platelet Count 154 10*3/uL (140-440); RBC 5.11 10*6/uL (4.40-5.60); RDW 13.4 % (11.5-14.5); WBC 8.84 10*3/uL (4.50-10.00)
[2025-04-30 23:26] LABS: ALT 17 U/L (4-49); AST 36 U/L (17-59); African American GFR (CKD) >90 (>60 ml/min/1.73 sqM); Albumin 4.2 g/dL (3.5-5.0); Alkaline Phosphatase 52 U/L (38-126); Anion Gap 14 mmol/L; Blood Urea Nitrogen 18 mg/dL (9-20); Calcium 9.6 mg/dL (8.4-10.2); Carbon Dioxide 24 mmol/L (22-30); Chloride 99 mmol/L (98-107); Glucose 105 mg/dL (74-99); Non-African American GFR(CKD) 88 (>60 ml/min/1.73 sqM); Potassium 4.0 mmol/L (3.5-5.1); Sodium 137 mmol/L (137-145); Total Protein 7.2 g/dL (6.3-8.2)
[2025-04-30 23:48] LABS: INR 0.9 (<1.2); Partial Thromboplastin Time 25.1 sec (22.0-30.0); Prothrombin Time 10.4 sec (10.0-12.5)
--- NOTE | 2025-04-30 23:53 | XR ---
EXAM: XR Chest, 1 View CLINICAL HISTORY: ITS.REASON XR Reason: altered mental status TECHNIQUE: Frontal view of the chest. COMPARISON: No relevant prior studies available. FINDINGS: Lungs: Unremarkable. No consolidation. Pleural space: Trace left pleural effusion. No pneumothorax. Heart: Unremarkable. No cardiomegaly. Mediastinum: Unremarkable. Bones/joints: Unremarkable. IMPRESSION: Trace left pleural effusion.
--- NOTE | 2025-04-30 23:55 | CT ---
EXAM: CT Head Without Intravenous Contrast CLINICAL HISTORY: ITS.REASON CT Reason: Altered mental status TECHNIQUE: Axial computed tomography images of the head/brain without intravenous contrast. CTDI is 49.2 mGy and DLP is 1184.4 mGy-cm. This CT exam was performed using one or more of the following dose reduction techniques: automated exposure control, adjustment of the mA and/or kV according to patient size, and/or use of iterative reconstruction technique. COMPARISON: No relevant prior studies available. FINDINGS: No acute intracranial hemorrhage. No midline shift or mass effect. The territorial jung-white matter differentiation is maintained throughout. Age-related cerebral volume loss. Periventricular and subcortical white matter hypoattenuation, consistent with chronic microangiopathy. The visualized orbits appear grossly unremarkable. The calvarium is intact. The visualized paranasal sinuses and mastoid air cells are grossly clear. IMPRESSION: No acute intracranial hemorrhage, midline shift, or mass effect.
[2025-05-01 01:21] VITALS: BP 98/64; PULSE 78; RESP 16
== END 2025-05-01 01:23 | disposition home or self-care (01) ==
LOC: EC 21:09
DX: S80.02XA Contusion of left knee, initial encounter (principal); S40.012A Contusion of left shoulder, initial encounter; F03.B0 Unspecified dementia, moderate, without behavioral disturbance, psychotic disturbance, mood disturbance, and anxiety; W18.30XA Fall on same level, unspecified, initial encounter
CPT/HCPCS: 36415; 93005; 80053; 84484; 85025; 85610; 85730; 71045; 70450; 99285; G0480; 80320

== ENCOUNTER 2025-05-08 11:05 | Emergency (ER) | payer MEDICARE ==
[2025-05-08 11:29] VITALS: TEMP 97.6
--- NOTE | 2025-05-08 11:50 | ED ---
Fall HPI - General Chief Complaint: Fall Stated Complaint: Falls Time Seen by Provider: 05/08/25 11:16 Source: patient, EMS, RN notes reviewed Mode of arrival: EMS Limitations: no limitations - History of Present Illness Initial Comments: This is an 84-year-old male with history including dementia, AMI, hypertension, BPH and seizure disorder presenting from [facility] via EMS with cervical collar for unwitnessed fall. Patient states he was standing to go to the bathroom when he experienced dizziness, suffering a fall without striking head, loss of consciousness, seizure postictal/confused state. Patient endorses right shoulder pain (5/10) and would later mention decreased urinary output. Patient denies headache, neck pain, vision changes, dizziness. Denies chest pain, palpitations, SOB prior to or after fall. 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 Fall Witnessed: no Place Fall Occurred: alf/SNF Loss of Consciousness: unsure Prolonged Down Time?: no Symptoms Prior to Fall: dizziness Location - Extremities: Right: Shoulder Severity scale (1-10): 5 Associated Symptoms: denies - Related Data Home Medications Medication Instructions Recorded Confirmed Aspirin EC [Ecotrin Low Dose] 81 mg PO DAILY@1200 06/07/24 02/26/25 Nystatin 100,000 Unit/gm Powd 1 applic TOPICAL BID 06/07/24 02/26/25 [Mycostatin Powder] amLODIPine [Norvasc] 5 mg PO DAILY@1200 06/07/24 02/26/25 Tamsulosin [Flomax] 0.4 mg PO PC-BID 11/28/24 02/26/25 Divalproex [Depakote] 500 mg PO BID 02/26/25 02/26/25 Donepezil [Aricept] 10 mg PO DAILY 02/26/25 02/26/25 levETIRAcetam [Keppra] 750 mg PO BID 02/26/25 02/26/25 Allergies Allergy/AdvReac Type Severity Reaction Status Date / Time No Known Allergies Allergy Verified 05/09/25 21:28 Review of Systems ROS Statement: Those systems with pertinent positive or pertinent negative responses have been documented in the HPI. ROS Other: All systems not noted in ROS Statement are negative. Past Medical History Past Medical History: Hypertension, Myocardial Infarction ([place]), Prostate Disorder, Seizure Disorder Additional Past Medical History / Comment(s): dementia History of Any Multi-Drug Resistant Organisms: None Reported Past Surgical History: Unable to Obtain Additional Past Surgical History / Comment(s): Unknown by patient Past Psychological History: No Psychological Hx Reported Smoking Status: Never smoker Past Alcohol Use History: Rare Past Drug Use History: None Reported General Exam General appearance: alert, in no apparent distress Head exam: Present: atraumatic, normocephalic, normal inspection, other (Negative Johnson sign) Eye exam: Present: normal appearance, PERRL, EOMI, other (Negative raccoon eyes). Absent: scleral icterus, conjunctival injection, periorbital swelling Pupils: Present: normal accommodation ENT exam: Present: normal exam, mucous membranes moist, TM's normal bilaterally (Negative hemotympanum) Neck exam: Present: normal inspection. Absent: tenderness, meningismus, lymphadenopathy Respiratory exam: Present: normal lung sounds bilaterally. Absent: respiratory distress, wheezes, rales, rhonchi, stridor, chest wall tenderness, accessory muscle use Cardiovascular Exam: Present: regular rate, normal rhythm, normal heart sounds. Absent: systolic murmur, diastolic murmur, rubs, gallop, clicks GI/Abdominal exam: Present: soft, normal bowel sounds. Absent: distended, tenderness, guarding, rebound, rigid Extremities exam: Present: normal inspection, full ROM, tenderness (Positive right scapula tenderness without obvious crepitus.), normal capillary refill, other (Distal upper and lower extremity neurovascular and motor function intact. Distal pulses +2 bilaterally for upper and lower extremities). Absent: pedal edema, joint swelling, calf tenderness Back exam: Present: normal inspection. Absent: vertebral tenderness Neurological exam: Present: alert, oriented X3, CN II-XII intact Psychiatric exam: Present: normal affect, normal mood Skin exam: Present: warm, dry, intact, normal color. Absent: rash Course Vital Signs 05/08/25 05/08/25 05/08/25 11:26 14:00 15:30 Temperature 97.6 F Pulse Rate 48 L 52 L 51 L Respiratory 16 16 14 Rate Blood Pressure 132/77 122/91 188/87 O2 Sat by Pulse 96 96 97 Oximetry 05/08/25 17:07 Temperature 97.6 F Pulse Rate 87 Respiratory 16 Rate Blood Pressure 180/113 O2 Sat by Pulse 98 Oximetry Procedures - Catheter Insertion (Urinary) Indications: to alleviate urinary retention Prophylactic Antibiotics Given: No Bladder Scan/US before Catheterization: Yes (538) Results: successfully catheterized-immediate flow Patient Tolerated Procedure: well, no complications Complications: none Medical Decision Making - Medical Decision Making Was pt. sent in by a medical professional or institution (, PA, COTTONSEED MEAT PRESSER, urgent care, hospital, or alf...) When possible be specific @ -[facility] Did you speak to anyone other than the patient for history (EMS, parent, family, police, friend...)? What history was obtained from this source @ -No Did you review nursing and triage notes (agree or disagree)? Why? @ -I reviewed and agree with nursing and triage notes Were old charts reviewed (outside hosp., previous admission, EMS record, old EKG, old radiological studies, urgent care reports/EKG's, alf records)? Report findings @ -No old charts were reviewed Differential Diagnosis (chest pain, altered mental status, abdominal pain women, abdominal pain men, vaginal bleeding, weakness, fever, dyspnea, syncope, headache, dizziness, GI bleed, back pain, seizure, CVA, palpatations, mental health, musculoskeletal)? @ -Differential Musculoskeletal Muscular strain, contusion, ligament sprain, fracture, arthritis, septic arthritis, bursitis, cellulitis, muscle spasm, nerve compression, DVT, arterial occlusion, herpes zoster, electrolyte abnormality, tumor.... This is not meant to be in all inclusive list EKG interpreted by me (3pts min.). @ -Sinus bradycardia with solitary PVC and moderate intraventricular conduction delay. No ST deviation or T wave inversion. Ventricular rate 56 BPM, MICHELA 195 ms, QRS 114 ms, QTc 440 ms. X-rays interpreted by me (1pt min.). @ -Right shoulder x-ray shows no acute fracture, dislocation or soft tissue swelling. CT interpreted by me (1pt min.). @ -Head/cervical spine CT shows no acute fracture/dislocation of cervical spine with no acute intracranial hemorrhage, mass effect or midline shift. U/S interpreted by me (1pt. min.). @ -None done What testing was considered but not performed or refused? (CT, X-rays, U/S, labs)? Why? @ -None What meds were considered but not given or refused? Why? @ -None Did you discuss the management of the patient with other professionals (professionals i.e. Dr., PA, COTTONSEED MEAT PRESSER, lab, RT, psych nurse, social services specialist, hedge fund manager, teacher, probation officer, window caser)? Give summary @ -No Was smoking cessation discussed for >3mins.? @ -No Was critical care preformed (if so, how long)? @ -No Were there social determinants of health that impacted care today? How? (Homelessness, low income, unemployed, alcoholism, drug addiction, transportation, low edu. Level, literacy, decrease access to med. care, long term, rehab)? @ -No Was there de-escalation of care discussed even if they declined (Discuss DNR or withdrawal of care, Hospice)? DNR status @ -No What co-morbidities impacted this encounter? (DM, HTN, Smoking, COPD, CAD, Cancer, CVA, ARF, Chemo, Hep., AIDS, mental health diagnosis, sleep apnea, morbid obesity)? @ -None Was patient admitted / discharged? Hospital course, mention meds given and route, prescriptions, significant lab abnormalities, going to OR and other pertinent info. @ -Head/cervical spine CT shows no acute fracture/dislocation of cervical spine with no acute intracranial hemorrhage, mass effect or midline shift. Right shoulder x-ray shows no acute fracture, dislocation or soft tissue swelling. Straight catheter sensation ordered after bladder scan shows 538 mL. UA shows trace ketonuria, negative for UTI. Advised patient to continue previously prescribed Flomax and follow-up with PCP and urology regarding urinary retention and hypertension. Advised Tylenol every 4-6 hours as needed for shoulder pain as well as RICE. Discussed patient with Dr. Adler. Undiagnosed new problem with uncertain prognosis? @ -No Drug Therapy requiring intensive monitoring for toxicity (Heparin, Nitro, Insulin, Cardizem)? @ -No Were any procedures done? @ -Straight catheterization performed by RN Diagnosis/symptom? @ -Fall likely due to orthostasis, urinary retention, hypertensive urgency Acute, or Chronic, or Acute on Chronic? @ -Acute Uncomplicated (without systemic symptoms) or Complicated (systemic symptoms)? @ -Uncomplicated Side effects of treatment? @ -No Exacerbation, Progression, or Severe Exacerbation? @ -No Poses a threat to life or bodily function? How? (Chest pain, [place], [place], pneumonia, PE, COPD, DKA, ARF, appy, cholecystitis, CVA, Diverticulitis, Homicidal, Suicidal, threat to staff... and all critical care pts) @ -No - Lab Data Lab Results 05/08/25 Range/Units 14:38 Urine Color Colorless Urine Appearance Clear (Clear) Urine pH 7.5 (5.0-8.0) Ur Specific [place] 1.007 (1.001-1.035) Urine Protein Negative (Negative) Urine Glucose (UA) Negative (Negative) Urine Ketones Trace H (Negative) Urine Blood Negative (Negative) Urine Nitrite Negative (Negative) Urine Bilirubin Negative (Negative) Urine Urobilinogen <2.0 (<2.0) mg/dL Ur Leukocyte Esterase Negative (Negative) Disposition Clinical Impression: Fall, Urinary retention, Hypertensive urgency Disposition: HOME SELF-CARE Condition: Fair Instructions (If sedation given, give patient instructions): Urinary Retention in Men (ED), Fall Prevention for Older Adults (ED) Additional Instructions: With PCP/urology regarding urinary retention. Return to ER if experiencing worsening headache, dizziness, altered mental status, altered level of consciousness, lethargy, nausea/vomiting or ongoing urinary retention. Is patient prescribed a controlled substance at d/c from ED?: No Referrals: Willian Solis MD [Primary Care Provider] - 1-2 days Mikhail Martinez MD [STAFF PHYSICIAN] - 1-2 days Time of Disposition: 14:00
--- NOTE | 2025-05-08 12:51 | CT ---
EXAMINATION TYPE: CT brain cspine wo con DATE OF EXAM: 05/08/2025 COMPARISON: 04/30/2025 CLINICAL INDICATION: Male, 84 years old with history of pain; PHH, falls TECHNIQUE: CT scan of the head and cervical spine are performed without contrast. CT DLP: 1478.[address] CTDI: mGy Automated exposure control for dose reduction was used. FINDINGS: A dental artifact limits the exam. Generalized degenerative disc disease. Hypoattenuation the white m atter most typical remote microvascular ischemic white matter changes. Soft tissue edema or hematoma overlying the left frontal bone. Soft tissue scar also the differential diagnosis. Calvarium is intac t. Nasal septal deviation with minimal changes of chronic sinusitis. Hypoattenuation the basal gangli a most likely related to remote lacunar infarct. 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 Groundglass changes in the lungs cou ld be related to respiratory motion. Generalized osteopenia with multilevel degenerative disc disease and facet arthropathy. Posterior spo ndylosis C5-C6. Canal stenosis not excluded. Severe degenerative changes of the atlantoaxial joint. T here is no acute fracture or dislocation evident in the cervical spine. Chronic appearing deformity o f the spine is process of T1.. IMPRESSION: 1. There is no acute fracture or dislocation evident in the cervical spine. Chronic appearing deformi ty of the spine is process of T1. 2. No acute intracranial hemorrhage, mass effect, or midline shift is seen. [facility], , 05/08/2025 12:49 PM
--- NOTE | 2025-05-08 13:42 | XR ---
EXAMINATION TYPE: XR shoulder complete RT DATE OF EXAM: 05/08/2025 1:32 PM INDICATION: Patient age:Male; 84 years old; Reason for study: Fall, right shoulder pain; pain COMPARISON: Chest radiograph 02/26/2025 TECHNIQUE: The left shoulder was examined in AP, internally rotated and scapular Y projections. . FINDINGS: No evidence of acute osseous pathology, joint dislocation, or soft tissue swelling. The remaining por tions of the visualized chest are unremarkable. IMPRESSION: No acute osseous pathology. [facility], , 05/08/2025 1:39 PM
[2025-05-08 14:49] LABS: Bilirubin,Urine Negative (Negative); Blood,Urine Negative (Negative); Color,Urine Colorless; Glucose,Urine (UA) Negative (Negative); Ketones,Urine Trace (Negative); Leukocyte Esterase,Urine Negative (Negative); Nitrite,Urine Negative (Negative); PH, Urine 7.5 (5.0-8.0); Protein,Urine Negative (Negative); Specific Gravity,Urine 1.007 (1.001-1.035); Urobilinogen,Urine <2.0 mg/dL (<2.0)
[2025-05-08 17:09] VITALS: BP 180/113; PULSE 87; RESP 16
== END 2025-05-08 17:09 | disposition home or self-care (01) ==
LOC: EC 11:05
CPT/HCPCS: 51701; 51798; 70450; 72125; 81003; 93005; 99284

== ENCOUNTER 2025-05-09 21:22 | Emergency (ER) | payer MEDICARE ==
[2025-05-09 21:27] VITALS: RESP 18
--- NOTE | 2025-05-09 21:50 | ED ---
General Adult HPI - General Chief complaint: Urogenital Stated complaint: Urinary retention, weakness Time Seen by Provider: 05/09/25 21:31 Source: patient, family, RN notes reviewed, old records reviewed Mode of arrival: wheelchair Limitations: no limitations - History of Present Illness Initial comments: 84-year-old male history of dementia presenting with decreased urinary output and suspected urinary retention. Patient had straight cath performed in the emergency department yesterday and has been unable to void since that time. No fever. No vomiting. He does report lower abdominal discomfort. History of enlarged prostate - Related Data Home Medications Medication Instructions Recorded Confirmed Aspirin EC [Ecotrin Low Dose] 81 mg PO DAILY@1200 06/07/24 02/26/25 Nystatin 100,000 Unit/gm Powd 1 applic TOPICAL BID 06/07/24 02/26/25 [Mycostatin Powder] amLODIPine [Norvasc] 5 mg PO DAILY@1200 06/07/24 02/26/25 Tamsulosin [Flomax] 0.4 mg PO PC-BID 11/28/24 02/26/25 Divalproex [Depakote] 500 mg PO BID 02/26/25 02/26/25 Donepezil [Aricept] 10 mg PO DAILY 02/26/25 02/26/25 levETIRAcetam [Keppra] 750 mg PO BID 02/26/25 02/26/25 Allergies Allergy/AdvReac Type Severity Reaction Status Date / Time No Known Allergies Allergy Verified 05/09/25 21:28 Review of Systems ROS Statement: Those systems with pertinent positive or pertinent negative responses have been documented in the HPI. ROS Other: All systems not noted in ROS Statement are negative. Past Medical History Past Medical History: Hypertension, Myocardial Infarction ([place]), Prostate Disorder, Seizure Disorder Additional Past Medical History / Comment(s): dementia History of Any Multi-Drug Resistant Organisms: None Reported Past Surgical History: Unable to Obtain Additional Past Surgical History / Comment(s): Unknown by patient Past Psychological History: No Psychological Hx Reported Smoking Status: Never smoker Past Alcohol Use History: Rare Past Drug Use History: None Reported General Exam Limitations: no limitations General appearance: alert, in no apparent distress Head exam: Present: atraumatic, normocephalic Eye exam: Present: normal appearance, PERRL Respiratory exam: Present: normal lung sounds bilaterally. Absent: respiratory distress, wheezes Cardiovascular Exam: Present: regular rate, normal rhythm GI/Abdominal exam: Present: distended (Suprapubic), tenderness. Absent: guarding Extremities exam: Present: normal inspection Neurological exam: Present: alert. Absent: motor sensory deficit Psychiatric exam: Present: flat affect Skin exam: Present: warm, dry, intact Course Vital Signs 05/09/25 21:23 Temperature 97.5 F L Pulse Rate 74 Respiratory 18 Rate Blood Pressure 180/95 O2 Sat by Pulse 98 Oximetry Medical Decision Making - Medical Decision Making Was pt. sent in by a medical professional or institution (, PA, NUMERICAL CONTROL ROUTER OPERATOR, urgent care, hospital, or shelter...) When possible be specific @ -No Did you speak to anyone other than the patient for history (EMS, parent, family, police, friend...)? What history was obtained from this source @ -No Did you review nursing and triage notes (agree or disagree)? Why? @ -I reviewed and agree with nursing and triage notes Were old charts reviewed (outside hosp., previous admission, EMS record, old EKG, old radiological studies, urgent care reports/EKG's, shelter records)? Report findings @ -No old charts were reviewed Differential Diagnosis BPH, prostate mass, urinary retention, UTI EKG interpreted by me (3pts min.). @ -As above X-rays interpreted by me (1pt min.). @ -None done CT interpreted by me (1pt min.). @ -None done U/S interpreted by me (1pt. min.). @ -None done What testing was considered but not performed or refused? (CT, X-rays, U/S, labs)? Why? @ -None What meds were considered but not given or refused? Why? @ -None Did you discuss the management of the patient with other professionals (professionals i.e. BETINA Thomas, NUMERICAL CONTROL ROUTER OPERATOR, lab, RT, psych nurse, foster care social worker, sociology research assistant, teacher, uniform patrol police officer, clinical case manager)? Give summary @ -No Was smoking cessation discussed for >3mins.? @ -No Was critical care preformed (if so, how long)? @ -No Were there social determinants of health that impacted care today? How? (Homelessness, low income, unemployed, alcoholism, drug addiction, transportation, low edu. Level, literacy, decrease access to med. care, halfway, rehab)? @ -No Was there de-escalation of care discussed even if they declined (Discuss DNR or withdrawal of care, Hospice)? DNR status @ -No What co-morbidities impacted this encounter? (DM, HTN, Smoking, COPD, CAD, Cancer, CVA, ARF, Chemo, Hep., AIDS, mental health diagnosis, sleep apnea, morbid obesity)? @Dementia Was patient admitted / discharged? Hospital course, mention meds given and route, prescriptions, significant lab abnormalities, going to OR and other pertinent info. @ -84-year-old male with urinary retention, lower abdominal fullness and tenderness, Cabrera catheter placed with significant output. Catheter will be maintained and the patient will follow-up with urology. Urine culture pending. Undiagnosed new problem with uncertain prognosis? @ Drug Therapy requiring intensive monitoring for toxicity (Heparin, Nitro, Insulin, Cardizem)? @ -No Were any procedures done? @ - Diagnosis/symptom? @ -[Urinary retention Acute, or Chronic, or Acute on Chronic? @ -Acute Uncomplicated (without systemic symptoms) or Complicated (systemic symptoms)? @ -Uncomplicated Side effects of treatment? @ -No Exacerbation, Progression, or Severe Exacerbation? @ -No Poses a threat to life or bodily function? How? (Chest pain, [place], [place], pneumonia, PE, COPD, DKA, ARF, appy, cholecystitis, CVA, Diverticulitis, Homicidal, Suicidal, threat to staff... and all critical care pts) @ -No - Lab Data Lab Results 05/09/25 Range/Units 21:53 Urine Color Yellow Urine Appearance Clear (Clear) Urine pH 6.0 (5.0-8.0) Ur Specific [place] 1.012 (1.001-1.035) Urine Protein Negative (Negative) Urine Glucose (UA) Negative (Negative) Urine Ketones 1+ H (Negative) Urine Blood Moderate H (Negative) Urine Nitrite Negative (Negative) Urine Bilirubin Negative (Negative) Urine Urobilinogen 3.0 (<2.0) mg/dL Ur Leukocyte Esterase Negative (Negative) Urine RBC 54 H (0-5) /hpf Urine WBC 2 (0-5) /hpf Urine Bacteria Rare H (None) /hpf Hyaline Casts 3 H (0-2) /lpf Urine Mucus Rare H (None) /hpf Disposition Clinical Impression: Urinary retention Disposition: HOME SELF-CARE Condition: Fair Instructions (If sedation given, give patient instructions): Urinary Retention in Men (ED) Is patient prescribed a controlled substance at d/c from ED?: No Referrals: Willian Solis MD [Primary Care Provider] - 1-2 days Jorge Lentz MD [STAFF PHYSICIAN] - 1-2 days Time of Disposition: 00:06
[2025-05-09 22:47] LABS: Bacteria,Urine Rare /hpf; Bilirubin,Urine Negative (Negative); Blood,Urine Moderate (Negative); Color,Urine Yellow; Glucose,Urine (UA) Negative (Negative); Hyaline Casts,Urine 3 /lpf (0-2); Ketones,Urine 1+ (Negative); Leukocyte Esterase,Urine Negative (Negative); Mucus,Urine Rare /hpf; Nitrite,Urine Negative (Negative); PH, Urine 6.0 (5.0-8.0); Protein,Urine Negative (Negative); RBC,Urine 54 /hpf (0-5); Specific Gravity,Urine 1.012 (1.001-1.035); Urobilinogen,Urine 3.0 mg/dL (<2.0); WBC,Urine 2 /hpf (0-5)
[2025-05-10 00:39] VITALS: BP 164/82; PULSE 79; TEMP 97.8
== END 2025-05-10 00:38 | disposition home or self-care (01) ==
LOC: EC 21:22
DX: R33.9 Retention of urine, unspecified (principal)
CPT/HCPCS: 51702; 81001; 99283